=== PATIENT | female | born 1940 | race Caucasian/White ===

== ENCOUNTER 2023-01-08 10:12 | Emergency (ER) | payer MEDICARE, SELFPAY ==
--- NOTE | ~2023-01-08 | XR_ITS ---
EXAMINATION: XR FOOT, RIGHT CLINICAL INFORMATION: Right foot pain COMPARISON: None available. TECHNIQUE: AP, lateral, and oblique views of the right foot. FINDINGS: The ankle mortise and subtalar joints are normal. There is a small retrocalcaneal and tiny calcaneal heel enthesophytes. The proximal and midfoot joints are normal. No acute fracture or dislocation seen. The soft tissues are normal. XR/XR foot RT min 3V IMPRESSION: Small retrocalcaneal and tiny calcaneal heel enthesophyte. No visible acute fracture or dislocation seen.
[2023-01-08 10:36] VITALS: BP 131/59; PULSE 63; RESP 18; TEMP 36.6; O2SAT 99; BMI 27.4
--- NOTE | 2023-01-08 10:59 | ED.GENADULT ---
HPI - General Adult General Chief complaint: Extremity Injury, Lower Stated complaint: R foot pain Time Seen by Provider: 01/08/23 10:55 Source: patient, family (daughter) and embalmer/funeral director Mode of arrival: ambulatory Limitations: language barrier History of Present Illness HPI narrative: Patient is an 82 year old assigned female at with a history of diabetes, HTN, and cardiac problems presenting to the emergency department today with right foot pain. 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 Patient's daughter states that the patient needs refills on all of her medications, a primary care provider, a flue cleaner, and a diabetes doctor. Patient's daughter states that she noticed a dark spot on the patient's right heel and she is concerned about that. Patient denies any dizziness, lightheadedness, abdominal pain, nausea, vomiting, fever, chills, blurry vision, double vision, loss of vision, chest pain, difficulty breathing, shortness of breath, back pain, night sweats, pain with urination, increased urinary frequency, increased urinary urgency, blood in her urine or stool, syncope or a near syncopal episode, recent trauma or falls, bowel incontinence, bladder incontinence, bowel retention, bladder retention, or any other complaints at this time. Relieving factors: none Exacerbating factors: none Associated symptoms: denies other symptoms Treatments prior to arrival: none Related Data Previous Rx's Medication Instructions Recorded amiodarone 200 mg tablet 200 mg PO BID #60 tabs 01/08/23 atorvastatin 20 mg tablet 20 mg PO DAILY #30 tabs 01/08/23 digoxin 125 mcg (0.125 mg) tablet 125 mcg PO DAILY #30 tabs 01/08/23 donepezil 5 mg tablet 5 mg PO DAILY #30 tabs 01/08/23 glipizide 10 mg tablet, extended 10 mg PO DAILY #30 tabs 01/08/23 release 24 hr metoprolol tartrate 50 mg tablet 50 mg PO BID #60 tabs 01/08/23 pantoprazole 40 mg tablet,delayed 40 mg PO DAILY #30 tabs 01/08/23 release rivaroxaban 20 mg tablet (Xarelto) 20 mg PO DAILY #30 tabs 01/08/23 sitagliptin phosphate 100 mg 100 mg PO DAILY #30 tabs 01/08/23 tablet (Januvia) valsartan 160 mg tablet 160 mg PO DAILY #30 tabs 01/08/23 Allergies Allergy/AdvReac Type Severity Reaction Status Date / Time No Known Allergies Allergy Verified 01/08/23 10:36 Review of Systems Constitutional: Constitutional: Reports no additional constitutional complaints, Denies chills, Denies fever(s) and Denies night sweats Eyes: Eyes: Reports no additional eye complaints, Denies blurry vision, Denies change in vision, Denies diplopia, Denies eye discharge, Denies loss of vision and Denies eye pain ENT: Denies dizziness Cardiovascular: Cardiovascular: Reports no additional cardiovascular complaints, Denies chest pain, Denies lightheadedness, Denies Loss of Consciousness and Denies dyspnea Respiratory: Respiratory: Reports no additional respiratory complaints and Denies dyspnea Gastrointestinal: Gastrointestinal: Reports no additional gastrointestinal complaints, Denies abdominal pain, Denies melena, Denies hematochezia, Denies change in bowel habits and Denies change in stool character Genitourinary: Genitourinary: Denies hematuria, Denies urinary frequency, Denies dysuria, Denies urinary incontinence, Denies urinary hesitancy and Denies urinary urgency Musculoskeletal: Musculoskeletal: Reports no additional musculoskeletal complaints, Denies numbness and Denies tingling Comments: right heel pain Neurologic: Denies dizziness, Denies loss of vision, Denies numbness and Denies tingling Psychiatric: Psychiatric: Reports no additional psychiatric complaints Endocrine: Endocrine: Reports no additional endocrine complaints Hematologic/Lymphatic: Hematologic/Lymphatic: Reports no additional hematologic/lymphatic complaints Allergic/Immunologic: Allergic/Immunologic: Reports no additional allergic/immunologic complaints PMFSH Past Medical History Attestation statement: The following information was validated with the patient. (all information validated with the patient's daughter) Source: old records reviewed, obtained from family (patient's daughter) and nursing notes reviewed Social History Social History Advance Directives: No Advance Directives Information Provided: Yes Physical Exam ED Vital Signs: Vital Signs - 24 hr 01/08/23 10:36 Temperature 97.8 F Pulse Rate 63 Respiratory Rate 18 Blood Pressure 131/59 L Pulse Oximetry 99 Oxygen Delivery Method Room Air BMI result Body Mass Index 27.4 Const General: cooperative, no acute distress, alert and awake Nutritional Appearance: well nourished Orientation/consciousness: patient oriented x3 Limitations: no limitations HENMT Head: Yes normal to inspection and Yes atraumatic Ears: hearing grossly normal bilaterally and external ears normal General nose exam: Normal external nose present, no nasal discharge noted and no epistaxis Face and sinus: Yes normal facial exam, No abrasion and No laceration Mouth: Normal oral and palatal mucosa present, no drooling and no muffled voice Eyes General: appearance normal, both eyes and all related structures Periorbital: periorbital findings normal Eyelids: Yes eyelids normal Conjunctivae: conjunctivae normal Pupils: Equal, round and reactive pupils present EOM: EOMs intact bilaterally Neck Neck: Yes normal visual inspection, Yes full ROM and Yes no lymphadenopathy Chest Chest palpation & inspection: normal inspection of the chest Resp Effort & Inspection: normal respiratory effort and able to speak in complete sentences GI Inspection: Yes normal to inspection Neuro General: patient oriented x3 and moves all extremities Cranial nerves: Yes Equal, round and reactive pupils present Cognition (Neuro): normal cognition Motor exam (neuro): 5/5 motor strength present throughout Sensory Exam: Normal double simultaneous stimulation for sensation Coordination: [id number] test normal Extrem Other: left below knee amputation and a small contusion of the right heel Psych Appearance: grossly normal Mental Status: mental status grossly normal Affect: normal affect Attitude: cooperative Thought process: Normal thought process present Thought content: Normal thought content present Insight: Good insight present (Psych) Medical Decision Making Medical Decision Making MDM Narrative: Patient is an 82 year old assigned female at with a history of diabetes, HTN, and cardiac issues presenting to the emergency department today with right heel pain. Patient's physical exam showed a left below knee amputation and right heel contusion. Patient's right foot x-ray showed no acute process. I explained my physical exam findings as well as all test results to the patient and the patient's daughter. I answered all questions asked by the patient and the patient's daughter. I stressed the importance of the patient taking her medication as prescribed. I stressed the importance of the patient following up with her primary care provider, a flue cleaner, and an program manufacturing leader. I stressed the importance of the patient returning to the emergency department immediately if her symptoms were to worsen or if she were to develop any dizziness, shortness of breath, difficulty breathing, chest pain, blurry vision, loss of vision, nausea, vomiting, abdominal pain, fever, chills, back pain, or any other complaints. Patient and the patient's daughter verbalized agreement and understanding with this treatment plan and discharge. Differential Diagnosis Differential Diagnoses: The differential diagnosis associated with the presentation includes right foot contusion Independent Interpretation I performed an independent interpretation of an: Plain X-Ray Interpretation: My interpretation is in agreement with the radiologist's impression of this imaging study. EXAMINATION: XR FOOT, RIGHT CLINICAL INFORMATION: Right foot pain? COMPARISON: None available.? TECHNIQUE: AP, lateral, and oblique views of the right foot. FINDINGS: The ankle mortise and subtalar joints are normal. There is a small retrocalcaneal and tiny calcaneal heel enthesophytes. The proximal and midfoot joints are normal. No acute fracture or dislocation seen. The soft tissues are normal. XR/XR foot RT min 3V IMPRESSION: Small retrocalcaneal and tiny calcaneal heel enthesophyte. No visible acute fracture or dislocation seen. Dictated By: Karan Ceballos MD Signed By: Electronically signed by Karan Ceballos MD 01/08/23 4200 Independent Historian Clinical information obtained from an independent historian. History obtained from or confirmed by: Other (patient's daughter) Discharge Plan Discharge Clinical Impression: Contusion of foot Patient Disposition: Home, Self-Care Instructions: Foot Contusion (ED) Additional Instructions: Follow up with a primary care provider, a flue cleaner, and an program manufacturing leader. Return to the emergency department immediately if your symptoms worsen or if you develop any dizziness, shortness of breath, difficulty breathing, chest pain, blurry vision, loss of vision, nausea, vomiting, abdominal pain, fever, chills, back pain, or any other complaints. Radha un seguimiento con un proveedor de atenci?n primaria, un cardi?logo y un endocrin?logo. Regrese al departamento de emergencias de inmediato si veena s?ntomas empeoran o si presenta mareos, falta de aire, dificultad para respirar, dolor de pecho, visi?n borrosa, p?rdida de la visi?n, n?useas, v?mitos, dolor abdominal, fiebre, escalofr?os, dolor de espalda o cualquier otras quejas. Prescriptions: New valsartan 160 mg tablet 160 mg PO DAILY Qty: 30 0RF digoxin 125 mcg (0.125 mg) tablet 125 mcg PO DAILY Qty: 30 0RF metoprolol tartrate 50 mg tablet 50 mg PO BID Qty: 60 0RF pantoprazole 40 mg tablet,delayed release (DR/EC) 40 mg PO DAILY Qty: 30 0RF Xarelto 20 mg tablet 20 mg PO DAILY Qty: 30 0RF Rx Instructions: must administer with evening meal glipizide 10 mg tablet extended release 24hr 10 mg PO DAILY Qty: 30 0RF Januvia 100 mg tablet 100 mg PO DAILY Qty: 30 0RF donepezil 5 mg tablet 5 mg PO DAILY Qty: 30 0RF amiodarone 200 mg tablet 200 mg PO BID Qty: 60 0RF atorvastatin 20 mg tablet 20 mg PO DAILY Qty: 30 0RF Referrals: [facility] [place] [facility] [Provider Group] (Call to establish and follow up with a flue cleaner (heart doctor). Llame para establecer y hacer un seguimiento con un cardi?logo (m?dico del coraz?n).) [facility] [Provider Group] (Call to establish and follow up with an program manufacturing leader (diabetes doctor). Llame para establecer y hacer un seguimiento con un endocrin?logo (m?dico de diabetes).) [facility] [place] [facility] [Provider Group] (Call to establish and follow up with a primary care provider. Llame para establecer y hacer un seguimiento con un proveedor de atenci?n primaria.) [facility] [place] Primary Care, Eric [Provider Group] (Call to establish and follow up with a primary care provider. Llame para establecer y hacer un seguimiento con un proveedor de atenci?n primaria.) [facility] [place] Primary Care,Lizbeth [Provider Group] (Call to establish and follow up with a primary care provider. Llame para establecer y hacer un seguimiento con un proveedor de atenci?n primaria.) Interventions: ED Discharge Assessment Last Done: 01/08/23 12:31 Discharge Date/Time: 01/08/23 12:32 Print Language: Syrian
== END 2023-01-08 12:32 | disposition home or self-care (01) ==
PROVIDERS: Emergency Provider Student in an Organized Health Care Education/Training Program
DX: S90.31XA Contusion of right foot, initial encounter (principal); X58.XXXA Exposure to other specified factors, initial encounter; Y93.9 Activity, unspecified; Y92.9 Unspecified place or not applicable; Y99.9 Unspecified external cause status; Z79.899 Other long term (current) drug therapy
CPT/HCPCS: 73630; 99282; 99283

== ENCOUNTER 2023-01-16 11:06 | Emergency (ER) | payer MEDICARE, SELFPAY ==
--- NOTE | ~2023-01-16 | XR_ITS ---
EXAMINATION: XR CHEST CLINICAL INFORMATION: Central line placement COMPARISON: None available. TECHNIQUE: Frontal view of the chest was obtained. FINDINGS: There is a right jugular line with tip projecting over the cavoatrial junction. The cardiac and mediastinal contours are normal. The lungs are clear. No pleural effusion or pneumothorax. Mild degenerative changes of the spine. XR/XR chest 1V IMPRESSION: Right jugular line projects over cavoatrial junction. No pneumothorax.
--- NOTE | ~2023-01-16 | XR_ITS ---
EXAMINATION: XR FOOT, RIGHT CLINICAL INFORMATION: Blood blister COMPARISON: None available. TECHNIQUE: AP, lateral, and oblique views of the right foot. FINDINGS: The bones are osteopenic. No fracture or dislocation. Mild arthritis at the first MTP joint. Small calcaneal spur. Mild soft tissue arterial calcification. Soft tissue swelling over the posterior heel new or increased from recent exam. No abnormal air collection or soft tissue foreign body seen. XR/XR foot RT min 3V IMPRESSION: Soft tissue swelling over the posterior heel new or increased from recent exam, otherwise no change.
[2023-01-16 11:31] VITALS: BP 56/33; PULSE 42; RESP 18; TEMP 36.3; O2SAT 98; BMI 24.0
--- NOTE | 2023-01-16 11:31 | ED.GENADULT ---
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 Patient's daughter states that the patient was previously seen here for the heel but now it is worse. Patient's daughter states that they have not been able to get her in for follow up at any of the specialists she needs. Patient denies any dizziness, lightheadedness, abdominal pain, nausea, vomiting, fever, chills, blurry vision, double vision, loss of vision, chest pain, difficulty breathing, shortness of breath, back pain, night sweats, pain with urination, increased urinary frequency, increased urinary urgency, blood in her urine or stool, syncope or a near syncopal episode, recent trauma or falls, bowel incontinence, bladder incontinence, bowel retention, bladder retention, or any other complaints at this time. Location: right and lower extremity Severity: mild Relieving factors: none Exacerbating factors: none Associated symptoms: denies other symptoms Treatments prior to arrival: none Related Data Home Medications Medication Instructions Recorded Confirmed gabapentin 400 mg capsule 400 mg PO BEDTIME 01/16/23 01/16/23 Previous Rx's Medication Instructions Recorded amiodarone 200 mg tablet 200 mg PO BID #60 tabs 01/08/23 atorvastatin 20 mg tablet 20 mg PO DAILY #30 tabs 01/08/23 digoxin 125 mcg (0.125 mg) tablet 125 mcg PO DAILY #30 tabs 01/08/23 donepezil 5 mg tablet 5 mg PO DAILY #30 tabs 01/08/23 glipizide 10 mg tablet, extended 10 mg PO DAILY #30 tabs 01/08/23 release 24 hr metoprolol tartrate 50 mg tablet 50 mg PO BID #60 tabs 01/08/23 pantoprazole 40 mg tablet,delayed 40 mg PO DAILY #30 tabs 01/08/23 release rivaroxaban 20 mg tablet (Xarelto) 20 mg PO DAILY #30 tabs 01/08/23 sitagliptin phosphate 100 mg 100 mg PO DAILY #30 tabs 01/08/23 tablet (Januvia) valsartan 160 mg tablet 160 mg PO DAILY #30 tabs 01/08/23 Allergies Allergy/AdvReac Type Severity Reaction Status Date / Time No Known Allergies Allergy Verified 01/08/23 10:36 Review of Systems Constitutional: Constitutional: Reports no additional constitutional complaints, Denies chills, Denies fever(s) and Denies night sweats Eyes: Eyes: Reports no additional eye complaints, Denies blurry vision, Denies change in vision, Denies diplopia, Denies eye discharge, Denies loss of vision and Denies eye pain ENT: Denies dizziness Cardiovascular: Cardiovascular: Reports no additional cardiovascular complaints, Denies chest pain, Denies lightheadedness, Denies Loss of Consciousness and Denies dyspnea Respiratory: Respiratory: Reports no additional respiratory complaints and Denies dyspnea Gastrointestinal: Gastrointestinal: Reports no additional gastrointestinal complaints, Denies abdominal pain, Denies melena, Denies hematochezia, Denies change in bowel habits and Denies change in stool character Genitourinary: Genitourinary: Denies hematuria, Denies urinary frequency, Denies dysuria, Denies urinary incontinence, Denies urinary hesitancy and Denies urinary urgency Musculoskeletal: Musculoskeletal: Denies numbness and Denies tingling Comments: left below knee amputation, right heel blood blister Neurologic: Denies dizziness, Denies loss of vision, Denies numbness and Denies tingling Psychiatric: Psychiatric: Reports no additional psychiatric complaints Endocrine: Endocrine: Reports no additional endocrine complaints Hematologic/Lymphatic: Hematologic/Lymphatic: Reports no additional hematologic/lymphatic complaints Allergic/Immunologic: Allergic/Immunologic: Reports no additional allergic/immunologic complaints PMFSH Past Medical History Attestation statement: The following information was validated with the patient. (all information validated with the patient's daughter) Source: old records reviewed, obtained from family (patient's daughter) and nursing notes reviewed Social History Social History Advance Directives: No Advance Directives Information Provided: Yes Physical Exam ED Vital Signs: Vital Signs - 24 hr 01/16/23 11:31 01/16/23 13:12 01/16/23 15:21 Temperature 97.4 F 97.6 F 97.7 F Pulse Rate 42 L 42 L 44 L Respiratory Rate 18 14 18 Blood Pressure 56/33 L 67/38 L 88/49 L Pulse Oximetry 98 Oxygen Delivery Method Room Air Room Air BMI result Body Mass Index 24.0 Const General: cooperative, no acute distress, alert and awake Nutritional Appearance: well nourished Orientation/consciousness: patient oriented x3 Limitations: no limitations HENMT Head: Yes normal to inspection and Yes atraumatic Ears: hearing grossly normal bilaterally and external ears normal General nose exam: Normal external nose present, no nasal discharge noted and no epistaxis Face and sinus: Yes normal facial exam, No abrasion and No laceration Mouth: Normal oral and palatal mucosa present, no drooling and no muffled voice Eyes General: appearance normal, both eyes and all related structures Periorbital: periorbital findings normal Eyelids: Yes eyelids normal Conjunctivae: conjunctivae normal Pupils: Equal, round and reactive pupils present EOM: EOMs intact bilaterally Neck Neck: Yes normal visual inspection, Yes full ROM and Yes no lymphadenopathy Chest Chest palpation & inspection: normal inspection of the chest Resp Effort & Inspection: normal respiratory effort and able to speak in complete sentences Auscultation: clear to auscultation bilaterally Cardio Rate: bradycardic Rhythm: abnormal rhythm irregularly irregular GI Inspection: Yes normal to inspection Neuro General: patient oriented x3 and moves all extremities Cranial nerves: Yes Equal, round and reactive pupils present Cognition (Neuro): normal cognition Motor exam (neuro): 5/5 motor strength present throughout Sensory Exam: Normal double simultaneous stimulation for sensation Coordination: [id number] test normal Extrem Other: below left knee amputation, blood blister / hematoma present to the right heel Psych Appearance: grossly normal Mental Status: mental status grossly normal Affect: normal affect Attitude: cooperative Thought process: Normal thought process present Thought content: Normal thought content present Insight: Good insight present (Psych) Course Course Course Narrative: RME: 82-year-old female with past medical history of diabetes, HTN, dysrhythmia, c/o worsening blood blister to R heel x1 week. 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 denies injury, trauma or fall. Patient also lightheadedness/dizziness with standing. Patient was evaluated in our ED on 01/08/23 for similar symptoms, had all home medications refilled hypotensive in triage 56/33 > charge nurse aware, Blood blister noted to right heel, tender to palpation, no surrounding cellulitis. NV intact EKG, labs, UA, foot x-ray, lactic/blood cultures, IVF ordered Full HPI, ROS and PE to be performed by primary ED provider. Medications Administered Discontinued Medications Generic Name Dose Route Start Last Admin Trade Name Codi PRN Reason Stop Dose Admin Glucagon 1 mg 01/16/23 13:51 01/16/23 15:23 Glucagon,Human Recombinant 1 Mg/Ml Vial IVPUSH 01/16/23 13:52 1 mg ONCE ONE Administration Magnesium Sulfate 2 gm in 50 mls @ 25 mls/hr 01/16/23 12:30 01/16/23 15:23 Magnesium Sulfate/H2o IV 01/16/23 14:29 25 mls/hr ONCE ONE Administration Procedures Central Line Placement Right IJ: Time Out Performed: Yes Patient Placed on Monitor/Pulse Ox: Yes MD Prep: gown and gloves Central Line Prep: Povidone-Iodine 1% and sterile drapes applied Local Anesthetic: lidocaine 1% Amount of anesthesia used (mL): 5 Ultrasound Used for Placement: Yes Central Line Lumen Inserted: triple Post Procedure: sutured in place, good blood return, all ports aspirated, flushed, capped and sterile dressing applied Post Procedure X-Ray: tip of catheter in good position and no pneumothorax seen Patient Tolerated Procedure: well Complications: none Additional Comments: Performed by Dr. Dao Medical Decision Making Medical Decision Making [facility] Narrative: Patient is an 82 year old assigned female at with a history of atrial fib, DM, and HTN presenting to the emergency department today with a right heel hematoma. Patient's physical exam showed profound hypotension and bradycardia with a small right heel hematoma and a chronic below the left knee amputation. Patient's blood work showed an ESR of 22, potassium of 3.2, magnesium of 1.3, initial trop of 38.5, CRP of 3.19, BNP of 987 and a dig level of 2.2. Patient's EKG showed a bradycardic atrial fib. Patient's x-ray showed no acute process. Patient's right heel XR showed worsening soft tissue swelling but was otherwise unremarkable. Patient's clinical presentation is most consistent with an electrolyte abnormality and heart failure. Patient's clinical presentation is not consistent with sepsis (@1604). Patient's blood pressure was consistently low. Dr. Dao placed a central line, without incident. Consulted cardiology who recommended the patient have all of her pressure / arrhythmic medications stopped and her electrolytes fixed. Due to no ICU beds here at [facility], [facility] was called. Dr. Cardenas at [facility] accepted the patient. Patient was started on levophed and per the request of Dr. Cardenas, albumin was hung. I explained my physical exam findings as well as all test results to the patient and the patient's family. I answered all questions asked by the patient and the patient's family. Patient and the patient's family verbalized agreement and understanding with this treatment plan and transfer. Differential Diagnosis Differential Diagnoses: The differential diagnosis associated with the presentation includes hypotension, heart failure, hypomagnesemia, hypokalemia Admission/Observation Consideration of admission/observation: Escalation of care including admission/observation considered Patient is to be transferred to [facility] ICU. Lab Data MDM Lab Attestation statement: I reviewed the patient's lab results. 01/16/23 11:49 01/16/23 11:49 Labs: Lab Results 01/16/23 01/16/23 01/16/23 Range/Units 11:49 11:49 11:49 WBC 7.4 (4.8-10.8) X10*3/uL RBC 4.69 (4.20-5.50) X10*6/uL Hgb 11.7 L (12.0-16.0) g/dl Hct 37.9 (37.0-47.0) % MCV 80.8 (80.0-98.0) fL MCH 24.9 L (27.0-33.0) pg MCHC 30.9 L (31.0-35.0) g/dl RDW 17.2 H (11.0-16.0) % Plt Count 205 (160-400) X10*3/uL MPV 8.5 L (9.4-12.3) fL Immature Gran % (Auto) 0.4 (0.0-0.4) % Neut % (Auto) 67.2 (45-73) % Lymph % (Auto) 21.1 (20-40) % [place] % (Auto) 9.8 (2-11) % Eos % (Auto) 1.1 (0-4) % Baso % (Auto) 0.4 (0-2) % Lymph # (Auto) 1.6 (1.2-4.9) X10*3/uL [place] # (Auto) 0.7 (0.1-1.2) X10*3/uL Eos # (Auto) 0.1 (0.0-0.4) X10*3/uL Baso # (Auto) 0.0 (0.0-0.2) X10*3/uL Abs Immat Gran (auto) 0.03 (0.00-0.03) X10*3/uL Absolute Neuts (auto) 5.0 (2.0-8.3) x10*3/uL Absolute Nucleated RBC 0.000 (0.0-0.012) X10*3/uL Nucleated RBC % (auto) 0.0 (0.0-0.2) /100WBC ESR 22 H (0-20) MM/HR PT 29.9 H (10.0-13.1) SEC INR 2.5 H (0.9-1.1) Sodium (135-145) mmol/L Potassium (3.3-5.1) mmol/L Chloride (96-108) mmol/L Carbon Dioxide (22-29) mmol/L Anion Gap (12-20) BUN (9-16) mg/dL Creatinine (0.5-1.4) mg/dL Estim Creat Clear Calc Estimated GFR Random Glucose (60-115) mg/dL Lactic Acid (0.5-2.0) mmol/L Calcium (8.4-10.2) mg/dL Magnesium (1.6-2.6) mg/dL Total Bilirubin (0.0-1.0) mg/dL Direct Bilirubin (0.0-0.5) mg/dL AST (5-31) U/L ALT (0-31) U/L Alkaline Phosphatase (39-117) U/L Troponin I High Sens (<3.5-17.0) ng/L C-Reactive Protein (< or = 0.50) mg/dL B-Natriuretic Peptide (<100) pg/mL Total Protein (6.5-8.0) g/dL Albumin (3.5-5.0) g/dL Digoxin (0.8-2.0) ng/mL 01/16/23 01/16/23 01/16/23 Range/Units 11:49 14:50 14:50 WBC (4.8-10.8) X10*3/uL RBC (4.20-5.50) X10*6/uL Hgb (12.0-16.0) g/dl Hct (37.0-47.0) % MCV (80.0-98.0) fL MCH (27.0-33.0) pg MCHC (31.0-35.0) g/dl RDW (11.0-16.0) % Plt Count (160-400) X10*3/uL MPV (9.4-12.3) fL Immature Gran % (Auto) (0.0-0.4) % Neut % (Auto) (45-73) % Lymph % (Auto) (20-40) % [place] % (Auto) (2-11) % Eos % (Auto) (0-4) % Baso % (Auto) (0-2) % Lymph # (Auto) (1.2-4.9) X10*3/uL [place] # (Auto) (0.1-1.2) X10*3/uL Eos # (Auto) (0.0-0.4) X10*3/uL Baso # (Auto) (0.0-0.2) X10*3/uL Abs Immat Gran (auto) (0.00-0.03) X10*3/uL Absolute Neuts (auto) (2.0-8.3) x10*3/uL Absolute Nucleated RBC (0.0-0.012) X10*3/uL Nucleated RBC % (auto) (0.0-0.2) /100WBC ESR (0-20) MM/HR PT (10.0-13.1) SEC INR (0.9-1.1) Sodium 143 (135-145) mmol/L Potassium 3.2 L (3.3-5.1) mmol/L Chloride 103 (96-108) mmol/L Carbon Dioxide 30 H (22-29) mmol/L Anion Gap 13 (12-20) BUN 9 (9-16) mg/dL Creatinine 0.88 (0.5-1.4) mg/dL Estim Creat Clear Calc 43.9 Estimated GFR > 60 Random Glucose 141 H (60-115) mg/dL Lactic Acid 1.2 (0.5-2.0) mmol/L Calcium 8.5 (8.4-10.2) mg/dL Magnesium 1.3 L* (1.6-2.6) mg/dL Total Bilirubin 0.8 (0.0-1.0) mg/dL Direct Bilirubin 0.3 (0.0-0.5) mg/dL AST 25 (5-31) U/L ALT 10 (0-31) U/L Alkaline Phosphatase 87 (39-117) U/L Troponin I High Sens 38.5 H (<3.5-17.0) ng/L C-Reactive Protein 3.19 H (< or = 0.50) mg/dL B-Natriuretic Peptide (<100) pg/mL Total Protein 6.2 L (6.5-8.0) g/dL Albumin 3.3 L (3.5-5.0) g/dL Digoxin (0.8-2.0) ng/mL 01/16/23 01/16/23 Range/Units 14:50 14:55 WBC (4.8-10.8) X10*3/uL RBC (4.20-5.50) X10*6/uL Hgb (12.0-16.0) g/dl Hct (37.0-47.0) % MCV (80.0-98.0) fL MCH (27.0-33.0) pg MCHC (31.0-35.0) g/dl RDW (11.0-16.0) % Plt Count (160-400) X10*3/uL MPV (9.4-12.3) fL Immature Gran % (Auto) (0.0-0.4) % Neut % (Auto) (45-73) % Lymph % (Auto) (20-40) % [place] % (Auto) (2-11) % Eos % (Auto) (0-4) % Baso % (Auto) (0-2) % Lymph # (Auto) (1.2-4.9) X10*3/uL [place] # (Auto) (0.1-1.2) X10*3/uL Eos # (Auto) (0.0-0.4) X10*3/uL Baso # (Auto) (0.0-0.2) X10*3/uL Abs Immat Gran (auto) (0.00-0.03) X10*3/uL Absolute Neuts (auto) (2.0-8.3) x10*3/uL Absolute Nucleated RBC (0.0-0.012) X10*3/uL Nucleated RBC % (auto) (0.0-0.2) /100WBC ESR (0-20) MM/HR PT (10.0-13.1) SEC INR (0.9-1.1) Sodium (135-145) mmol/L Potassium (3.3-5.1) mmol/L Chloride (96-108) mmol/L Carbon Dioxide (22-29) mmol/L Anion Gap (12-20) BUN (9-16) mg/dL Creatinine (0.5-1.4) mg/dL Estim Creat Clear Calc Estimated GFR Random Glucose (60-115) mg/dL Lactic Acid (0.5-2.0) mmol/L Calcium (8.4-10.2) mg/dL Magnesium (1.6-2.6) mg/dL Total Bilirubin (0.0-1.0) mg/dL Direct Bilirubin (0.0-0.5) mg/dL AST (5-31) U/L ALT (0-31) U/L Alkaline Phosphatase (39-117) U/L Troponin I High Sens (<3.5-17.0) ng/L C-Reactive Protein (< or = 0.50) mg/dL B-Natriuretic Peptide 987 H (<100) pg/mL Total Protein (6.5-8.0) g/dL Albumin (3.5-5.0) g/dL Digoxin 2.2 H* (0.8-2.0) ng/mL Independent Interpretation I performed an independent interpretation of an: EKG and Plain X-Ray Interpretation: Vent. Rate: 039 BPM ? ? Atrial Rate: 000 BPM P-R Int: 000 ms? QRS Dur: 086 ms QT Int: 502 ms ? ? ? P-R-T Axes: 000 -02 -66 degrees QTc Int: 404 ms ? Atrial fibrillation with slow ventricular response with a competing junctional pacemaker Left ventricular hypertrophy with repolarization abnormality ( R in aVL ) Abnormal ECG No previous ECGs available ? DD/ 1219 My interpretation is in agreement with the radiologist's impression of this imaging study. EXAMINATION: XR CHEST CLINICAL INFORMATION: Central line placement COMPARISON: None available. TECHNIQUE: Frontal view of the chest was obtained. FINDINGS: There is a right jugular line with tip projecting over the cavoatrial junction. The cardiac and mediastinal contours are normal. The lungs are clear. No pleural effusion or pneumothorax. Mild degenerative changes of the spine. XR/XR chest 1V IMPRESSION: Right jugular line projects over cavoatrial junction. No pneumothorax. Dictated By: Coral Posey MD Signed By: Electronically signed by Coral Posey MD 01/16/23 1549 EXAMINATION: XR FOOT, RIGHT CLINICAL INFORMATION: Blood blister? COMPARISON: None available.? TECHNIQUE: AP, lateral, and oblique views of the right foot. FINDINGS: The bones are osteopenic. No fracture or dislocation. Mild arthritis at the first MTP joint. Small calcaneal spur. Mild soft tissue arterial calcification.? Soft tissue swelling over the posterior heel new or increased from recent exam. No abnormal air collection or soft tissue foreign body seen. XR/XR foot RT min 3V IMPRESSION: Soft tissue swelling over the posterior heel new or increased from recent exam, otherwise no change. Dictated By: Coral Posey MD Signed By: Electronically signed by Coral Posey MD 01/16/23 1257 Independent Historian Clinical information obtained from an independent historian. History obtained from or confirmed by: Other (family) Chronic Conditions Patient?s care impacted by: Diabetes and Hypertension Critical Care Time Critical Care Time Critical Care Time: Yes Total Critical Care Time: 45 Attestation: I spent 45 minutes of Critical Care Time with this patient. This does not include time spent on separately reported billable procedures. Discharge Plan Discharge Clinical Impression: Hypotension, Atrial fibrillation Patient Disposition: [facility] Transfer Details: [facility] ICU due to lack of ICU beds here at [facility] Prescriptions: No Action valsartan 160 mg tablet 160 mg PO DAILY Qty: 30 0RF digoxin 125 mcg (0.125 mg) tablet 125 mcg PO DAILY Qty: 30 0RF metoprolol tartrate 50 mg tablet 50 mg PO BID Qty: 60 0RF pantoprazole 40 mg tablet,delayed release (DR/EC) 40 mg PO DAILY Qty: 30 0RF Xarelto 20 mg tablet 20 mg PO DAILY Qty: 30 0RF Rx Instructions: must administer with evening meal glipizide 10 mg tablet extended release 24hr 10 mg PO DAILY Qty: 30 0RF Januvia 100 mg tablet 100 mg PO DAILY Qty: 30 0RF donepezil 5 mg tablet 5 mg PO DAILY Qty: 30 0RF amiodarone 200 mg tablet 200 mg PO BID Qty: 60 0RF atorvastatin 20 mg tablet 20 mg PO DAILY Qty: 30 0RF gabapentin 400 mg Capsule 400 mg PO BEDTIME Print Language: [place] Leonean
--- NOTE | 2023-01-16 11:41 | ECG_ITS ---
Test Reason : ligthheaded Blood Pressure : / mmHG Vent. Rate : 039 BPM Atrial Rate : 000 BPM P-R Int : 000 ms QRS Dur : 086 ms QT Int : 502 ms P-R-T Axes : 000 -02 -66 degrees QTc Int : 404 ms Atrial fibrillation with slow ventricular response Left ventricular hypertrophy with repolarization abnormality ( R in aVL ) possible digoxin effect Abnormal ECG No previous ECGs available Referred By: Codi Wesley Electronically Signed By:MANOLO SRINIVASAN
[2023-01-16 11:57] LABS: MANUAL DIFF FLAG NO
[2023-01-16 12:00] LABS: Basophils Percent Auto 0.4 % (0-2); Eosinophils Absolute Auto 0.1 X10*3/uL (0.0-0.4); Eosinophils Percent Auto 1.1 % (0-4); Hematocrit 37.9 % (37.0-47.0); Hemoglobin 11.7 g/dl (12.0-16.0); Imm Gran Abs Auto 0.03 X10*3/uL (0.00-0.03); Imm Gran Pct Auto 0.4 % (0.0-0.4); Lymphocytes Absolute Auto 1.6 X10*3/uL (1.2-4.9); Lymphocytes Percent Auto 21.1 % (20-40); Mean Corpuscular HGB Conc 30.9 g/dl (31.0-35.0); Mean Corpuscular Hemoglobin 24.9 pg (27.0-33.0); Mean Corpuscular Volume 80.8 fL (80.0-98.0); Mean Platelet Volume 8.5 fL (9.4-12.3); Monocytes Absolute Auto 0.7 X10*3/uL (0.1-1.2); Monocytes Percent Auto 9.8 % (2-11); Neutrophils Percent Auto 67.2 % (45-73); Platelet Count 205 X10*3/uL (160-400); Red Blood Count 4.69 X10*6/uL (4.20-5.50); Red Cell Distribution Width 17.2 % (11.0-16.0); White Blood Count 7.4 X10*3/uL (4.8-10.8)
[2023-01-16 12:07] LABS: INTERNATIONAL NORM RATIO 2.5 (0.9-1.1); Prothrombin Time 29.9 SEC (10.0-13.1)
[2023-01-16 12:20] LABS: Alanine Aminotransferase 10 U/L (0-31); Albumin Level 3.3 g/dL (3.5-5.0); Alkaline Phosphatase 87 U/L (39-117); Anion Gap 13 (12-20); Aspartate Amino Transferase 25 U/L (5-31); Bilirubin Direct 0.3 mg/dL (0.0-0.5); Bilirubin Total 0.8 mg/dL (0.0-1.0); Blood Urea Nitrogen 9 mg/dL (9-16); C Reactive Protein 3.19 mg/dL (< or = 0.50); Calcium 8.5 mg/dL (8.4-10.2); Carbon Dioxide 30 mmol/L (22-29); Chloride 103 mmol/L (96-108); Creatinine Clr Calc Pharmacy 43.9; Estimated Glomerular Filt Rate > 60; Glucose Random 141 mg/dL (60-115); Magnesium 1.3 mg/dL (1.6-2.6); Potassium 3.2 mmol/L (3.3-5.1); Sodium 143 mmol/L (135-145); Total Protein 6.2 g/dL (6.5-8.0)
[2023-01-16 12:45] LABS: Erythrocyte Sedimentation Rate 22 MM/HR (0-20)
[2023-01-16 13:12] VITALS: BP 67/38; PULSE 42; RESP 14; TEMP 36.4
[2023-01-16] MEDS: 0.9 % Sodium Chloride 1,000 ML 999 ML IV (14:00)
--- NOTE | 2023-01-16 14:06 | PHA.MEDREC ---
Pharmacy Consult ? Medication Reconciliation Pharmacy has completed the medication reconciliation. Patient's just here on 01/08 where all medications were refilled expected a few. patient daughter reports patient on digoxin, gabapentin and donepezil still even though they were no refilled last time in the ER. Patient had empty bottle of gabapentin and only a few tablets of donepezil in the bottle with her. Radha Marmolejo, BertD
--- NOTE | 2023-01-16 14:25 | PC.NURSE ---
PT IS VERY DIFFICULT ACCESS, DR MORAN IS CURRENTLY PLACING A CENTRAL LINE
[2023-01-16 15:12] LABS: Lactic Acid 1.2 mmol/L (0.5-2.0)
[2023-01-16 15:21] VITALS: BP 88/49; PULSE 44; RESP 18; TEMP 36.5
[2023-01-16 15:22] LABS: Digoxin 2.2 ng/mL (0.8-2.0)
[2023-01-16 15:23] LABS: B Type Natriuretic Peptide 987 pg/mL (<100)
[2023-01-16 15:23] LABS: Troponin-I High Sensitivity 38.5 ng/L (<3.5-17.0)
[2023-01-16] MEDS: Magnesium Sulfate/H2O 2 GM/50 ML PIGGYBACK IV (15:23)
[2023-01-16 16:16] VITALS: BP 67/41; PULSE 40; RESP 18; TEMP 36.6
--- NOTE | 2023-01-16 16:18 | PC.NURSE ---
[facility] NEEDS ASSIST WITH TRANSFERS DUE TO L LEG AMPUTATION. [facility] IN [id number] WILL TRANSFER TO [facility]
[2023-01-16 16:24] LABS: Appearance Urine Turbid; Color Urine Dark Yellow; Glucose Urine UA Negative (Negative); Leukocyte Esterase Urine Large (3+) (Negative); Nitrite Urine Negative (Negative); PH 5.5 (5.0-9.0); UMIC TRIGGER UACC YES; Urine Blood Trace (Negative); Urine Ketones Trace mg/dL (Negative); Urine Protein 30 (1+) mg/dL (Neg-Trace)
[2023-01-16] MEDS: Potassium Chloride/H20 20 MEQ/100 ML PIGGYBACK 100 MEQ IV (16:31)
--- NOTE | 2023-01-16 16:33 | MHC.EDTECH ---
due to no icu bed at [place] provider requested the pt be transfered to another facility. [facility] declined but [facility] Accepted the pt. Pt will be transfered to the care of Dr Cardenas. pt will be going out [facility] this was booked with Lisa. Pt will be going to [phone] at [facility].
[2023-01-16 16:44] LABS: Bacteria Urine None Seen (None Seen); Hyaline Casts Urine >20 /LPF (0-2); RBC Urine >20 /HPF (0-2); UACC Culture Trigger YES; WBC Urine >50 /HPF (0-5)
== END 2023-01-16 17:00 | disposition short-term general hospital (02) ==
PROVIDERS: Physician Assistant; Physician Assistant Medical; Emergency Provider Emergency Medicine Emergency Medical Services
DX: I95.9 Hypotension, unspecified (principal); I48.91 Unspecified atrial fibrillation; E11.9 Type 2 diabetes mellitus without complications; S90.821A Blister (nonthermal), right foot, initial encounter; X58.XXXA Exposure to other specified factors, initial encounter; Y93.9 Activity, unspecified; Z89.512 Acquired absence of left leg below knee; Z79.899 Other long term (current) drug therapy
CPT/HCPCS: 36415; 36556; 71045; 73630; 80048; 80076; 80162; 81001; 83605; 83735; 83880; 84484; 85025; 85610; 85652; 86140; 87040; 87086; 87088; 93005; 96374; 96375; 99285; J1610; J3475

== ENCOUNTER 2023-02-20 08:00 | Outpatient (RCR) | payer MEDICARE, MEDICAID, SELFPAY | END 2023-04-26 16:00 | disposition home or self-care (01) | LOC: HO.WCC 08:00 | PROVIDERS: Visit Provider Surgery | DX: E11.621 Type 2 diabetes mellitus with foot ulcer (principal); L97.412 Non-pressure chronic ulcer of right heel and midfoot with fat layer exposed; E11.51 Type 2 diabetes mellitus with diabetic peripheral angiopathy without gangrene; I10 Essential (primary) hypertension; Z79.01 Long term (current) use of anticoagulants; Z79.84 Long term (current) use of oral hypoglycemic drugs; Z79.899 Other long term (current) drug therapy | CPT/HCPCS: 11042; 11043; 99212 ==

== ENCOUNTER 2023-03-26 11:49 | Outpatient (REF) | payer OTHER, MEDICARE, MEDICAID, SELFPAY ==
--- NOTE | ~2023-03-26 | XR_ITS ---
EXAMINATION: XR SHOULDER, RIGHT CLINICAL INFORMATION: Acute pain COMPARISON: None available. TECHNIQUE: Three views of the right shoulder. FINDINGS: No acute visible fracture or dislocation. Reduction of the acromiohumeral interval suggesting rotator cuff pathology. Mild to moderate degenerative arthropathy of the glenohumeral and acromioclavicular joint. Joint spaces and alignment are otherwise maintained. Soft tissues are unremarkable. Visualized portions of the chest are unremarkable. XR/XR shoulder RT min 2V IMPRESSION: 1. No acute visible fracture or dislocation. 2. Reduction of the acromiohumeral interval suggesting rotator cuff pathology. 3. Mild to moderate degenerative arthropathy of the glenohumeral and acromioclavicular joint.
== END 2023-03-26 11:50 | disposition home or self-care (01) ==
LOC: HO.XRAY 11:49
PROVIDERS: Visit Provider Pediatrics
DX: M25.511 Pain in right shoulder (principal)
CPT/HCPCS: 73030

== ENCOUNTER 2023-05-31 12:40 | Outpatient (AMB) | payer MEDICARE, MEDICAID, SELFPAY ==
[2023-05-31 13:23] VITALS: BMI 24.0
--- NOTE | 2023-05-31 13:23 | MHC.OFFVIS ---
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 Pt states she has Hx of Vascular disease in her Left LE. Pt states that Right LE has pain and has to sleep with a pillow under her leg for elevation. Pt has pain, cramping, burning, redness, swelling. 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 She had been treated in the past in [place]. 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 That remain nonhealing and on 12/17 she underwent a left AKA. It appears to be doing relatively well. She has been using a wheelchair for the most part. She reports that most recently she has been fitted for a prosthetic but has not started using it. Her current concern is her right lower extremity. She has developed a right posterior heel ulceration. There is also a source of pain and discomfort for her. 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) Social History (Updated 05/31/23 @ 13:31 by BYRON Padilla) Patient Tobacco Use Status: Never used Tobacco Review of Systems Const All systems reviewed & are unremarkable except as noted in HPI and below Reports no additional complaints ENT Reports Normal hearing present Card Denies chest pain, Denies chest pain at rest, Denies chest pain with activity and Denies pedal edema Resp Denies cough GI Denies abdominal pain Musc Denies abnormal gait, Denies muscle cramps and Denies radiating pain into limb Skin/Breast Denies skin ulcer and Denies wounds Neuro Reports Normal hearing present and Denies abnormal gait Psych Reports no additional complaints Physical Exam Vital Signs: BMI result Body Mass Index 24.0 Const General: cooperative, healthy appearing and comfortable Orientation/consciousness: oriented to person, oriented to place and oriented to time HEENT Head: Yes normal to inspection Neck Neck: Yes normal visual inspection Carotids: no bruits Chest Chest palpation & inspection: normal inspection of the chest Resp Effort & Inspection: normal respiratory effort and able to speak in complete sentences Auscultation: clear to auscultation bilaterally, no crackles, no rales, no rhonchi and no wheezes Cardio Other: Right DP signal, right heel pressure ulcer Rate: regular rate Rhythm: regular rhythm Heart sounds: S1 normal heart sound present and S2 normal heart sound present Bruits: no carotid bruits GI Inspection: Yes normal to inspection Skin Other: Left AKA well-healed Wounds: amputation site Hair: normal Neuro General: oriented to person, oriented to place and oriented to time Cranial nerves: Yes CN's II-XII intact bilaterally and Yes Normal hearing present Cognition (Neuro): normal cognition Motor exam (neuro): 5/5 motor strength present throughout Extrem Other: venous exam: No significant superficial varicosities or spider telangiectasias, minimal edema General: No clubbing, No cyanosis and No edema Psych Appearance: grossly normal Mental Status: mental status grossly normal Speech and movement: Normal speech and movement present Assessment & Plan Assessment & Plan (1) PAD (peripheral artery disease): Comment: 12/21/2022 - left AKA done in [place] Code(s): I73.9 - Peripheral vascular disease, unspecified Plan: In short there is concern of right lower extremity peripheral vascular disease. We have to be extremely cautious as she has already had a left AKA. I have taken the liberty of ordering noninvasive testing. We have discussed routine risk factor modification. The patient will follow up with us after testing. Orders: Orders US arterial duplex LE RT 1 Week I73.9 - Peripheral vascular disease, unspecified Coding Level of Care Code New Pt Level 4 (62049) Diagnoses PAD (peripheral artery disease) I73.9
== END 2023-05-31 14:06 | disposition home or self-care (01) ==
PROVIDERS: Visit Provider Surgery Vascular Surgery
DX: I73.9 Peripheral vascular disease, unspecified (principal); Z89.612 Acquired absence of left leg above knee
CPT/HCPCS: 99203

== ENCOUNTER → 2023-05-31 12:40 | Outpatient (BNVA) | payer MEDICARE, MEDICAID, SELFPAY | PROVIDERS: Visit Provider Surgery Vascular Surgery ==

== ENCOUNTER 2023-06-22 08:58 | Outpatient (REF) | payer MEDICARE, MEDICAID, SELFPAY ==
[2023-06-22 14:52] LABS: MANUAL DIFF FLAG NO
[2023-06-22 14:59] LABS: Basophils Percent Auto 0.3 % (0-2); Eosinophils Absolute Auto 0.1 X10*3/uL (0.0-0.4); Eosinophils Percent Auto 1.8 % (0-4); Hematocrit 34.4 % (37.0-47.0); Hemoglobin 10.7 g/dl (12.0-16.0); Imm Gran Abs Auto 0.01 X10*3/uL (0.00-0.03); Imm Gran Pct Auto 0.1 % (0.0-0.4); Lymphocytes Absolute Auto 1.7 X10*3/uL (1.2-4.9); Lymphocytes Percent Auto 25.4 % (20-40); Mean Corpuscular HGB Conc 31.1 g/dl (31.0-35.0); Mean Corpuscular Hemoglobin 25.1 pg (27.0-33.0); Mean Corpuscular Volume 80.6 fL (80.0-98.0); Mean Platelet Volume 10.1 fL (9.4-12.3); Monocytes Absolute Auto 0.6 X10*3/uL (0.1-1.2); Monocytes Percent Auto 9.4 % (2-11); Neutrophils Absolute Auto 4.2 x10*3/uL (2.0-8.3); Platelet Count 350 X10*3/uL (160-400); Red Blood Count 4.27 X10*6/uL (4.20-5.50); Red Cell Distribution Width 15.3 % (11.0-16.0); White Blood Count 6.7 X10*3/uL (4.8-10.8)
[2023-06-22 15:06] LABS: Estimated Average Glucose 169 mg/dL; Hemoglobin A1C 145.3404 umol/L; Hemoglobin A1c % 7.5 % (<6.0)
[2023-06-22 15:22] LABS: Alanine Aminotransferase 7 U/L (0-31); Alkaline Phosphatase 88 U/L (39-117); Anion Gap 14 (12-20); Aspartate Amino Transferase 17 U/L (5-31); Bilirubin Direct 0.3 mg/dL (0.0-0.5); Bilirubin Total 0.6 mg/dL (0.0-1.0); Blood Urea Nitrogen 16 mg/dL (9-16); Carbon Dioxide 27 mmol/L (22-29); Chloride 102 mmol/L (96-108); Cholesterol 136 mg/dL (<200); Estimated Glomerular Filt Rate > 60; Glucose Fasting 156 mg/dL (60-99); HDL Cholesterol 45 mg/dL (>40); LDL Cholesterol Calculated 74 mg/dL (<100); Sodium 139 mmol/L (135-145); Total Protein 7.8 g/dL (6.5-8.0); Triglycerides 87 mg/dL (<150)
[2023-06-22 15:40] LABS: Vitamin B12 419 pg/mL (200-900)
[2023-06-22 15:43] LABS: TSH reflex Free T4 1.35 uIU/mL (0.32-4.0)
== END 2023-06-22 08:59 | disposition home or self-care (01) ==
LOC: HO.CHCLDS 08:58
PROVIDERS: Visit Provider Pediatrics
DX: E11.51 Type 2 diabetes mellitus with diabetic peripheral angiopathy without gangrene (principal); I70.209 Unspecified atherosclerosis of native arteries of extremities, unspecified extremity; G30.1 Alzheimer's disease with late onset; F02.A3 Dementia in other diseases classified elsewhere, mild, with mood disturbance; E78.2 Mixed hyperlipidemia
CPT/HCPCS: 36415; 80048; 80061; 80076; 82306; 82550; 82607; 83036; 84443; 85025

== ENCOUNTER 2023-07-03 11:07 | Outpatient (REF) | payer MEDICARE, MEDICAID, SELFPAY ==
--- NOTE | ~2023-07-03 | XR_ITS ---
EXAMINATION: XR CHEST CLINICAL INFORMATION: Cough Diffuse wheezing COMPARISON: Portable chest 01/16/2023 TECHNIQUE: 2 views of the chest were obtained. FINDINGS: The lungs are well expanded and clear. No focal consolidation, interstitial pulmonary edema or pneumothorax. Mild peribronchial thickening is noted. There is mild enlargement of the cardiac silhouette. There are no pleural effusions.. Mild anterior wedge compression of a midthoracic vertebral body is noted. XR/XR chest 2V IMPRESSION: Mild cardiomegaly. No acute cardiopulmonary disease.
== END 2023-07-03 11:08 | disposition home or self-care (01) ==
LOC: HO.HHCX 11:07
PROVIDERS: Visit Provider Emergency Medicine
DX: R05.9 Cough, unspecified (principal); J98.01 Acute bronchospasm
CPT/HCPCS: 71046

== ENCOUNTER 2023-07-24 10:00 | Outpatient (RCR) | payer OTHER, MEDICARE, MEDICAID, SELFPAY | END 2023-11-05 10:53 | disposition home or self-care (01) | LOC: HO.PT 10:00 | PROVIDERS: PCP Pediatrics; Visit Provider Pediatrics | DX: M25.511 Pain in right shoulder (principal) | CPT/HCPCS: 97110; 97140; 97162 ==

== ENCOUNTER 2023-07-26 09:05 | Outpatient (REF) | payer MEDICARE, MEDICAID, SELFPAY ==
--- NOTE | ~2023-07-26 | US_ITS ---
EXAMINATION: NONINVASIVE ASSESSMENT OF THE ARTERIES OF THE RIGHT LOWER EXTREMITIES WITH PVR EXAM AND RIGHT LOWER EXTREMITY DUPLEX Tawnya Sanchez MD CLINICAL INFORMATION: Peripheral vascular disease TECHNIQUE: Ankle pulse volume recordings, ankle pressure measurements and ankle brachial indices were obtained of the right lower extremity arterial system bilaterally in addition to duplex Doppler techniques with wave form analysis and measurement of velocities in the common femoral, profunda femoral, superficial femoral, popliteal and tibial arteries. The study was performed only at rest. COMPARISON: None FINDINGS: Diffuse atherosclerotic disease throughout the right lower extremity. a) AT REST: RIGHT LE. The right ankle-brachial index is: 1.79 * >0.97-1.25 = normal - no significant arterial disease * 0.75-0.96 = mild peripheral arterial disease * 0.5-0.74 = moderate peripheral arterial disease * <0.50 = severe peripheral arterial disease 2. Right ankle pressure: Abnormal 3. Right ankle PVR waveform: Abnormal 4. Right direct duplex Doppler findings: Common femoral artery: 136 cm/s, Multiphasic Profunda femoris artery: 94 cm/s, Multiphasic Superficial femoral artery (proximal): 116 cm/s, Multiphasic Superficial femoral artery (mid): 86 cm/s, Multiphasic Superficial femoral artery (distal): 116 cm/s, Multiphasic Proximal Popliteal artery: 74 cm/s, Multiphasic Mid posterior tibial artery: 37 cm/s, Multiphasic Peroneal artery: 22 cm/s, Multiphasic US/US arterial duplex LE RT IMPRESSION: No hemodynamically significant stenoses in the right lower extremity by duplex ultrasound, significantly elevated BUBBA secondary to atherosclerotic disease..
--- NOTE | ~2023-07-26 | US_ITS ---
EXAMINATION: NONINVASIVE ASSESSMENT OF THE ARTERIES OF THE RIGHT LOWER EXTREMITIES WITH PVR EXAM AND RIGHT LOWER EXTREMITY DUPLEX Tawnya Sanchez MD CLINICAL INFORMATION: Peripheral vascular disease TECHNIQUE: Ankle pulse volume recordings, ankle pressure measurements and ankle brachial indices were obtained of the right lower extremity arterial system bilaterally in addition to duplex Doppler techniques with wave form analysis and measurement of velocities in the common femoral, profunda femoral, superficial femoral, popliteal and tibial arteries. The study was performed only at rest. COMPARISON: None FINDINGS: Diffuse atherosclerotic disease throughout the right lower extremity. a) AT REST: RIGHT LE. The right ankle-brachial index is: 1.79 * >0.97-1.25 = normal - no significant arterial disease * 0.75-0.96 = mild peripheral arterial disease * 0.5-0.74 = moderate peripheral arterial disease * <0.50 = severe peripheral arterial disease 2. Right ankle pressure: Abnormal 3. Right ankle PVR waveform: Abnormal 4. Right direct duplex Doppler findings: Common femoral artery: 136 cm/s, Multiphasic Profunda femoris artery: 94 cm/s, Multiphasic Superficial femoral artery (proximal): 116 cm/s, Multiphasic Superficial femoral artery (mid): 86 cm/s, Multiphasic Superficial femoral artery (distal): 116 cm/s, Multiphasic Proximal Popliteal artery: 74 cm/s, Multiphasic Mid posterior tibial artery: 37 cm/s, Multiphasic Peroneal artery: 22 cm/s, Multiphasic US/US BUBBA complete IMPRESSION: No hemodynamically significant stenoses in the right lower extremity by duplex ultrasound, significantly elevated BUBBA secondary to atherosclerotic disease..
== END 2023-07-26 09:06 | disposition home or self-care (01) ==
LOC: HO.US 09:05
PROVIDERS: Visit Provider Surgery Vascular Surgery
DX: I73.9 Peripheral vascular disease, unspecified (principal)
CPT/HCPCS: 93923; 93926

== ENCOUNTER 2023-08-23 10:30 | Outpatient (AMB) | payer MEDICARE, MEDICAID, SELFPAY ==
[2023-08-23 10:33] VITALS: BP 114/66; PULSE 78; O2SAT 97; BMI 24.0
--- NOTE | 2023-08-23 10:33 | MHC.OFFVIS ---
Intake Vital Signs 08/23/23 10:33 Height 5 ft 4 in Weight 140 lb BMI 24.0 BP 114/66 Blood Pressure Location Rt brachial Position Sitting Pulse 78 Pulse Source Pulse Oximeter Pulse Oximetry (%) 97 Oxygen Delivery Method Room Air Intake Visit Reasons: Needs arterial US followup Intake Note: Pt presents to the office today for arterial ultrasouond. Pt states her right foot is red and swollen and hurts sometimes. Pt denies any numbness or tingling. Accompanied by: Grand Child Allergies No Known Allergies Allergy (Verified 08/23/23 10:36) HPI Needs arterial US followup HPI Details Very pleasant 83-year-old female presents for follow-up regarding right lower extremity. She actually had a left AKA done in [place] November of 2022. She has been in a wheelchair for the most part. She has received prosthetic but is starting physical therapy regarding that. She now presents for routine surveillance follow-up of the right lower extremity. 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) Social History (Updated 08/23/23 @ 10:37 by Andra Marcos MA) Household Members: Family Housing: Apartment Alcohol intake: never Patient Tobacco Use Status: Never used Tobacco Review of Systems Const All systems reviewed & are unremarkable except as noted in HPI and below Reports no additional complaints ENT Reports Normal hearing present Card Denies chest pain, Denies chest pain at rest, Denies chest pain with activity and Denies pedal edema Resp Denies cough GI Denies abdominal pain Musc Denies abnormal gait, Denies muscle cramps and Denies radiating pain into limb Skin/Breast Denies skin ulcer and Denies wounds Neuro Reports Normal hearing present and Denies abnormal gait Psych Reports no additional complaints Physical Exam Vital Signs: Last Vital Signs Pulse 78 08/23/23 10:33 BP 114/66 08/23/23 10:33 Pulse Ox 97 08/23/23 10:33 Oxygen Delivery Method Room Air 08/23/23 10:33 BMI result Body Mass Index 24.0 Const General: cooperative, healthy appearing and comfortable Orientation/consciousness: oriented to person, oriented to place and oriented to time HEENT Head: Yes normal to inspection Neck Neck: Yes normal visual inspection Carotids: no bruits Chest Chest palpation & inspection: normal inspection of the chest Resp Effort & Inspection: normal respiratory effort and able to speak in complete sentences Auscultation: clear to auscultation bilaterally, no crackles, no rales, no rhonchi and no wheezes Cardio Rate: regular rate Rhythm: regular rhythm Heart sounds: S1 normal heart sound present and S2 normal heart sound present Bruits: no carotid bruits Peripheral pulses: Peripheral pulses 2+ throughout GI Inspection: Yes normal to inspection Skin Other: Left amp healed Right side no significant ulcer Wounds: no wounds and amputation site Hair: normal Neuro General: oriented to person, oriented to place and oriented to time Cranial nerves: Yes CN's II-XII intact bilaterally and Yes Normal hearing present Cognition (Neuro): normal cognition Motor exam (neuro): 5/5 motor strength present throughout Extrem Other: venous exam: No significant superficial varicosities or spider telangiectasias, minimal edema General: No clubbing, No cyanosis and No edema Psych Appearance: grossly normal Mental Status: mental status grossly normal Speech and movement: Normal speech and movement present Results Reviewed Results Reviewed: Noninvasive testing dated 07/26/2023 demonstrates BUBBA on the right of 1.79. Multi phasic flow all the way down. Written report and images were reviewed. Assessment & Plan Assessment & Plan (1) PAD (peripheral artery disease): Comment: 12/21/2022 - left AKA done in [place] Code(s): I73.9 - Peripheral vascular disease, unspecified Plan: In short patient has stable right lower extremity. I did review the pathophysiology of peripheral vascular disease with the patient. In addition we did discuss routine conservative measures including a healthy diet and the importance of exercise and ambulation. We did discuss risk factor modification. The patient will continue to to follow-up with surveillance follow-up in approximately 1 year. Thank you for allowing us to participate in this patient's care. If there are any questions or concerns please do not hesitate to contact us. Orders: Orders US arterial duplex LE RT 364 Days I73.9 - Peripheral vascular disease, unspecified Coding Level of Care Code Est Pt Level 4 (44813) Diagnoses PAD (peripheral artery disease) I73.9
== END 2023-08-23 10:54 | disposition home or self-care (01) ==
PROVIDERS: PCP Pediatrics; Visit Provider Surgery Vascular Surgery
DX: I73.9 Peripheral vascular disease, unspecified (principal)
CPT/HCPCS: 99213

== ENCOUNTER → 2023-08-23 10:30 | Outpatient (BNVA) | payer MEDICARE, MEDICAID, SELFPAY | PROVIDERS: PCP Pediatrics; Visit Provider Surgery Vascular Surgery | DX: I73.9 Peripheral vascular disease, unspecified (principal) | CPT/HCPCS: 99212 ==

== ENCOUNTER 2023-10-14 13:35 | Inpatient (IN) | payer MEDICARE, MEDICAID, SELFPAY ==
[2023-10-14] VITALS (13 sets, daily range): BP systolic 80–146; BP diastolic 46–117; PULSE 92–165; RESP 16–26; TEMP 36.8–39.1; O2SAT 90–99; BMI 24.8
--- NOTE | ~2023-10-14 | XR_ITS ---
EXAMINATION: XR CHEST CLINICAL INFORMATION: Generally weak COMPARISON: 07/03/2023 TECHNIQUE: Frontal view of the chest was obtained. FINDINGS: Lung volumes are symmetric. No focal consolidation is seen. No evidence of pneumothorax, pleural effusion, or overt pulmonary edema. The cardiomediastinal contour is unremarkable. No acute osseous findings are seen. XR/XR chest 1V IMPRESSION: No acute cardiopulmonary findings.
--- NOTE | 2023-10-14 14:10 | ED.GENADULT ---
HPI - General Adult General Chief complaint: Weakness Stated complaint: Fever, vomiting Time Seen by Provider: 10/14/23 14:47 Related Data Home Medications Medication Instructions Recorded Confirmed gabapentin 400 mg capsule 400 mg PO BEDTIME 01/16/23 01/16/23 Previous Rx's Medication Instructions Recorded amiodarone 200 mg tablet 200 mg PO BID #60 tabs 01/08/23 atorvastatin 20 mg tablet 20 mg PO DAILY #30 tabs 01/08/23 digoxin 125 mcg (0.125 mg) tablet 125 mcg PO DAILY #30 tabs 01/08/23 donepezil 5 mg tablet 5 mg PO DAILY #30 tabs 01/08/23 glipizide 10 mg tablet, extended 10 mg PO DAILY #30 tabs 01/08/23 release 24 hr metoprolol tartrate 50 mg tablet 50 mg PO BID #60 tabs 01/08/23 pantoprazole 40 mg tablet,delayed 40 mg PO DAILY #30 tabs 01/08/23 release rivaroxaban 20 mg tablet (Xarelto) 20 mg PO DAILY #30 tabs 01/08/23 sitagliptin phosphate 100 mg 100 mg PO DAILY #30 tabs 01/08/23 tablet (Januvia) valsartan 160 mg tablet 160 mg PO DAILY #30 tabs 01/08/23 Allergies Allergy/AdvReac Type Severity Reaction Status Date / Time No Known Allergies Allergy Verified 08/23/23 10:36 [facility] Past Medical History Surgical History 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) Social History Social History Household Members: Family Housing: Apartment Alcohol intake: never Patient Tobacco Use Status: Never used Tobacco Smoked in Last 30 Days: No Advance Directives: No Advance Directives Information Provided: No Physical Exam ED Vital Signs: Vital Signs - 24 hr 10/14/23 14:09 10/14/23 15:09 10/14/23 15:33 Temperature 101.3 F H Pulse Rate 165 H 95 105 H Respiratory Rate 16 24 H 24 H Blood Pressure 141/83 H 104/76 80/55 L Pulse Oximetry 94 99 Oxygen Delivery Method Room Air Nasal Cannula Oxygen Flow Rate 2.5 10/14/23 16:03 Temperature Pulse Rate 106 H Respiratory Rate 20 Blood Pressure 102/50 L Pulse Oximetry 98 Oxygen Delivery Method Nasal Cannula Oxygen Flow Rate 2.5 BMI result Body Mass Index 24.8 Course Course Course Narrative: RME:?83 yo female presents feeling generally unwell. Granddaughter states patient has felt hot, has been confused, N/V, generally weak with decreased appetite over the last few days. sick contacts at home. no documented fever. labs, ekg, cxr, viral swabs ordered. Full HPI, ROS and PE to be performed by the primary ED provider. Medications Administered Discontinued Medications Generic Name Dose Route Start Last Admin Trade Name Freq PRN Reason Stop Dose Admin Acetaminophen 650 mg 10/14/23 14:13 10/14/23 14:59 Acetaminophen 325 Mg Tablet PO 10/14/23 14:14 650 mg ONCE ONE Administration Diltiazem HCl 15 mg 10/14/23 14:49 10/14/23 14:59 Diltiazem Hcl 50 Mg/10 Ml Vial IVPUSH 10/14/23 14:50 15 mg STAT STA Administration Piperacillin Sod/Tazobactam 100 mls @ 200 mls/hr 10/14/23 15:16 10/14/23 15:31 Sod 4.5 gm/ Sodium Chloride IV 10/14/23 15:45 200 mls/hr ONCE ONE Administration Ondansetron HCl 4 mg 10/14/23 14:50 10/14/23 14:59 Ondansetron Hcl 4 Mg/2 Ml Vial IVPUSH 10/14/23 14:51 4 mg ONCE ONE Administration Medical Decision Making Lab Data 10/14/23 14:50 Labs: Lab Results 10/14/23 10/14/23 10/14/23 Range/Units 14:50 14:51 14:52 WBC 8.0 (4.8-10.8) X10*3/uL RBC 4.55 (4.20-5.50) X10*6/uL Hgb 12.5 (12.0-16.0) g/dl Hct 38.3 (37.0-47.0) % MCV 84.2 (80.0-98.0) fL MCH 27.5 (27.0-33.0) pg MCHC 32.6 (31.0-35.0) g/dl RDW 13.8 (11.0-16.0) % Plt Count 245 D (160-400) X10*3/uL MPV 9.3 L (9.4-12.3) fL Immature Gran % (Auto) 0.4 (0.0-0.4) % Neut % (Auto) 83.4 H (45-73) % Lymph % (Auto) 6.7 L (20-40) % [place] % (Auto) 9.2 (2-11) % Eos % (Auto) 0.1 (0-4) % Baso % (Auto) 0.2 (0-2) % Lymph # (Auto) 0.5 L (1.2-4.9) X10*3/uL [place] # (Auto) 0.7 (0.1-1.2) X10*3/uL Eos # (Auto) 0.0 (0.0-0.4) X10*3/uL Baso # (Auto) 0.0 (0.0-0.2) X10*3/uL Abs Immat Gran (auto) 0.03 (0.00-0.03) X10*3/uL Absolute Neuts (auto) 6.7 (2.0-8.3) x10*3/uL Absolute Nucleated RBC 0.000 (0.0-0.012) X10*3/uL Nucleated RBC % (auto) 0.0 (0.0-0.2) /100WBC VBG pH 7.51 H (7.32-7.43) VBG pCO2 31 mmHg VBG pO2 68 mmHg VBG HCO3 25 (22-26) mmol/L VBG O2 Saturation 96.0 % VBG Base Excess 2.8 mmol/L Lactic Acid 2.6 H* (0.5-2.0) mmol/L Ammonia (13-55) umol/L Troponin I High Sens 11.4 D (<3.5-17.0) ng/L B-Natriuretic Peptide 746 H (<100) pg/mL 10/14/23 Range/Units 15:20 WBC (4.8-10.8) X10*3/uL RBC (4.20-5.50) X10*6/uL Hgb (12.0-16.0) g/dl Hct (37.0-47.0) % MCV (80.0-98.0) fL MCH (27.0-33.0) pg MCHC (31.0-35.0) g/dl RDW (11.0-16.0) % Plt Count (160-400) X10*3/uL MPV (9.4-12.3) fL Immature Gran % (Auto) (0.0-0.4) % Neut % (Auto) (45-73) % Lymph % (Auto) (20-40) % [place] % (Auto) (2-11) % Eos % (Auto) (0-4) % Baso % (Auto) (0-2) % Lymph # (Auto) (1.2-4.9) X10*3/uL [place] # (Auto) (0.1-1.2) X10*3/uL Eos # (Auto) (0.0-0.4) X10*3/uL Baso # (Auto) (0.0-0.2) X10*3/uL Abs Immat Gran (auto) (0.00-0.03) X10*3/uL Absolute Neuts (auto) (2.0-8.3) x10*3/uL Absolute Nucleated RBC (0.0-0.012) X10*3/uL Nucleated RBC % (auto) (0.0-0.2) /100WBC VBG pH (7.32-7.43) VBG pCO2 mmHg VBG pO2 mmHg VBG HCO3 (22-26) mmol/L VBG O2 Saturation % VBG Base Excess mmol/L Lactic Acid (0.5-2.0) mmol/L Ammonia 23 (13-55) umol/L Troponin I High Sens (<3.5-17.0) ng/L B-Natriuretic Peptide (<100) pg/mL Discharge Plan Discharge Clinical Impression: Atrial fibrillation with rapid ventricular response, Acute UTI Fever Qualifiers: Fever type: unspecified Qualified Code(s): R50.9 - Fever, unspecified Patient Disposition: Admitted As Inpatient
--- NOTE | 2023-10-14 14:15 | ECG_ITS ---
Test Reason : WEAK Blood Pressure : / mmHG Vent. Rate : 165 BPM Atrial Rate : 000 BPM P-R Int : 000 ms QRS Dur : 086 ms QT Int : 246 ms P-R-T Axes : 000 000 206 degrees QTc Int : 407 ms Atrial fibrillation with rapid ventricular response Septal infarct , age undetermined Abnormal ECG When compared with ECG of 16-JAN-2023 12:19, Vent. rate has increased BY 126 BPM Septal infarct is now Present ST no longer depressed in Anterior leads T wave inversion no longer evident in Inferior leads T wave inversion less evident in Anterolateral leads Referred By: Ramila Perkins Electronically Signed By:DASIA CLAYTON MD
--- NOTE | 2023-10-14 14:50 | ED_ITS ---
HPI - Weakness General Chief complaint: Weakness Stated complaint: Fever, vomiting Time Seen by Provider: 10/14/23 14:47 Source: patient and family (grandauther) Mode of arrival: ambulatory History of Present Illness HPI Narrative: This is 83 years old female with a history of high blood pressure, diabetes, atrial fibrillation anticoagulated. Presented to the emergency department with the granddaughter with a chief complaint of fever vomiting generalized malaise. She was found to be in rapid AFib at arrival Complaint: generalized weakness Onset (ago): day(s) (1) Duration: constant Location: generalized Migration: none Severity: mild Relieving factors: none Associated symptoms: confusion Related Data Home Medications Medication Instructions Recorded Confirmed gabapentin 400 mg capsule 400 mg PO BEDTIME 01/16/23 01/16/23 Previous Rx's Medication Instructions Recorded amiodarone 200 mg tablet 200 mg PO BID #60 tabs 01/08/23 atorvastatin 20 mg tablet 20 mg PO DAILY #30 tabs 01/08/23 digoxin 125 mcg (0.125 mg) tablet 125 mcg PO DAILY #30 tabs 01/08/23 donepezil 5 mg tablet 5 mg PO DAILY #30 tabs 01/08/23 glipizide 10 mg tablet, extended 10 mg PO DAILY #30 tabs 01/08/23 release 24 hr metoprolol tartrate 50 mg tablet 50 mg PO BID #60 tabs 01/08/23 pantoprazole 40 mg tablet,delayed 40 mg PO DAILY #30 tabs 01/08/23 release rivaroxaban 20 mg tablet (Xarelto) 20 mg PO DAILY #30 tabs 01/08/23 sitagliptin phosphate 100 mg 100 mg PO DAILY #30 tabs 01/08/23 tablet (Januvia) valsartan 160 mg tablet 160 mg PO DAILY #30 tabs 01/08/23 Allergies Allergy/AdvReac Type Severity Reaction Status Date / Time No Known Allergies Allergy Verified 08/23/23 10:36 Review of Systems 2 Constitutional: Constitutional: Reports body ache(s), Reports fever(s), Reports malaise and Reports weakness Respiratory: Respiratory: Reports no additional respiratory complaints Neurologic: Reports weakness [facility] Past Medical History Attestation statement: The following information was validated with the patient. [facility] Narrative: Atrial fibrillation, diabetes, hypertension Surgical History 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) Social History Social History Household Members: Family Housing: Apartment Alcohol intake: never Patient Tobacco Use Status: Never used Tobacco Advance Directives: No Advance Directives Information Provided: No Physical Exam 2 Vital Signs: Vital Signs: Last Vital Signs Temp 101.3 F H 10/14/23 14:09 Pulse 105 H 10/14/23 15:33 Resp 24 H 10/14/23 15:33 BP 80/55 L 10/14/23 15:33 Pulse Ox 99 10/14/23 15:33 O2 Del Method Nasal Cannula 10/14/23 15:33 O2 Flow Rate 2.5 10/14/23 15:33 BMI result Body Mass Index 24.8 Const: General: no acute distress Nutritional Appearance: obese L imitations: no limitations HEENT: Head: Yes normal to inspection Ears: hearing grossly normal bilaterally General nose exam: Normal external nose present Face and sinus: Yes normal facial exam Mouth: Normal oral and palatal mucosa present Throat: Yes posterior oropharynx normal Neck: Neck: Yes normal visual inspection Resp: Effort & Inspection: normal respiratory effort Auscultation: rhonchi Cardio: Jugular venous distension: no JVD Rate: tachycardic Rhythm: a bnormal rhythm GI: Inspection: Yes normal to inspection Palpation (GI): Soft to palpation, not firm and nontender Skin: General skin exam: no rashes or lesions noted and elasticity normal R ashes: no rashes Extrem: General: Yes normal to inspection and Yes full ROM Course Reevaluation(s) Reevaluation #1: PATIENT WAS RE-EXAMINED SHE IS FEELING CLINICALLY BETTER BLOOD PRESSURE IS A LITTLE LOW NOW BUT SHE RECEIVED THE IV CARDIZEM I CANNULATED THE LEFT BASILIC WITH A 20 GAUGE LONG CATHETER WILL GIVE A BOLUS OF FLUIDS REASSESS Time: 15:59 Medications Administered Discontinued Medications Generic Name Dose Route Start Last Admin Trade Name Freq PRN Reason Stop Dose Admin Acetaminophen 650 mg 10/14/23 14:13 10/14/23 14:59 Acetaminophen 325 Mg Tablet PO 10/14/23 14:14 650 mg ONCE ONE Administration Diltiazem HCl 15 mg 10/14/23 14:49 10/14/23 14:59 Diltiazem Hcl 50 Mg/10 Ml Vial IVPUSH 10/14/23 14:50 15 mg STAT STA Administration Piperacillin Sod/Tazobactam 100 mls @ 200 mls/hr 10/14/23 15:16 10/14/23 15:31 Sod 4.5 gm/ Sodium Chloride IV 10/14/23 15:45 200 mls/hr ONCE ONE Administration Ondansetron HCl 4 mg 10/14/23 14:50 10/14/23 14:59 Ondansetron Hcl 4 Mg/2 Ml Vial IVPUSH 10/14/23 14:51 4 mg ONCE ONE Administration Medical Decision Making Medical Decision Making [facility] Narrative: Patient presented to the emergency department with a chief complaint of fever found to be in rapid atrial fibrillation will check labs start Cardizem Differential Diagnosis Differential Diagnoses: The differential diagnosis associated with the presentation includes Differential diagnoses rapid AFib/influenza/COVID/ACS Admission/Observation Consideration of admission/observation: Escalation of care including admission/observation considered Lab Data 10/14/23 14:50 Labs: Lab Results 10/14/23 10/14/23 10/14/23 Range/Units 14:50 14:51 14:52 WBC 8.0 (4.8-10.8) X10*3/uL RBC 4.55 (4.20-5.50) X10*6/uL Hgb 12.5 (12.0-16.0) g/dl Hct 38.3 (37.0-47.0) % MCV 84.2 (80.0-98.0) fL MCH 27.5 (27.0-33.0) pg MCHC 32.6 (31.0-35.0) g/dl RDW 13.8 (11.0-16.0) % Plt Count 245 D (160-400) X10*3/uL MPV 9.3 L (9.4-12.3) fL Immature Gran % (Auto) 0.4 (0.0-0.4) % Neut % (Auto) 83.4 H (45-73) % Lymph % (Auto) 6.7 L (20-40) % [place] % (Auto) 9.2 (2-11) % Eos % (Auto) 0.1 (0-4) % Baso % (Auto) 0.2 (0-2) % Lymph # (Auto) 0.5 L (1.2-4.9) X10*3/uL [place] # (Auto) 0.7 (0.1-1.2) X10*3/uL Eos # (Auto) 0.0 (0.0-0.4) X10*3/uL Baso # (Auto) 0.0 (0.0-0.2) X10*3/uL Abs Immat Gran (auto) 0.03 (0.00-0.03) X10*3/uL Absolute Neuts (auto) 6.7 (2.0-8.3) x10*3/uL Absolute Nucleated RBC 0.000 (0.0-0.012) X10*3/uL Nucleated RBC % (auto) 0.0 (0.0-0.2) /100WBC VBG pH 7.51 H (7.32-7.43) VBG pCO2 31 mmHg VBG pO2 68 mmHg VBG HCO3 25 (22-26) mmol/L VBG O2 Saturation 96.0 % VBG Base Excess 2.8 mmol/L Lactic Acid 2.6 H* (0.5-2.0) mmol/L Ammonia (13-55) umol/L Troponin I High Sens 11.4 D (<3.5-17.0) ng/L B-Natriuretic Peptide 746 H (<100) pg/mL 10/14/23 Range/Units 15:20 WBC (4.8-10.8) X10*3/uL RBC (4.20-5.50) X10*6/uL Hgb (12.0-16.0) g/dl Hct (37.0-47.0) % MCV (80.0-98.0) fL MCH (27.0-33.0) pg MCHC (31.0-35.0) g/dl RDW (11.0-16.0) % Plt Count (160-400) X10*3/uL MPV (9.4-12.3) fL Immature Gran % (Auto) (0.0-0.4) % Neut % (Auto) (45-73) % Lymph % (Auto) (20-40) % [place] % (Auto) (2-11) % Eos % (Auto) (0-4) % Baso % (Auto) (0-2) % Lymph # (Auto) (1.2-4.9) X10*3/uL [place] # (Auto) (0.1-1.2) X10*3/uL Eos # (Auto) (0.0-0.4) X10*3/uL Baso # (Auto) (0.0-0.2) X10*3/uL Abs Immat Gran (auto) (0.00-0.03) X10*3/uL Absolute Neuts (auto) (2.0-8.3) x10*3/uL Absolute Nucleated RBC (0.0-0.012) X10*3/uL Nucleated RBC % (auto) (0.0-0.2) /100WBC VBG pH (7.32-7.43) VBG pCO2 mmHg VBG pO2 mmHg VBG HCO3 (22-26) mmol/L VBG O2 Saturation % VBG Base Excess mmol/L Lactic Acid (0.5-2.0) mmol/L Ammonia 23 (13-55) umol/L Troponin I High Sens (<3.5-17.0) ng/L B-Natriuretic Peptide (<100) pg/mL Independent Interpretation I performed an independent interpretation of an: EKG Interpretation: Rapid atrial fibrillation with a rate of 150 Procedures EJ/Peripheral Line Arm L: Time Out Performed: Yes Skin Cleansed in Sterile Fashion: Yes Size (gauge): 20 IV Secured and Dressing Applied: Yes Patient Tolerated Procedure: well (UNDER US CANNULATED LEFT BASILIC VEIN WITH 20 RUBENS CATHETER) Discharge Plan Discharge Clinical Impression: Atrial fibrillation with rapid ventricular response, Acute UTI Fever Qualifiers: Fever type: unspecified Qualified Code(s): R50.9 - Fever, unspecified Patient Disposition: Admitted As Inpatient
[2023-10-14 14:54] LABS: MANUAL DIFF FLAG NO
[2023-10-14 14:57] LABS: Venous Blood Gas Refer to POC result
[2023-10-14 14:58] LABS: VBG Base Excess 2.8 mmol/L; VBG HCO3 25 mmol/L (22-26); VBG pCO2 31 mmHg; VBG pH 7.51 (7.32-7.43); VBG pO2 68 mmHg
[2023-10-14 14:59] LABS: Basophils Percent Auto 0.2 % (0-2); Eosinophils Percent Auto 0.1 % (0-4); Hematocrit 38.3 % (37.0-47.0); Hemoglobin 12.5 g/dl (12.0-16.0); Imm Gran Abs Auto 0.03 X10*3/uL (0.00-0.03); Imm Gran Pct Auto 0.4 % (0.0-0.4); Lymphocytes Absolute Auto 0.5 X10*3/uL (1.2-4.9); Lymphocytes Percent Auto 6.7 % (20-40); Mean Corpuscular HGB Conc 32.6 g/dl (31.0-35.0); Mean Corpuscular Hemoglobin 27.5 pg (27.0-33.0); Mean Corpuscular Volume 84.2 fL (80.0-98.0); Mean Platelet Volume 9.3 fL (9.4-12.3); Monocytes Absolute Auto 0.7 X10*3/uL (0.1-1.2); Monocytes Percent Auto 9.2 % (2-11); Neutrophils Absolute Auto 6.7 x10*3/uL (2.0-8.3); Neutrophils Percent Auto 83.4 % (45-73); Platelet Count 245 X10*3/uL (160-400); Red Blood Count 4.55 X10*6/uL (4.20-5.50); Red Cell Distribution Width 13.8 % (11.0-16.0)
[2023-10-14] MEDS: ondansetron HCL 4 MG/2 ML VIAL IVPUSH (14:59)
[2023-10-14] MEDS: dilTIAZem HCL 50 MG/10 ML VIAL 15 MG IVPUSH (14:59)
[2023-10-14] MEDS: Acetaminophen 325 MG TABLET 650 MG PO ×2 (14:59→22:43)
--- NOTE | 2023-10-14 15:14 | PC.NURSE ---
HR CORRECTED TO LOW 100S FOLLOWING CARDIZEM PUSH, BP SLIGHTLY SOFT. PER MD HOLD DILT GTT FOR NOW.
[2023-10-14 15:17] LABS: Lactic Acid 2.6 mmol/L (0.5-2.0)
[2023-10-14 15:17] LABS: B Type Natriuretic Peptide 746 pg/mL (<100)
[2023-10-14 15:18] LABS: Troponin-I High Sensitivity 11.4 ng/L (<3.5-17.0)
[2023-10-14] MEDS: Piperacillin Sodium/Tazobactam 4.5 GM in 0.9 % Sodium Chloride 100 ML IV (15:31)
--- NOTE | 2023-10-14 15:36 | PC.NURSE ---
Patient more alert on stretcher, afib HR 90's - low 100's pressures soft 80's/50's MAP continue to be WNL, provider aware. IV ABX infusing presently.
[2023-10-14 15:39] LABS: Ammonia 23 umol/L (13-55)
[2023-10-14] MEDS: 0.9 % Sodium Chloride 1,000 ML 999 ML IV (15:45)
[2023-10-14] MEDS: 0.9 % Sodium Chloride 1,000 ML 999 ML IVCONT (16:00)
[2023-10-14 16:16] LABS: Influenza A PCR POSITIVE (Negative); Influenza B PCR NEGATIVE (Negative); Resp Syncy Virus RNA Qual PCR NEGATIVE (Negative); SARS COV2 PCR INHOUSE NEGATIVE (Negative)
[2023-10-14 16:53] LABS: Reflex Lactate? Lactic Acid Added
[2023-10-14] MEDS: Oseltamivir Phosphate 75 MG CAPSULE PO (17:34)
--- NOTE | 2023-10-14 18:01 | PM.IMHP ---
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 Pt's granddaughter and PCP is at bedside and helps supplement HPI. [employer] utilized. Granddaughter states she arrived earlier this morning at pt's house to check on her and found her confused, barely able to speak, and complaining of nausea, vomiting, and abdominal pain. Patient also had nonproductive cough, fever, headache, and chest pain. Denies palpitations or racing heart. Granddaughter then brought patient to the ED for further evaluation. On the way patient had more episodes of vomiting. Granddaughter reports patient no longer confused, currently back to baseline mentation. Patient denies polyuria or dysuria. Reports has been compliant with home medications, though did not take her meds earlier today. In the ED pt was febrile up to 101.3, tachycardic up to 165, and tachypneic up to 24, with BP as low as 80/55. Labs were significant for patient testing positive for influenza type a, lactic acid 2.6 with follow-up 1.9, magnesium 1.2, and elevated BNP of 746. No leukocytosis. Stable H&H. Renal function baseline. CXR showed no acute cardiopulmonary findings. Initial EKG demonstrated AFib with RVR of 165 and repeat with AFib with RVR of 141, with ST and T-wave abnormalities in anterior lateral leads. Pt was treated with acetaminophen, diltiazem 50 mg IV, ondansetron, Zosyn, IVF, Tamiflu, and started on a diltiazem drip. Pt will be admitted to the hospital for treatment and further evaluation of AFib with RVR in the setting of influenza infection the viral sepsis. 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) Social History Household Members: Family Housing: Apartment Alcohol intake: never Patient Tobacco Use Status: Never used Tobacco Smoked in Last 30 Days: No Advance Directives: No Advance Directives Information Provided: No Meds Allergies Allergy/AdvReac Type Severity Reaction Status Date / Time No Known Allergies Allergy Verified 08/23/23 10:36 Active Medications: Current Medications Diltiazem HCl 125 mg/ Sodium (Chloride) 125 mls @ 0 mls/hr IVCONT .Q0M SAMPSON; Protocol Home Medications Medication Instructions Recorded Confirmed Last Taken Type gabapentin 400 mg capsule 400 mg PO BEDTIME 01/16/23 10/14/23 10/13/23 History ferrous sulfate 325 mg (65 mg 650 mg PO QAM 10/14/23 10/14/23 10/14/23 History iron) tablet (FeroSul) metformin 500 mg tablet 500 mg PO BIDWM 10/14/23 10/14/23 10/14/23 History metoprolol succinate 25 mg 25 mg PO QAM 10/14/23 10/14/23 10/14/23 History tablet,extended release 24 hr Physical Exam Vital Signs and Narrative: Vital Signs: Last Vital Signs Temp 98.4 F 10/14/23 17:13 Pulse 106 H 10/14/23 17:35 Resp 20 10/14/23 17:13 BP 103/50 L 10/14/23 17:35 Pulse Ox 98 10/14/23 17:35 O2 Del Method Nasal Cannula 10/14/23 17:35 O2 Flow Rate 2.5 10/14/23 17:35 BMI result Body Mass Index 24.8 Results Labs 10/14/23 14:50 10/14/23 14:51 Labs: Laboratory Results - last 24 hr 10/14/23 10/14/23 10/14/23 14:50 14:51 14:52 MCV 84.2 MCH 27.5 MCHC 32.6 RDW 13.8 Plt Count 245 D MPV 9.3 L Immature Gran % (Auto) 0.4 Neut % (Auto) 83.4 H Lymph % (Auto) 6.7 L [place] % (Auto) 9.2 Eos % (Auto) 0.1 Baso % (Auto) 0.2 Lymph # (Auto) 0.5 L [place] # (Auto) 0.7 Eos # (Auto) 0.0 Baso # (Auto) 0.0 Abs Immat Gran (auto) 0.03 Absolute Neuts (auto) 6.7 Absolute Nucleated RBC 0.000 Nucleated RBC % (auto) 0.0 Hold Purple Top SEE NOTE VBG pH 7.51 H VBG pCO2 31 VBG pO2 68 VBG HCO3 25 VBG O2 Saturation 96.0 VBG Base Excess 2.8 Lactic Acid 2.6 H* Ammonia Troponin I High Sens 11.4 D B-Natriuretic Peptide 746 H Influenza Type A (PCR) POSITIVE A Influenza Type B (PCR) NEGATIVE RSV RNA Qual (PCR) NEGATIVE SARS-CoV-2 RNA (RT-PCR) NEGATIVE 10/14/23 15:20 MCV MCH MCHC RDW Plt Count MPV Immature Gran % (Auto) Neut % (Auto) Lymph % (Auto) [place] % (Auto) Eos % (Auto) Baso % (Auto) Lymph # (Auto) [place] # (Auto) Eos # (Auto) Baso # (Auto) Abs Immat Gran (auto) Absolute Neuts (auto) Absolute Nucleated RBC Nucleated RBC % (auto) Hold Purple Top VBG pH VBG pCO2 VBG pO2 VBG HCO3 VBG O2 Saturation VBG Base Excess Lactic Acid Ammonia 23 Troponin I High Sens B-Natriuretic Peptide Influenza Type A (PCR) Influenza Type B (PCR) RSV RNA Qual (PCR) SARS-CoV-2 RNA (RT-PCR) Imaging Radiologist's Impressions: Impressions Chest X-Ray 10/14/23 15:43 IMPRESSION: No acute cardiopulmonary findings. 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 Pt will be admitted to the hospital for treatment and further evaluation of AFib with RVR in the setting of influenza infection the viral sepsis. AFib with RVR Pt's HR as high as 165 in the ED Likely secondary to influenza infection, see treatment plan below Pt given diltiazem 15 mg IV and started on diltiazem drip Continue diltiazem drip Continue metoprolol, Xarelto Monitor on telemetry Influenza infection Will treat with Tamiflu, Duonebs, benzonatate Pt not hypoxic, satting at 93-94% on RA Monitor respiratory status Hypomagnesmia Mag 1.2 at time of presentation Will give mag 2g IV Follow mag Lactic acidosis, resolved Lactic acid 2.6 at time of presentation, repeat WNL at 1.9 after IVF in ED Likely secondary to nausea and vomiting, flu infection No indication of bacterial infection No indication for antibiotics at this time Check UA Viral sepsis Fever, tachycardia, and tachypnea all secondary to Influenza infection No cldear source of bacterial infection No indication for antibiotics at this time Treat as above Non-insulin dependent diabetes type [address] on sliding scale insulin Diabetic diet HTN Continue valsartan Full Code Attending:?Dr. Deutsch DVT Prophylaxis: On Xarelto Pt will require a hospitalization of at least two nights for treatment of?AFib with RVR in the setting of influenza infection with viral sepsis. Given pt's age and comorbidities including diabetes, pt is at risk of rapid deconditioning without hospitalization for treatment with diltiazem drip, Tamiflu, and close monitoring of vitals, labs, and cardiac functioing. Quality Stroke Does the patient have a stroke diagnosis?: No VTE Prior VTE?: No VTE Risk Level:: Medical - moderate - high VTE Device Contraindication: Treatment Not Indicated VTE Drug Contraindication: N/A - Med Ordered
[2023-10-14 18:32] LABS: ~Lactic Acid-LAB USE ONLY 1.9 mmol/L (0.5-2.0)
--- NOTE | 2023-10-14 18:37 | PC.NURSE ---
Patient admitted to hospital, currently waiting bed assignment. +FLU, Afib rate controlled 90's - 100's, BPs improving 100's/50's after 2 L.
[2023-10-14 18:38] LABS: Anion Gap 13 (12-20); Blood Urea Nitrogen 11 mg/dL (9-16); Calcium 7.8 mg/dL (8.4-10.2); Carbon Dioxide 26 mmol/L (22-29); Chloride 106 mmol/L (96-108); Creatinine Clr Calc Pharmacy 47.7; Estimated Glomerular Filt Rate > 60; Glucose Random 154 mg/dL (60-115); Magnesium 1.2 mg/dL (1.6-2.6); Potassium 3.8 mmol/L (3.3-5.1); Sodium 141 mmol/L (135-145)
--- NOTE | 2023-10-14 18:47 | PHA.MEDREC ---
Pharmacy Consult ? Medication Reconciliation Pharmacy has completed the medication reconciliation. Spoke to granddaughter Cecilia at bedside and confirmed medication list. She said patient only takes gabapentin 400 mg at bedtime, metformin 500 mg twice a day and not on amiodarone nor digoxin.
[2023-10-14] MEDS: Atorvastatin Calcium 20 MG TABLET PO (19:53)
[2023-10-14] MEDS: Metoprolol Succinate ER 25 MG TAB.ER.24H PO (19:53)
[2023-10-14] MEDS: Donepezil HCl 5 MG TABLET PO (19:53)
[2023-10-14] MEDS: SITagliptin Phosphate 100 MG TABLET PO (19:53)
[2023-10-14] MEDS: Rivaroxaban 20 MG TABLET PO (19:53)
[2023-10-14] MEDS: Ferrous Sulfate 324 MG TABLET.DR 648 MG PO (19:53)
[2023-10-14] MEDS: Magnesium Sulfate/H2O 2 GM/50 ML PIGGYBACK IV (19:54)
--- NOTE | 2023-10-14 20:14 | PC.NURSE ---
Pt medicated per mar. Daughter remains at bedside. Pt requested and assisted to bedside commode. Plan of care ongoing.
--- NOTE | 2023-10-14 20:30 | PC.NURSE ---
Pt assisted back into bed by daughter. Pt reconnected to everything. Pt resting comfortably watching TV. Plan of care ongoing.
[2023-10-14] MEDS: Albuterol/Iprat 2.5/0.5MG 3 ML AMPUL.NEB INHALE (20:33)
[2023-10-14] MEDS: Gabapentin 400 MG CAPSULE PO (21:27)
--- NOTE | 2023-10-14 21:30 | PC.NURSE ---
Pt medicated per Jomarmel remains at bedside. Plan of care ongoing.
[2023-10-14] MEDS: dilTIAZem HCL 125 MG in 0.9 % Sodium Chloride 100 ML 10 MG IVCONT (22:57)
[2023-10-15] VITALS (14 sets, daily range): BP systolic 104–164; BP diastolic 50–74; PULSE 77–135; RESP 18–20; TEMP 36.1–37.5; O2SAT 88–97
--- NOTE | 2023-10-15 00:57 | PC.NURSE ---
pt transferred to unit via stretcher from ED accompanied by granddaughter. Vitals at 2230 elevated temp 102.4 and HR 130-140's. aware with orders to start cardizem gtt 10 mg/hr at this time.
[2023-10-15] MEDS: Benzonatate 100 MG CAPSULE PO (05:43)
[2023-10-15] MEDS: Acetaminophen 325 MG TABLET 650 MG PO (05:43)
[2023-10-15] MEDS: Oseltamivir Phosphate 30 MG CAPSULE PO ×2 (05:43→16:01)
[2023-10-15 06:45] LABS: Anion Gap 11 (12-20); Blood Urea Nitrogen 13 mg/dL (9-16); Calcium 8.2 mg/dL (8.4-10.2); Carbon Dioxide 25 mmol/L (22-29); Chloride 106 mmol/L (96-108); Creatinine Clr Calc Pharmacy 40.8; Estimated Glomerular Filt Rate 55; Glucose Random 156 mg/dL (60-115); Magnesium 1.9 mg/dL (1.6-2.6); Sodium 138 mmol/L (135-145)
[2023-10-15] MEDS: Donepezil HCl 5 MG TABLET PO (07:49)
[2023-10-15] MEDS: Metoprolol Succinate ER 25 MG TAB.ER.24H PO (07:49)
[2023-10-15] MEDS: Valsartan 160 MG TABLET PO (07:49)
[2023-10-15] MEDS: Rivaroxaban 20 MG TABLET PO (07:49)
[2023-10-15] MEDS: SITagliptin Phosphate 100 MG TABLET PO (07:50)
[2023-10-15] MEDS: Atorvastatin Calcium 20 MG TABLET PO (07:50)
[2023-10-15] MEDS: Ferrous Sulfate 324 MG TABLET.DR 648 MG PO (07:50)
[2023-10-15] MEDS: 0.9 % Sodium Chloride Flush 3 ML SYRINGE IVFLUSH ×3 (07:51→16:01)
[2023-10-15] MEDS: Albuterol/Iprat 2.5/0.5MG 3 ML AMPUL.NEB INHALE ×2 (07:56→11:38)
[2023-10-15] MEDS: 0.9 % Sodium Chloride 500 ML 100 ML IV (09:50)
--- NOTE | 2023-10-15 12:54 | P.PNIM_ITS ---
Subjective Subjective Date of Service: 10/15/23 Interval History: History obtained via child caregiver private home patient denies chest pain, no palpitations, no fevers, no chills denies shortness of breath, no nausea, no vomiting no other acute issues overnight. Review of Systems All other system reviewed and negative Physical Exam 2 Vital Signs: Vital Signs: Last Vital Signs Temp 97.7 F 10/15/23 11:13 Pulse 93 10/15/23 11:40 Resp 18 10/15/23 11:40 BP 118/62 10/15/23 11:13 Pulse Ox 93 10/15/23 11:13 O2 Del Method Nasal Cannula 10/15/23 11:13 O2 Flow Rate 2 10/15/23 11:13 BMI result Body Mass Index 24.8 Const: Other: General awake alert, resting comfortably in no acute distress. Anicteric sclera Neck supple no JVD. CVS regular rate rhythm, Respiratory lungs clear to auscultation, no respiratory distress, no wheeze, no rhonchi. Gastrointestinal abdomen soft, non tender, bowel sounds audible, no guarding , no rigidity. Extremities no edema. Left BKA Neuro non focal, moving all 4 extremity speech clear. Skin no rash Objective Data Active Medications Acetaminophen (Acetaminophen 325 Mg Tablet) 650 mg PO Q6H PRN PRN Reason: Pain, Mild (Pain Scale 1-3) Last Admin: 10/15/23 05:43 Dose: 650 mg Documented By: CASSANDRA Atorvastatin Calcium (Atorvastatin Calcium 20 Mg Tablet) 20 mg PO DAILY [facility] Last Admin: 10/15/23 07:50 Dose: 20 mg Documented By: TAD Benzonatate (Benzonatate 100 Mg Capsule) 100 mg PO TID PRN PRN Reason: Cough Last Admin: 10/15/23 05:43 Dose: 100 mg Documented By: CASSANDRA Docusate Sodium (Docusate Sodium 100 Mg Capsule) 100 mg PO DAILY PRN PRN Reason: Constipation Donepezil HCl (Donepezil Hcl 5 Mg Tablet) 5 mg PO DAILY [facility] Last Admin: 10/15/23 07:49 Dose: 5 mg Documented By: TAD Ferrous Sulfate (Ferrous Sulfate 324 Mg Tablet.) 648 mg PO DAILY [facility] Last Admin: 10/15/23 07:50 Dose: 648 mg Documented By: TAD Gabapentin (Gabapentin 400 Mg Capsule) 400 mg PO BEDTIME [facility] Last Admin: 10/14/23 21:27 Dose: 400 mg Documented By: MILAN Diltiazem HCl 125 mg/ Sodium (Chloride) 125 mls @ 0 mls/hr IVCONT .Q0M [facility]; Protocol Last Titration: 10/15/23 02:03 Dose: 0 mg/hr, 0 mls/hr Documented By: CASSANDRA Levalbuterol HCl (Levalbuterol Hcl 1.25 Mg/3 Ml Vial.Neb) 1.25 mg INHALE Q4H PRN PRN Reason: Shortness of Breath/Wheezing Melatonin (Melatonin 3 Mg Tablet) 6 mg PO BEDTIME PRN PRN Reason: Insomnia Metoprolol Succinate (Metoprolol Succinate Er 25 Mg Tab.Er.24h) 25 mg PO DAILY [facility]; Protocol Last Admin: 10/15/23 07:49 Dose: 25 mg Documented By: TAD Ondansetron HCl (Ondansetron Hcl 4 Mg/2 Ml Vial) 4 mg IVPUSH Q8H PRN PRN Reason: Nausea and Vomiting Oseltamivir Phosphate (Oseltamivir Phosphate 30 Mg Capsule) 30 mg PO Q12H [facility] Stop: 10/19/23 04:31 Last Admin: 10/15/23 05:43 Dose: 30 mg Documented By: CASSANDRA Rivaroxaban (Rivaroxaban 20 Mg Tablet) 20 mg PO DAILY [facility] Last Admin: 10/15/23 07:49 Dose: 20 mg Documented By: TAD Sitagliptin Phosphate (Sitagliptin Phosphate 100 Mg Tablet) 100 mg PO DAILY [facility] Last Admin: 10/15/23 07:50 Dose: 100 mg Documented By: TAD Sodium Chloride (0.9 % Sodium Chloride Flush 3 Ml Syringe) 3 ml IVFLUSH QSHIFT [facility] Last Admin: 10/15/23 07:51 Dose: 3 ml Documented By: TAD Labs 10/14/23 14:50 10/15/23 06:00 Labs: Laboratory Results - last 24 hr 10/14/23 10/14/23 10/14/23 14:50 14:51 14:52 MCV 84.2 MCH 27.5 MCHC 32.6 RDW 13.8 Plt Count 245 D MPV 9.3 L Immature Gran % (Auto) 0.4 Neut % (Auto) 83.4 H Lymph % (Auto) 6.7 L [place] % (Auto) 9.2 Eos % (Auto) 0.1 Baso % (Auto) 0.2 Lymph # (Auto) 0.5 L [place] # (Auto) 0.7 Eos # (Auto) 0.0 Baso # (Auto) 0.0 Abs Immat Gran (auto) 0.03 Absolute Neuts (auto) 6.7 Absolute Nucleated RBC 0.000 Nucleated RBC % (auto) 0.0 Hold Purple Top SEE NOTE VBG pH 7.51 H VBG pCO2 31 VBG pO2 68 VBG HCO3 25 VBG O2 Saturation 96.0 VBG Base Excess 2.8 Anion Gap 13 Estim Creat Clear Calc 47.7 Estimated GFR > 60 Random Glucose 154 H Lactic Acid 2.6 H* Lactic Acid F/U @ 2Hr Calcium 7.8 L D Magnesium 1.2 L* Ammonia Troponin I High Sens 11.4 D B-Natriuretic Peptide 746 H Influenza Type A (PCR) POSITIVE A Influenza Type B (PCR) NEGATIVE RSV RNA Qual (PCR) NEGATIVE SARS-CoV-2 RNA (RT-PCR) NEGATIVE 10/14/23 10/14/23 10/15/23 15:20 17:40 06:00 MCV MCH MCHC RDW Plt Count MPV Immature Gran % (Auto) Neut % (Auto) Lymph % (Auto) [place] % (Auto) Eos % (Auto) Baso % (Auto) Lymph # (Auto) [place] # (Auto) Eos # (Auto) Baso # (Auto) Abs Immat Gran (auto) Absolute Neuts (auto) Absolute Nucleated RBC Nucleated RBC % (auto) Hold Purple Top SEE NOTE VBG pH VBG pCO2 VBG pO2 VBG HCO3 VBG O2 Saturation VBG Base Excess Anion Gap 11 L Estim Creat Clear Calc 40.8 Estimated GFR 55 Random Glucose 156 H Lactic Acid Lactic Acid F/U @ 2Hr 1.9 Calcium 8.2 L Magnesium 1.9 Ammonia 23 Troponin I High Sens B-Natriuretic Peptide Influenza Type A (PCR) Influenza Type B (PCR) RSV RNA Qual (PCR) SARS-CoV-2 RNA (RT-PCR) Assessment and Plan (1) Influenza: Status: Acute (2) Atrial fibrillation with rapid ventricular response: Status: Acute Plan 83-year-old Latvian-speaking female with a PMH significant for?persistent AFib on Xarelto, HTN, [id number] 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 Pt will be admitted to the hospital for treatment and further evaluation of AFib with RVR in the setting of influenza infection the viral sepsis. AFib with RVR Persistent atrial fibrillation heart rate in 120-130 range Differential Likely secondary to influenza infection, dehydration, updraft Status post IV Cardizem drip will continue metoprolol, Xarelto, will add by mouth Cardizem 30 t.i.d., give IV fluid 500 mL If no response will resume IV Cardizem drip Check TSH. Monitor on telemetry Sepsis due to Influenza infection Continue Tamiflu, benzonatate and as needed Xopenex updraft satting at 93-94% on RA Monitor respiratory status Hypomagnesmia Mag 1.2 at time of presentation status post IV magnesium repeat magnesium normalized Lactic acidosis, resolved Lactic acid 2.6 at time of presentation, repeat WNL at 1.9 after IVF in ED Likely secondary to nausea and vomiting, flu infection, no indication of superadded bacterial infection UA ordered Non-insulin dependent diabetes type [address] on sliding scale insulin and monitor point of care, continue Diabetic diet HTN Soft BP will hold valsartan Full Code DVT Prophylaxis: On Xarelto Pt will require continued inpatient hospitalization for treatment of?AFib with RVR in the setting of influenza infection with viral sepsis. Given pt's age and comorbidities including diabetes, pt is at risk of rapid deconditioning without hospitalization. Quality Stroke Does the patient have a stroke diagnosis?: No VTE Prior VTE?: No VTE Risk Level:: Medical - moderate - high VTE Device Contraindication: Treatment Not Indicated VTE Drug Contraindication: N/A - Med Ordered
[2023-10-15] MEDS: dilTIAZem HCL 30 MG TABLET PO ×2 (13:13→19:44)
[2023-10-15 13:59] LABS: Thyroid Stimulating Hormone 0.32 uIU/mL (0.32-4.0)
--- NOTE | 2023-10-15 15:05 | MHC.CM.PN ---
CM MET WITH PT AND GRANDDAUGHTER/[employer] AT BEDSIDE PT LIVES AT HOME WITH HER SON AND HAS DAILY [employer] SERVICES PT USES A WALKER AND WHEEL CHAIR AND HAS A HOSPITAL BED AT HOME COPY OF HCP REQUESTED PCP: [facility] DELIVERED DCP: HOME RESUME [employer] VIA FAMILY TRANSPORT
[2023-10-15 16:14] LABS: Glucose, Whole Blood 206 mg/dL (60-115)
[2023-10-15] MEDS: Insulin Lispro 100 UNIT/ML 3 ML VIAL SUBCUT (16:49)
[2023-10-15] MEDS: Melatonin 3 MG TABLET 6 MG PO (19:43)
[2023-10-15] MEDS: Gabapentin 400 MG CAPSULE PO (19:44)
[2023-10-15 19:59] LABS: Glucose, Whole Blood 113 mg/dL (60-115)
[2023-10-16] VITALS (10 sets, daily range): BP systolic 114–142; BP diastolic 61–79; PULSE 61–134; RESP 18–20; TEMP 36.1–37.5; O2SAT 92–99
[2023-10-16] MEDS: 0.9 % Sodium Chloride Flush 3 ML SYRINGE IVFLUSH ×2 (00:09→22:16)
[2023-10-16] MEDS: Oseltamivir Phosphate 30 MG CAPSULE PO ×2 (05:42→15:56)
[2023-10-16 06:58] LABS: Glucose, Whole Blood 129 mg/dL (60-115)
[2023-10-16] MEDS: Rivaroxaban 20 MG TABLET PO (08:37)
[2023-10-16] MEDS: dilTIAZem HCL 30 MG TABLET PO ×2 (08:37→15:56)
[2023-10-16] MEDS: SITagliptin Phosphate 100 MG TABLET PO (08:37)
[2023-10-16] MEDS: Atorvastatin Calcium 20 MG TABLET PO (08:37)
[2023-10-16] MEDS: Donepezil HCl 5 MG TABLET PO (08:37)
[2023-10-16] MEDS: Metoprolol Succinate ER 25 MG TAB.ER.24H PO (08:37)
[2023-10-16] MEDS: Ferrous Sulfate 324 MG TABLET.DR 648 MG PO (08:37)
[2023-10-16] MEDS: levalbuterol HCL 1.25 MG/3 ML VIAL.NEB INHALE (08:49)
[2023-10-16] MEDS: methylPREDNISolone Sod Succ 40 MG/ML VIAL IVPUSH ×2 (10:26→22:14)
[2023-10-16 10:54] LABS: Glucose, Whole Blood 155 mg/dL (60-115)
[2023-10-16] MEDS: Insulin Lispro 100 UNIT/ML 3 ML VIAL SUBCUT ×3 (11:05→22:14)
--- NOTE | 2023-10-16 11:05 | P.PNIM_ITS ---
Subjective Subjective Date of Service: 10/16/23 Interval History: History obtained via certified medical technician patient offers no acute complaints but noted to have tachycardia and bilateral audible wheeze. No acute overnight events. Review of Systems Baseline dementia unable to obtain review of system. Physical Exam 2 Vital Signs: Vital Signs: Last Vital Signs Temp 98.0 F 10/16/23 10:25 Pulse 103 H 10/16/23 10:25 Resp 20 10/16/23 10:25 BP 119/63 10/16/23 10:25 Pulse Ox 92 10/16/23 10:25 O2 Del Method Nasal Cannula 10/16/23 10:25 O2 Flow Rate 2 10/16/23 10:25 BMI result Body Mass Index 24.8 Const: Other: General awake alert, in no acute distress. Anicteric sclera Neck supple no JVD. CVS irregular rate rhythm,tachy Respiratory lungs bilateral rhonchi, no respiratory distress, no rales Gastrointestinal abdomen soft, non tender, bowel sounds audible, no guarding , no rigidity. Extremities no edema. Left BKA Neuro non focal, moving all 4 extremity speech clear. Skin no rash Objective Data Active Medications Acetaminophen (Acetaminophen 325 Mg Tablet) 650 mg PO Q6H PRN PRN Reason: Pain, Mild (Pain Scale 1-3) Last Admin: 10/15/23 05:43 Dose: 650 mg Documented By: CASSANDRA Atorvastatin Calcium (Atorvastatin Calcium 20 Mg Tablet) 20 mg PO DAILY [facility] Last Admin: 10/16/23 08:37 Dose: 20 mg Documented By: SEBLE Benzonatate (Benzonatate 100 Mg Capsule) 100 mg PO TID PRN PRN Reason: Cough Last Admin: 10/15/23 05:43 Dose: 100 mg Documented By: CASSANDRA Dextrose (Dextrose 50 % 25 Gm/50 Ml Syringe) 25 gm IVPUSH Q15M PRN; Protocol PRN Reason: per Hypoglycemia Standing Ord. Diltiazem HCl (Diltiazem Hcl 30 Mg Tablet) 30 mg PO TID [facility]; Protocol Last Admin: 10/16/23 08:37 Dose: 30 mg Documented By: SEBLE Docusate Sodium (Docusate Sodium 100 Mg Capsule) 100 mg PO DAILY PRN PRN Reason: Constipation Donepezil HCl (Donepezil Hcl 5 Mg Tablet) 5 mg PO DAILY [facility] Last Admin: 10/16/23 08:37 Dose: 5 mg Documented By: SEBLE Ferrous Sulfate (Ferrous Sulfate 324 Mg Tablet.) 648 mg PO DAILY [facility] Last Admin: 10/16/23 08:37 Dose: 648 mg Documented By: SEBLE Gabapentin (Gabapentin 400 Mg Capsule) 400 mg PO BEDTIME [facility] Last Admin: 10/15/23 19:44 Dose: 400 mg Documented By: ANDI Glucose (Glucose Gel 15 Gm Gel..Gram.) 15 gm PO Q15M PRN; Protocol PRN Reason: per Hypoglycemia Standing Ord. Insulin Human Lispro (Insulin Lispro 100 Unit/Ml 3 Ml Vial) 0 unit SUBCUT QIDACHS [facility]; Protocol Last Admin: 10/16/23 11:05 Dose: 2 unit Documented By: SEBLE Levalbuterol HCl (Levalbuterol Hcl 1.25 Mg/3 Ml Vial.Neb) 1.25 mg INHALE Q4H PRN PRN Reason: Shortness of Breath/Wheezing Last Admin: 10/16/23 08:49 Dose: 1.25 mg Documented By: CARMELINA Levalbuterol HCl (Levalbuterol Hcl 1.25 Mg/3 Ml Vial.Neb) 2.5 mg INHALE RQID [facility] Melatonin (Melatonin 3 Mg Tablet) 6 mg PO BEDTIME PRN PRN Reason: Insomnia Last Admin: 10/15/23 19:43 Dose: 6 mg Documented By: ANDI Methylprednisolone Sodium Succinate (Methylprednisolone Sod Succ 40 Mg/Ml Vial) 40 mg IVPUSH Q12H [facility] Last Admin: 10/16/23 10:26 Dose: 40 mg Documented By: SEBLE Metoprolol Succinate (Metoprolol Succinate Er 25 Mg Tab.Er.24h) 25 mg PO DAILY [facility]; Protocol Last Admin: 10/16/23 08:37 Dose: 25 mg Documented By: SEBLE Ondansetron HCl (Ondansetron Hcl 4 Mg/2 Ml Vial) 4 mg IVPUSH Q8H PRN PRN Reason: Nausea and Vomiting Oseltamivir Phosphate (Oseltamivir Phosphate 30 Mg Capsule) 30 mg PO Q12H [facility] Stop: 10/19/23 04:31 Last Admin: 10/16/23 05:42 Dose: 30 mg Documented By: BE Rivaroxaban (Rivaroxaban 20 Mg Tablet) 20 mg PO DAILY [facility] Last Admin: 10/16/23 08:37 Dose: 20 mg Documented By: SEBLE Sitagliptin Phosphate (Sitagliptin Phosphate 100 Mg Tablet) 100 mg PO DAILY [facility] Last Admin: 10/16/23 08:37 Dose: 100 mg Documented By: SEBLE Sodium Chloride (0.9 % Sodium Chloride Flush 3 Ml Syringe) 3 ml IVFLUSH QSHIFT [facility] Last Admin: 10/16/23 07:14 Dose: Not Given Documented By: SEBLE Non-Admin Reason: See Note Labs 10/14/23 14:50 10/15/23 06:00 Labs: Laboratory Results - last 24 hr 10/15/23 10/15/23 10/15/23 06:00 16:08 19:49 POC Glucose 206 H 113 TSH 0.32 10/16/23 10/16/23 06:54 10:51 POC Glucose 129 H 155 H TSH Microbiology Microbiology Results: Microbiology 10/14/23 15:20 Blood Culture - Preliminary Blood - Venous No growth after 24 hours. 10/14/23 14:51 Blood Culture - Preliminary Blood - Venous No growth after 24 hours. 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 Pt will be admitted to the hospital for treatment and further evaluation of AFib with RVR in the setting of influenza infection the viral sepsis. AFib with RVR Persistent atrial fibrillation heart rate in 120-130 range Differential Likely secondary to influenza infection, dehydration, updraft Status post IV Cardizem drip will continue metoprolol, Xarelto, and Cardizem 30 t.i.d. TSH.0.32 Monitor on telemetry Acute hypoxic respiratory failure due to influenza a infection Continue O2 support and wean as tolerated Sepsis due to Influenza infection Noted to have bilateral rhonchi will place on scheduled Xopenex and start IV steroids Continue Tamiflu, benzonatate and supportive care satting at 93-94% on 2-3 L Monitor respiratory status Hypomagnesmia Mag 1.2 at time of presentation status post IV magnesium repeat magnesium normalized acute Lactic acidosis, resolved Lactic acid 2.6 at time of presentation, repeat WNL at 1.9 after IVF in ED Non-insulin dependent diabetes type 2 Continue Januvia on sliding scale insulin and monitor point of care, continue Diabetic diet HTN Soft BP will hold valsartan Full Code DVT Prophylaxis: On Xarelto Pt will require continued inpatient hospitalization for treatment of?AFib with RVR in the setting of influenza infection with viral sepsis. Given pt's age and comorbidities including diabetes, pt is at risk of rapid deconditioning without hospitalization. Quality Stroke Does the patient have a stroke diagnosis?: No VTE Prior VTE?: No VTE Risk Level:: Medical - moderate - high VTE Device Contraindication: Treatment Not Indicated VTE Drug Contraindication: N/A - Med Ordered
[2023-10-16] MEDS: levalbuterol HCL 1.25 MG/3 ML VIAL.NEB 2.5 MG INHALE ×3 (11:16→19:47)
--- NOTE | 2023-10-16 11:27 | P.CDIM_ITS ---
PROVIDER RESPONSE TEXT: To clarify, the appropriate diagnosis supported by the clinical indicators: Acute QUERY TEXT: PHYSICIAN'S DOCUMENTATION REQUEST Date of Query: 10/16/2023 08:37 AM EST Patient Name: Silvana Moore Admit Date: 10/14/2023 Dear Audrey Deutsch, A review of the medical record indicates additional documentation may be needed. Please review below and update the documentation accordingly. Clinical Indicators: Progress note dated 10/15 - Plan: Lactic acidosis, resolved Lactic acid 2.6 at time and presentation, repeat WNL a 1.9 after IVF in Ed. Likely secondary to nausea and vomiting, flu infection, no indication of superadded bacterial infecti on. Clarify which of the following accurately represents the acuity of the Lactic acidosis: Possible options might include: Acute Acute on chronic Other (explain) Clinically unable to determine (explain) Thank you, Yennifer Bundy, CCS, CDIS Use of terms such as suspected, likely, concern for, or probable (associated with a specific diagnosi s that is being evaluated, monitored, or treated as if it exists) are acceptable and can be coded in the inpatient se tting, when documented at the time of discharge. Please use your independent medical judgment in providing your response. THIS QUERY IS PART OF THE PERMANENT MEDICAL RECORD
[2023-10-16 14:48] LABS: Glucose, Whole Blood 171 mg/dL (60-115)
--- NOTE | 2023-10-16 16:31 | PC.NURSE ---
around 1600 pt was difficult to awaken and stay awake, requiring multiple sternal rubs. Md was informed and vitals obtained. md informed otal temp was 93-95 and rectal temp 98.5. md assessed pt at bedside. afterwards pt was able to get OOB to commode and returned to baseline assessment this shift.
[2023-10-16 16:38] LABS: Glucose, Whole Blood 211 mg/dL (60-115)
[2023-10-16 19:48] LABS: Glucose, Whole Blood 224 mg/dL (60-115)
[2023-10-17] VITALS (7 sets, daily range): BP systolic 120–153; BP diastolic 60–74; PULSE 92–109; RESP 16–20; TEMP 36–36.6; O2SAT 92–98
[2023-10-17] MEDS: Oseltamivir Phosphate 30 MG CAPSULE PO ×2 (05:20→17:06)
[2023-10-17 07:06] LABS: Glucose, Whole Blood 205 mg/dL (60-115)
[2023-10-17] MEDS: levalbuterol HCL 1.25 MG/3 ML VIAL.NEB 2.5 MG INHALE (08:13)
[2023-10-17] MEDS: dilTIAZem HCL CD 120 MG CAP.ER.DEG PO (08:55)
[2023-10-17] MEDS: Rivaroxaban 20 MG TABLET PO (08:56)
[2023-10-17] MEDS: Donepezil HCl 5 MG TABLET PO (08:56)
[2023-10-17] MEDS: Metoprolol Succinate ER 25 MG TAB.ER.24H PO (08:56)
[2023-10-17] MEDS: Ferrous Sulfate 324 MG TABLET.DR 648 MG PO (08:56)
[2023-10-17] MEDS: Atorvastatin Calcium 20 MG TABLET PO (08:56)
[2023-10-17] MEDS: Insulin Lispro 100 UNIT/ML 3 ML VIAL SUBCUT ×4 (08:56→21:38)
[2023-10-17] MEDS: SITagliptin Phosphate 100 MG TABLET PO (08:56)
[2023-10-17] MEDS: methylPREDNISolone Sod Succ 40 MG/ML VIAL IVPUSH ×2 (08:59→21:38)
[2023-10-17] MEDS: 0.9 % Sodium Chloride Flush 3 ML SYRINGE IVFLUSH ×3 (09:08→21:40)
--- NOTE | 2023-10-17 09:09 | PC.NURSE ---
pt HR 130s-150s at rest, asymptomatic. MD aware PO Cardizem given, will continue to monitor
--- NOTE | 2023-10-17 10:27 | MHC.CM.PN ---
Per ROUNDS discussion, Patient is not yet medically cleared for dc (IV Solu Medrol); home/resume services is the goal and CM will continue to follow.
[2023-10-17 11:03] LABS: Glucose, Whole Blood 309 mg/dL (60-115)
[2023-10-17] MEDS: dilTIAZem HCL 50 MG/10 ML VIAL 10 MG IVPUSH (12:56)
--- NOTE | 2023-10-17 14:23 | P.CONCA_ITS ---
History of Present Illness History of Present Illness Date of Service: 10/17/23 Requesting physician: Audrey Deutsch Consult reason: atrial fibrillation Chief complaint: Afib with RVR,flu+ Narrative: I was consulted to see Silvana in cardiology consultation today for atrial fibrillation rapid ventricular response. History was obtained with help of station examiner. Despite the station examiner patient is not a very good historian. She does have history of cognitive dysfunction and not able to provide detailed history. She was not aware of that she has history of atrial fibrillation although she is did confirm that she does take Xarelto at home. She has recently come from [place] as her son is sick. However she ended up getting fever and shows an end up coming to the hospital was noted to have flu. Unclear whether she has persistent atrial fibrillation or paroxysmal atrial fibrillation. Reported that she was on amiodarone in the past with patient has no idea about the same. EKG in December showed atrial fibrillation with slow ventricular response. EKG on admission showed atrial fibrillation rapid ventricular response with nonspecific ST T wave changes. She has past medical history of atrial fibrillation, persistent, hypertension, diabetes, neuropathy, left above knee amputation, hyperlipidemia. Patient was started on increasing rate control therapy in her heart rate is gradually improved. Heart rate currently when I was seeing was 109 beats per minute. She has no symptoms of palpitation. Denies any chest pain or shortness of breath. She says she is wheezing. Review of Systems 2 Constitutional: Constitutional: Reports fever(s) and Reports weakness Eyes: Eyes: Reports no additional eye complaints Cardiovascular: Cardiovascular: Reports no additional cardiovascular complaints Respiratory: Respiratory: Reports wheezing Gastrointestinal: Gastrointestinal: Reports no additional gastrointestinal complaints Genitourinary: Genitourinary: Reports no additional female genitourinary complaints Musculoskeletal: Musculoskeletal: Reports no additional musculoskeletal complaints Neurologic: Reports system reviewed and no additional complaints, except as documented and Reports weakness Endocrine: Endocrine: Reports no additional endocrine complaints Hematologic/Lymphatic: Hematologic/Lymphatic: Reports no additional hematologic/lymphatic complaints Allergic/Immunologic: Allergic/Immunologic: Reports wheezing PMFSH Surgical History Surgical History 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) Social History Social History Household Members: Family Housing: Apartment Do you presently have visiting nurse or other home services: Yes Alcohol intake: never Patient Tobacco Use Status: Never used Tobacco Smoked in Last 30 Days: No Patient Interested in Nicotine Replacement: No Patient Given Instructions on How to Stop Smoking: No Second Hand Smoke Exposure: No Use of substances other than those prescribed or required for medical reasons: No Currently Displaying Signs/Symptoms of Drug Intoxication Withdrawal: No Any prior treatment program specific to substance use: No Have you been hit, kicked, punched, or otherwise hurt by someone within the past year? If so, by whom?: No Do you feel safe in your current relationship?: Yes Is there a partner from a previous relationship who is making you feel unsafe now?: No Are you made to feel afraid or neglected: No Advance Directives: No Advance Directives Information Provided: No Do you have thoughts of harming others: None Do you have a plan to hurt others: No Plan Recently lost weight without trying: No Eating poorly because of decreased appetite: No Nutrition Risks: No Nutritional Risk Patient : No : No Poor oral hygiene: No service: No Meds Allergies Allergy/AdvReac Type Severity Reaction Status Date / Time No Known Allergies Allergy Verified 08/23/23 10:36 Active Medications: Current Medications Acetaminophen (Acetaminophen 325 Mg Tablet) 650 mg PO Q6H PRN PRN Reason: Pain, Mild (Pain Scale 1-3) Last Admin: 10/15/23 05:43 Dose: 650 mg Atorvastatin Calcium (Atorvastatin Calcium 20 Mg Tablet) 20 mg PO DAILY [facility] Last Admin: 10/17/23 08:56 Dose: 20 mg Benzonatate (Benzonatate 100 Mg Capsule) 100 mg PO TID PRN PRN Reason: Cough Last Admin: 10/15/23 05:43 Dose: 100 mg Dextrose (Dextrose 50 % 25 Gm/50 Ml Syringe) 25 gm IVPUSH Q15M PRN; Protocol PRN Reason: per Hypoglycemia Standing Ord. Diltiazem HCl (Diltiazem Hcl Cd 120 Mg Cap.Er.Deg) 120 mg PO DAILY [facility]; Protocol Last Admin: 10/17/23 08:55 Dose: 120 mg Docusate Sodium (Docusate Sodium 100 Mg Capsule) 100 mg PO DAILY PRN PRN Reason: Constipation Donepezil HCl (Donepezil Hcl 5 Mg Tablet) 5 mg PO DAILY [facility] Last Admin: 10/17/23 08:56 Dose: 5 mg Ferrous Sulfate (Ferrous Sulfate 324 Mg Tablet.) 648 mg PO DAILY [facility] Last Admin: 10/17/23 08:56 Dose: 648 mg Gabapentin (Gabapentin 400 Mg Capsule) 400 mg PO BEDTIME [facility] Last Admin: 10/16/23 22:07 Dose: Not Given Glucose (Glucose Gel 15 Gm Gel..Gram.) 15 gm PO Q15M PRN; Protocol PRN Reason: per Hypoglycemia Standing Ord. Insulin Human Lispro (Insulin Lispro 100 Unit/Ml 3 Ml Vial) 0 unit SUBCUT QIDACHS [facility]; Protocol Last Admin: 10/17/23 11:54 Dose: 8 unit Levalbuterol HCl (Levalbuterol Hcl 1.25 Mg/3 Ml Vial.Neb) 1.25 mg INHALE Q4H PRN PRN Reason: Shortness of Breath/Wheezing Last Admin: 10/16/23 08:49 Dose: 1.25 mg Levalbuterol HCl (Levalbuterol Hcl 1.25 Mg/3 Ml Vial.Neb) 2.5 mg INHALE RQID [facility] Last Admin: 10/17/23 12:20 Dose: Not Given Melatonin (Melatonin 3 Mg Tablet) 6 mg PO BEDTIME PRN PRN Reason: Insomnia Last Admin: 10/15/23 19:43 Dose: 6 mg Methylprednisolone Sodium Succinate (Methylprednisolone Sod Succ 40 Mg/Ml Vial) 40 mg IVPUSH Q12H [facility] Last Admin: 10/17/23 08:59 Dose: 40 mg Metoprolol Succinate (Metoprolol Succinate Er 25 Mg Tab.Er.24h) 25 mg PO DAILY [facility]; Protocol Last Admin: 10/17/23 08:56 Dose: 25 mg Ondansetron HCl (Ondansetron Hcl 4 Mg/2 Ml Vial) 4 mg IVPUSH Q8H PRN PRN Reason: Nausea and Vomiting Oseltamivir Phosphate (Oseltamivir Phosphate 30 Mg Capsule) 30 mg PO Q12H [facility] Stop: 10/19/23 04:31 Last Admin: 10/17/23 05:20 Dose: 30 mg Rivaroxaban (Rivaroxaban 20 Mg Tablet) 20 mg PO DAILY [facility] Last Admin: 10/17/23 08:56 Dose: 20 mg Sitagliptin Phosphate (Sitagliptin Phosphate 100 Mg Tablet) 100 mg PO DAILY [facility] Last Admin: 10/17/23 08:56 Dose: 100 mg Sodium Chloride (0.9 % Sodium Chloride Flush 3 Ml Syringe) 3 ml IVFLUSH QSHIFT [facility] Last Admin: 10/17/23 09:08 Dose: 3 ml Home Medications Medication Instructions Recorded Confirmed Last Taken Type gabapentin 400 mg capsule 400 mg PO BEDTIME 01/16/23 10/14/23 10/13/23 History ferrous sulfate 325 mg (65 mg 650 mg PO QAM 10/14/23 10/14/23 10/14/23 History iron) tablet (FeroSul) metformin 500 mg tablet 500 mg PO BIDWM 10/14/23 10/14/23 10/14/23 History metoprolol succinate 25 mg 25 mg PO QAM 10/14/23 10/14/23 10/14/23 History tablet,extended release 24 hr Physical Exam 2 Vital Signs: Vital Signs: Last Vital Signs Temp 97.1 F 10/17/23 11:09 Pulse 109 H 10/17/23 11:09 Resp 18 10/17/23 11:09 BP 124/66 10/17/23 11:09 Pulse Ox 95 10/17/23 11:09 O2 Del Method Room Air 10/17/23 11:09 O2 Flow Rate 1 10/17/23 07:22 BMI result Body Mass Index 24.8 Const: General: cooperative, comfortable, no acute distress, alert and awake Nutritional Appearance: overweight Orientation/consciousness: patient oriented x3 HEENT: Head: Yes normocephalic and Yes atraumatic Neck: Neck: Yes trachea midline, Yes supple and Yes no JVD Resp: Effort & Inspection: normal respiratory effort Auscultation: wheezes Cardio: Jugular venous distension: no JVD Rate: tachycardic Rhythm: a bnormal rhythm irregularly irregular Heart sounds: S1 normal heart sound present, S2 normal heart sound present, no click, no gallops, no murmurs and no rubs GI: Auscultation: normal bowel sounds Skin: General skin exam: no rashes or lesions noted Neuro: General: patient oriented x3 and no focal motor deficits Extrem: General: Yes no clubbing, cyanosis or edema Objective Labs and Meds 10/14/23 14:50 10/15/23 06:00 Lab results: Laboratory Results - last 24 hr 10/16/23 10/16/23 10/16/23 14:44 16:32 19:41 POC Glucose 171 H 211 H 224 H 10/17/23 10/17/23 07:01 10:58 POC Glucose 205 H 309 H Assessment and Plan (1) Atrial fibrillation with rapid ventricular response: Status: Acute Atrial fibrillation rapid ventricular response related to acute medical illness with influenza. Patient has no symptoms related to it. Agree with current rate control strategy with increasing metoprolol does to 25 mg q.6 hours and continue Cardizem CD. Intermittent IV Cardizem can be addressed. 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 Continue full oral anticoagulation with Xarelto. Patient does have prior history of slow heart rate response to AFib. Will follow. Continue full disclosure cardiac telemetry. Will follow with you Procedures Date of Service Date of Service: 10/17/23
--- NOTE | 2023-10-17 14:32 | HO.PM.IMPN ---
Subjective Subjective Date of Service: 10/17/23 Interval History: History obtained via manager account management, patient's daughter at bedside Patient denies symptoms of chest pain, no shortness on breath, no palpitation, no headache, no dizziness, noted to have atrial fibrillation with rapid ventricular response heart rate up to 150s. Review of Systems All other system reviewed and negative Physical Exam Vital Signs: Vital Signs: Last Vital Signs Temp 97.1 F 10/17/23 11:09 Pulse 109 H 10/17/23 11:09 Resp 18 10/17/23 11:09 BP 124/66 10/17/23 11:09 Pulse Ox 95 10/17/23 11:09 O2 Del Method Room Air 10/17/23 11:09 O2 Flow Rate 1 10/17/23 07:22 BMI result Body Mass Index 24.8 Const: Other: General awake alert, in no acute distress. Anicteric sclera Neck supple no JVD. CVS irregular rate rhythm,tachy Respiratory lungs coarse breath sound, no respiratory distress, no rales, occasional rhonchi Gastrointestinal abdomen soft, non tender, bowel sounds audible, no guarding , no rigidity. Extremities no edema. Left AKA Neuro non focal, moving all 4 extremity speech clear. Skin no rash Objective Data Active Medications Acetaminophen (Acetaminophen 325 Mg Tablet) 650 mg PO Q6H PRN PRN Reason: Pain, Mild (Pain Scale 1-3) Last Admin: 10/15/23 05:43 Dose: 650 mg Documented By: CASSANDRA Atorvastatin Calcium (Atorvastatin Calcium 20 Mg Tablet) 20 mg PO DAILY [facility] Last Admin: 10/17/23 08:56 Dose: 20 mg Documented By: DOMINIK Benzonatate (Benzonatate 100 Mg Capsule) 100 mg PO TID PRN PRN Reason: Cough Last Admin: 10/15/23 05:43 Dose: 100 mg Documented By: CASSANDRA Dextrose (Dextrose 50 % 25 Gm/50 Ml Syringe) 25 gm IVPUSH Q15M PRN; Protocol PRN Reason: per Hypoglycemia Standing Ord. Diltiazem HCl (Diltiazem Hcl Cd 120 Mg Cap.Er.Deg) 120 mg PO DAILY [facility]; Protocol Last Admin: 10/17/23 08:55 Dose: 120 mg Documented By: DOMINIK Docusate Sodium (Docusate Sodium 100 Mg Capsule) 100 mg PO DAILY PRN PRN Reason: Constipation Donepezil HCl (Donepezil Hcl 5 Mg Tablet) 5 mg PO DAILY [facility] Last Admin: 10/17/23 08:56 Dose: 5 mg Documented By: DOMINIK Ferrous Sulfate (Ferrous Sulfate 324 Mg Tablet.) 648 mg PO DAILY [facility] Last Admin: 10/17/23 08:56 Dose: 648 mg Documented By: DOMINIK Gabapentin (Gabapentin 400 Mg Capsule) 400 mg PO BEDTIME [facility] Last Admin: 10/16/23 22:07 Dose: Not Given Documented By: BOY Non-Admin Reason: Physician Approved Comments: patient lethargic Glucose (Glucose Gel 15 Gm Gel..Gram.) 15 gm PO Q15M PRN; Protocol PRN Reason: per Hypoglycemia Standing Ord. Insulin Human Lispro (Insulin Lispro 100 Unit/Ml 3 Ml Vial) 0 unit SUBCUT QIDACHS [facility]; Protocol Last Admin: 10/17/23 11:54 Dose: 8 unit Documented By: DOMINIK Levalbuterol HCl (Levalbuterol Hcl 1.25 Mg/3 Ml Vial.Neb) 1.25 mg INHALE Q4H PRN PRN Reason: Shortness of Breath/Wheezing Last Admin: 10/16/23 08:49 Dose: 1.25 mg Documented By: CARMELINA Levalbuterol HCl (Levalbuterol Hcl 1.25 Mg/3 Ml Vial.Neb) 2.5 mg INHALE RQID [facility] Last Admin: 10/17/23 12:20 Dose: Not Given Documented By: NANCY Non-Admin Reason: pt hr 110-125. MD patel Melatonin (Melatonin 3 Mg Tablet) 6 mg PO BEDTIME PRN PRN Reason: Insomnia Last Admin: 10/15/23 19:43 Dose: 6 mg Documented By: ANDI Methylprednisolone Sodium Succinate (Methylprednisolone Sod Succ 40 Mg/Ml Vial) 40 mg IVPUSH Q12H [facility] Last Admin: 10/17/23 08:59 Dose: 40 mg Documented By: DOMINIK Metoprolol Succinate (Metoprolol Succinate Er 25 Mg Tab.Er.24h) 25 mg PO DAILY [facility]; Protocol Last Admin: 10/17/23 08:56 Dose: 25 mg Documented By: DOMINIK Ondansetron HCl (Ondansetron Hcl 4 Mg/2 Ml Vial) 4 mg IVPUSH Q8H PRN PRN Reason: Nausea and Vomiting Oseltamivir Phosphate (Oseltamivir Phosphate 30 Mg Capsule) 30 mg PO Q12H [facility] Stop: 10/19/23 04:31 Last Admin: 10/17/23 05:20 Dose: 30 mg Documented By: BOY Rivaroxaban (Rivaroxaban 20 Mg Tablet) 20 mg PO DAILY [facility] Last Admin: 10/17/23 08:56 Dose: 20 mg Documented By: DOMINIK Sitagliptin Phosphate (Sitagliptin Phosphate 100 Mg Tablet) 100 mg PO DAILY [facility] Last Admin: 10/17/23 08:56 Dose: 100 mg Documented By: DOMINIK Sodium Chloride (0.9 % Sodium Chloride Flush 3 Ml Syringe) 3 ml IVFLUSH QSHIFT [facility] Last Admin: 10/17/23 09:08 Dose: 3 ml Documented By: DOMINIK Labs 10/14/23 14:50 10/15/23 06:00 Labs: Laboratory Results - last 24 hr 10/16/23 10/16/23 10/16/23 14:44 16:32 19:41 POC Glucose 171 H 211 H 224 H 10/17/23 10/17/23 07:01 10:58 POC Glucose 205 H 309 H Microbiology Microbiology Results: Microbiology 10/14/23 15:20 Blood Culture - Preliminary Blood - Venous No growth after 48 hours. 10/14/23 14:51 Blood Culture - Preliminary Blood - Venous No growth after 48 hours. 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 Pt will be admitted to the hospital for treatment and further evaluation of AFib with RVR in the setting of influenza infection the viral sepsis. AFib with RVR Persistent atrial fibrillation heart rate in 130 -150 range Differential Likely secondary to influenza infection, dehydration, updraft Status post IV Cardizem drip will continue metoprolol 25 XL, Xarelto, and change Cardizem to Cardizem CD 120 mg Gave 1 dose of IV Cardizem 10 mg heart rate improved will hold off on increasing dose of metoprolol to avoid bradycardia with prior history of low heart rates. TSH.0.32 Continue close telemetry monitoring Case discussed with Cardiology. Acute hypoxic respiratory failure due to influenza a infection Continue O2 support and wean as tolerated, not on home O2 Sepsis due to Influenza infection Respiratory status improved continue IV steroids and change Xopenex to as needed since patient noted to have worsening heart rate after updraft Continue Tamiflu, benzonatate and supportive care satting at 93-94% on room air Monitor respiratory status Hypomagnesmia Mag 1.2 at time of presentation status post IV magnesium repeat magnesium normalized acute Lactic acidosis, resolved Lactic acid 2.6 at time of presentation, repeat WNL at 1.9 after IVF in ED Non-insulin dependent diabetes type 2 Continue Januvia on sliding scale insulin and monitor point of care, continue Diabetic diet HTN dc valsartan since placed on Cardizem Full Code DVT Prophylaxis: On Xarelto Pt will require continued inpatient hospitalization for treatment of?AFib with RVR in the setting of influenza infection with viral sepsis. Given pt's age and comorbidities including diabetes, pt is at risk of rapid deconditioning without hospitalization. Quality Stroke Does the patient have a stroke diagnosis?: No VTE Prior VTE?: No VTE Risk Level:: Medical - moderate - high VTE Device Contraindication: Treatment Not Indicated VTE Drug Contraindication: N/A - Med Ordered
[2023-10-17 16:57] LABS: Glucose, Whole Blood 287 mg/dL (60-115)
[2023-10-17 20:19] LABS: Glucose, Whole Blood 233 mg/dL (60-115)
[2023-10-17] MEDS: Melatonin 3 MG TABLET 6 MG PO (21:37)
[2023-10-17] MEDS: Gabapentin 400 MG CAPSULE PO (21:37)
[2023-10-18 03:28] VITALS: BP 122/66; PULSE 88; RESP 19; TEMP 36.4; O2SAT 97
[2023-10-18] MEDS: Oseltamivir Phosphate 30 MG CAPSULE PO ×2 (05:24→16:43)
[2023-10-18 07:26] VITALS: BP 140/75; PULSE 97; RESP 21; TEMP 36.6; O2SAT 96
[2023-10-18] MEDS: Insulin Lispro 100 UNIT/ML 3 ML VIAL SUBCUT ×4 (08:37→21:09)
[2023-10-18] MEDS: methylPREDNISolone Sod Succ 40 MG/ML VIAL IVPUSH (08:38)
[2023-10-18] MEDS: Metoprolol Succinate ER 25 MG TAB.ER.24H PO ×2 (08:39→12:04)
[2023-10-18] MEDS: Ferrous Sulfate 324 MG TABLET.DR 648 MG PO (08:39)
[2023-10-18] MEDS: dilTIAZem HCL CD 120 MG CAP.ER.DEG PO (08:39)
[2023-10-18] MEDS: SITagliptin Phosphate 100 MG TABLET PO (08:39)
[2023-10-18] MEDS: Rivaroxaban 20 MG TABLET PO (08:39)
[2023-10-18] MEDS: Atorvastatin Calcium 20 MG TABLET PO (08:40)
[2023-10-18] MEDS: Donepezil HCl 5 MG TABLET PO (08:40)
[2023-10-18] MEDS: 0.9 % Sodium Chloride Flush 3 ML SYRINGE IVFLUSH ×3 (08:46→21:15)
--- NOTE | 2023-10-18 10:12 | PM.PNCARD ---
Subjective Subjective Date of Service: 10/18/23 Principal diagnosis: Atrial fibrillation Interval history: No new cardiac symptoms. Rate is better controlled. Still however remains on metoprolol 25 mg daily. No slow heart rate overnight. Review of Systems Constitutional: Reports no additional constitutional complaints Cardiovascular: Reports no additional cardiovascular complaints Respiratory: Reports wheezing Reports system reviewed and no additional complaints, except as documented Allergic/Immunologic: Reports wheezing Physical Exam Vital Signs: Last Vital Signs Temp 97.9 F 10/18/23 07:26 Pulse 97 10/18/23 07:26 Resp 21 H 10/18/23 07:26 BP 140/75 H 10/18/23 07:26 Pulse Ox 96 10/18/23 07:26 O2 Del Method Room Air 10/18/23 07:26 O2 Flow Rate 1 10/17/23 07:22 BMI result Body Mass Index 24.8 Const General: cooperative, comfortable, no acute distress, alert and awake Nutritional Appearance: overweight Orientation/consciousness: patient oriented x3 HEENT Head: Yes normocephalic and Yes atraumatic Neck Neck: Yes trachea midline, Yes supple and Yes no JVD Resp Effort & Inspection: normal respiratory effort Auscultation: wheezes Cardio Jugular venous distension: no JVD Rate: tachycardic Rhythm: abnormal rhythm irregularly irregular Heart sounds: S1 normal heart sound present, S2 normal heart sound present, no click, no gallops, no murmurs and no rubs GI Auscultation: normal bowel sounds Skin General skin exam: no rashes or lesions noted Neuro General: patient oriented x3 and no focal motor deficits Extrem General: Yes no clubbing, cyanosis or edema Objective Labs and Meds 10/14/23 14:50 10/15/23 06:00 Lab results: Laboratory Results - last 24 hr 10/17/23 10/17/23 10/17/23 10:58 16:52 20:14 POC Glucose 309 H 287 H 233 H Progress Note: A&P Assessment and plan (1) Atrial fibrillation with rapid ventricular response: Status: Acute Assessment and Plan: Atrial fibrillation with slightly rapid ventricular response related to acute medical illness. Can increase metoprolol as discussed yesterday. Blood pressure is adequate. Continue Cardizem therapy. Continue full oral anticoagulation, currently on Xarelto. Continue manage underlying medical condition aggressively. At this point time will sign off. Thank you for allowing me to partake in the care Time Spent With Patient Time: Total time managing care of this patient today ____ minutes. Progress Note: Quality Stroke Does the patient have a stroke diagnosis?: No Procedures Date of Service Date of Service: 10/18/23
[2023-10-18 10:54] LABS: Glucose, Whole Blood 254 mg/dL (60-115)
[2023-10-18 11:41] VITALS: BP 122/72; PULSE 92; RESP 20; TEMP 36.2; O2SAT 93
[2023-10-18 11:48] LABS: Glucose, Whole Blood 326 mg/dL (60-115)
--- NOTE | 2023-10-18 13:33 | P.PNIM_ITS ---
Subjective Subjective Date of Service: 10/18/23 Interval History: seen and examined this morning History obtained with the assistance of a vp production follow up for flu, afib with RVR - HR still uncontrolled denies shortness of breath, palpitations, dizziness, chest pain Review of Systems Review of Systems: Yes all other systems are reviewed and are negative Constitutional Constitutional: Denies chills and Denies fever(s) Cardiovascular Cardiovascular: Denies chest pain, Denies palpitations and Denies dyspnea Respiratory Respiratory: Denies cough and Denies dyspnea Gastrointestinal Gastrointestinal: Denies abdominal pain Endocrine Endocrine: Denies palpitations Physical Exam 2 Vital Signs: Vital Signs: Last Vital Signs Temp 97.2 F 10/18/23 11:41 Pulse 92 10/18/23 11:41 Resp 20 10/18/23 11:41 BP 122/72 10/18/23 11:41 Pulse Ox 93 10/18/23 11:41 O2 Del Method Room Air 10/18/23 11:41 O2 Flow Rate 1 10/17/23 07:22 BMI result Body Mass Index 24.8 Const: General: cooperative, comfortable, no acute distress, alert and awake Nutritional Appearance: average body habitus Resp: Other: course breath sounds; no wheeze Effort & Inspection: normal respiratory effort, no respiratory distress and no use of accessory muscles Cardio: Rhythm: abnormal rhythm irregularly irregular GI: Inspection: No distended Palpation (GI): Soft to palpation and nontender Neuro: Other: grossly nonfocal General: moves all extremities Extrem: Other: left AKA Objective Data Active Medications Acetaminophen (Acetaminophen 325 Mg Tablet) 650 mg PO Q6H PRN PRN Reason: Pain, Mild (Pain Scale 1-3) Last Admin: 10/15/23 05:43 Dose: 650 mg Documented By: CASSANDRA Atorvastatin Calcium (Atorvastatin Calcium 20 Mg Tablet) 20 mg PO DAILY [facility] Last Admin: 10/18/23 08:40 Dose: 20 mg Documented By: TEE Benzonatate (Benzonatate 100 Mg Capsule) 100 mg PO TID PRN PRN Reason: Cough Last Admin: 10/15/23 05:43 Dose: 100 mg Documented By: CASSANDRA Dextrose (Dextrose 50 % 25 Gm/50 Ml Syringe) 25 gm IVPUSH Q15M PRN; Protocol PRN Reason: per Hypoglycemia Standing Ord. Diltiazem HCl (Diltiazem Hcl Cd 120 Mg Cap.Er.Deg) 120 mg PO DAILY [facility]; Protocol Last Admin: 10/18/23 08:39 Dose: 120 mg Documented By: TEE Docusate Sodium (Docusate Sodium 100 Mg Capsule) 100 mg PO DAILY PRN PRN Reason: Constipation Donepezil HCl (Donepezil Hcl 5 Mg Tablet) 5 mg PO DAILY [facility] Last Admin: 10/18/23 08:40 Dose: 5 mg Documented By: TEE Ferrous Sulfate (Ferrous Sulfate 324 Mg Tablet.Dr) 648 mg PO DAILY [facility] Last Admin: 10/18/23 08:39 Dose: 648 mg Documented By: TEE Gabapentin (Gabapentin 400 Mg Capsule) 400 mg PO BEDTIME [facility] Last Admin: 10/17/23 21:37 Dose: 400 mg Documented By: NIYA Glucose (Glucose Gel 15 Gm Gel..Gram.) 15 gm PO Q15M PRN; Protocol PRN Reason: per Hypoglycemia Standing Ord. Insulin Human Lispro (Insulin Lispro 100 Unit/Ml 3 Ml Vial) 0 unit SUBCUT QIDACHS [facility]; Protocol Last Admin: 10/18/23 12:05 Dose: 8 unit Documented By: TEE Levalbuterol HCl (Levalbuterol Hcl 1.25 Mg/3 Ml Vial.Neb) 1.25 mg INHALE Q4H PRN PRN Reason: Shortness of Breath/Wheezing Last Admin: 10/16/23 08:49 Dose: 1.25 mg Documented By: CARMELINA Levalbuterol HCl (Levalbuterol Hcl 1.25 Mg/3 Ml Vial.Neb) 2.5 mg INHALE RQID PRN PRN Reason: wheeze Melatonin (Melatonin 3 Mg Tablet) 6 mg PO BEDTIME PRN PRN Reason: Insomnia Last Admin: 10/17/23 21:37 Dose: 6 mg Documented By: NIYA Metoprolol Succinate (Metoprolol Succinate Er 50 Mg Tab.Er.24h) 50 mg PO DAILY [facility]; Protocol Ondansetron HCl (Ondansetron Hcl 4 Mg/2 Ml Vial) 4 mg IVPUSH Q8H PRN PRN Reason: Nausea and Vomiting Oseltamivir Phosphate (Oseltamivir Phosphate 30 Mg Capsule) 30 mg PO Q12H [facility] Stop: 10/19/23 04:31 Last Admin: 10/18/23 05:24 Dose: 30 mg Documented By: NIYA Prednisone (Prednisone 20 Mg Tablet) 40 mg PO DAILY [facility] Rivaroxaban (Rivaroxaban 20 Mg Tablet) 20 mg PO DAILY [facility] Last Admin: 10/18/23 08:39 Dose: 20 mg Documented By: TEE Sitagliptin Phosphate (Sitagliptin Phosphate 100 Mg Tablet) 100 mg PO DAILY [facility] Last Admin: 10/18/23 08:39 Dose: 100 mg Documented By: TEE Sodium Chloride (0.9 % Sodium Chloride Flush 3 Ml Syringe) 3 ml IVFLUSH QSHIFT [facility] Last Admin: 10/18/23 08:46 Dose: 3 ml Documented By: TEE Labs 10/14/23 14:50 10/15/23 06:00 Labs: Laboratory Results - last 24 hr 10/17/23 10/17/23 10/18/23 16:52 20:14 07:43 POC Glucose 287 H 233 H 254 H 10/18/23 11:39 POC Glucose 326 H Assessment and Plan (1) Influenza: Status: Acute (2) Atrial fibrillation with rapid ventricular response: Status: Acute Plan This is an 83-year-old Citizen Of [place]-speaking female with a PMH significant for?persistent AFib on Xarelto, HTN, [id number] 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 Pt will be admitted to the hospital for treatment and further evaluation of AFib with RVR in the setting of influenza infection and viral sepsis. AFib with RVR HR improving, but remains elevated. Likely secondary to influenza infection, dehydration, updraft Status post IV Cardizem now on Cardizem CD 120 mg seen by cardiology - rec to increase dose of metoprolol to toprol xl 50 mg TSH.0.32 Continue close telemetry monitoring Acute hypoxic respiratory failure due to influenza a infection weaned off of supplemental oxygen Sepsis due to Influenza infection Respiratory status improved, will transition to po steroids changed Xopenex to as needed since patient noted to have worsening heart rate after updraft Continue Tamiflu, benzonatate and supportive care satting at 93-94% on room air Hypomagnesmia Mag 1.2 at time of presentation status post IV magnesium repeat magnesium normalized acute Lactic acidosis, resolved Lactic acid 2.6 at time of presentation, repeat WNL at 1.9 after IVF in ED Non-insulin dependent diabetes type 2 Continue Januvia on sliding scale insulin and monitor point of care, continue Diabetic diet resume metformin upon discharge HTN dc valsartan since placed on Cardizem Full Code DVT Prophylaxis: On Xarelto dispo - anticipated home in the next 24-48hours Pt will require continued inpatient hospitalization for treatment of?AFib with RVR in the setting of influenza infection with viral sepsis. Given pt's age and comorbidities including diabetes, pt is at risk of rapid decompemsation Quality Stroke Does the patient have a stroke diagnosis?: No VTE Prior VTE?: No VTE Risk Level:: Medical - moderate - high VTE Device Contraindication: Treatment Not Indicated VTE Drug Contraindication: N/A - Med Ordered
[2023-10-18 15:53] VITALS: BP 140/79; PULSE 77; RESP 20; TEMP 36.4; O2SAT 93
[2023-10-18 16:30] LABS: Glucose, Whole Blood 244 mg/dL (60-115)
[2023-10-18 19:27] VITALS: BP 152/72; PULSE 87; RESP 20; TEMP 36.6; O2SAT 90
[2023-10-18 20:25] LABS: Glucose, Whole Blood 297 mg/dL (60-115)
[2023-10-18] MEDS: Gabapentin 400 MG CAPSULE PO (21:10)
[2023-10-18] MEDS: Melatonin 3 MG TABLET 6 MG PO (21:10)
[2023-10-19] VITALS: BP 136/63; PULSE 83; RESP 20; TEMP 36.1; O2SAT 93
[2023-10-19 03:22] VITALS: BP 127/70; PULSE 86; RESP 20; TEMP 36.1; O2SAT 92
[2023-10-19] MEDS: Oseltamivir Phosphate 30 MG CAPSULE PO (04:16)
[2023-10-19 07:12] VITALS: BP 157/83; PULSE 85; RESP 16; TEMP 36.8; O2SAT 94
[2023-10-19 07:37] LABS: Glucose, Whole Blood 239 mg/dL (60-115)
[2023-10-19] MEDS: Atorvastatin Calcium 20 MG TABLET PO (08:33)
[2023-10-19] MEDS: dilTIAZem HCL CD 120 MG CAP.ER.DEG PO (08:33)
[2023-10-19] MEDS: SITagliptin Phosphate 100 MG TABLET PO (08:33)
[2023-10-19] MEDS: predniSONE 20 MG TABLET 40 MG PO (08:33)
[2023-10-19] MEDS: Rivaroxaban 20 MG TABLET PO (08:33)
[2023-10-19] MEDS: Donepezil HCl 5 MG TABLET PO (08:33)
[2023-10-19] MEDS: Insulin Lispro 100 UNIT/ML 3 ML VIAL SUBCUT (08:33)
[2023-10-19] MEDS: Ferrous Sulfate 324 MG TABLET.DR 648 MG PO (08:33)
[2023-10-19] MEDS: Metoprolol Succinate ER 50 MG TAB.ER.24H PO (08:33)
[2023-10-19] MEDS: 0.9 % Sodium Chloride Flush 3 ML SYRINGE IVFLUSH (08:34)
--- NOTE | 2023-10-19 10:28 | P.DS_ITS ---
DS: Providers Provider Date of Service: 10/19/23 Date of admission: 10/14/23 18:36 Date of discharge: 10/19/23 Primary care physician: Charla Sandhu MD Consults: 10/17/23 10:10 Consult to Cardiology Routine Consulting Provider: Javier Curiel Reason for consultation: afib with rvr Attending physician on discharge: Rei Saucedo Discharging clinician: Elina Cho DS: Diagnosis Discharge Diagnosis (1) Influenza: Status: Acute (2) Atrial fibrillation with rapid ventricular response: Status: Acute DS: Summary Hospital Course Hospital Course: From H&P on the day of admission Pt is an 83-year-old [place]ian-speaking female with a PMH significant for?persistent AFib on Xarelto, HTN, [id number] 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 Pt's granddaughter and PCP is at bedside and helps supplement HPI. Center Director Lead Teacher services utilized. Granddaughter states she arrived earlier this morning at pt's house to check on her and found her confused, barely able to speak, and complaining of nausea, vomiting, and abdominal pain. Patient also had nonproductive cough, fever, headache, and chest pain. Denies palpitations or racing heart. Granddaughter then brought patient to the ED for further evaluation. On the way patient had more episodes of vomiting. Granddaughter reports patient no longer confused, currently back to baseline mentation. Patient denies polyuria or dysuria. Reports has been compliant with home medications, though did not take her meds earlier today. In the ED pt was febrile up to 101.3, tachycardic up to 165, and tachypneic up to 24, with BP as low as 80/55. Labs were significant for patient testing positive for influenza type a, lactic acid 2.6 with follow-up 1.9, magnesium 1.2, and elevated BNP of 746. No leukocytosis. Stable H&H. Renal function baseline. CXR showed no acute cardiopulmonary findings. Initial EKG demonstrated AFib with RVR of 165 and repeat with AFib with RVR of 141, with ST and T-wave abnormalities in anterior lateral leads. Pt was treated with acetaminophen, diltiazem 50 mg IV, ondansetron, Zosyn, IVF, Tamiflu, and started on a diltiazem drip. Pt will be admitted to the hospital for treatment and further evaluation of AFib with RVR in the setting of influenza infection the viral sepsis AFib with RVR Patient was initially treated started on cardizem drip. She was transitioned to po cardizem. She was seen by cardiology who recommended increasing her dose of metoprolol to 50 mg daily. Her heart rate is now controlled. TSH 0.32. Acute hypoxic respiratory failure and viral sepsis due to influenza a infection weaned off of supplemental oxygen and has remained on room air for greater then 48 hours. she has remained afebrile since admission and her respiratory status has improved. She completed a course of tamiflu during her hospitalization. She also received steroids and was transitioned to po prednisone which she will be discharged to complete 5 day course. Blood cultures were obtained and have remained negative. Hypomagnesmia Mag 1.2 at time of presentation status post IV magnesium repeat magnesium normalized acute Lactic acidosis, resolved Lactic acid 2.6 at time of presentation, likely related to dehydration/metformin use. resolved after IVF in ED Time Attestation Discharge coordination time: Greater than 30 minutes Quality: Safe Use of Opioids Does Pt have an Active Cancer Diagnosis on the Problem List?: No Quality: Stroke Does the patient have a stroke diagnosis?: No Physical Exam Vital Signs: Vital Signs: Last Vital Signs Temp 98.2 F 10/19/23 07:12 Pulse 85 10/19/23 07:12 Resp 16 10/19/23 07:12 BP 157/83 H 10/19/23 07:12 Pulse Ox 94 10/19/23 07:12 O2 Del Method Room Air 10/19/23 07:12 O2 Flow Rate 1 10/17/23 07:22 BMI result Body Mass Index 24.8 Const: General: cooperative, comfortable, no acute distress, alert and awake Nutritional Appearance: average body habitus Resp: Other: course breath sounds; no wheeze Effort & Inspection: normal respiratory effort, no respiratory distress and no use of accessory muscles Cardio: Rhythm: abnormal rhythm irregularly irregular GI: Inspection: No distended Palpation (GI): Soft to palpation and nontender Neuro: Other: grossly nonfocal General: moves all extremities Extrem: Other: left AKA DS: Data Data Completed and Pending Labs on day of discharge: Laboratory Results - last 24 hr 10/18/23 10/18/23 10/18/23 07:43 11:39 16:24 POC Glucose 254 H 326 H 244 H 10/18/23 10/19/23 19:33 07:16 POC Glucose 297 H 239 H Preliminary micro results at discharge 10/14/23 15:20 Blood Culture - Preliminary Blood - Venous No growth after 48 hours. 10/14/23 14:51 Blood Culture - Preliminary Blood - Venous No growth after 48 hours. Discharge Plan Discharge Anticipated Discharge Date/Time: 10/19/23 10:15 Patient Disposition: Home, Self-Care Discharge Diagnosis: atrial fibrillation with rapid ventricular response influenza a Referrals: Charla Sandhu MD [Primary Care Provider] - 1 Week Javier Curiel MD [Physician] - 1 Week Discharge Medications: New metoprolol succinate 50 mg Tablet Extended Release 24 Hr 50 mg PO DAILY 30 Days Qty: 30 0RF Protocol: Hold for SBP/HR < HOLD for SBP < : 90 HOLD for HR < : 60 diltiazem HCl [Cardizem CD] 120 mg Capsule,Extended Release 24hr 120 mg PO DAILY Qty: 30 0RF Protocol: Hold for SBP/HR < HOLD for SBP < : 90 HOLD for HR < : 60 prednisone 20 mg tablet 20 mg PO DAILY 2 Days Qty: 2 0RF benzonatate 100 mg Capsule 100 mg PO TID PRN (Reason: Cough) Qty: 20 0RF Continued Xarelto 20 mg tablet 20 mg PO DAILY Qty: 30 0RF Rx Instructions: must administer with evening meal Januvia 100 mg tablet 100 mg PO DAILY Qty: 30 0RF donepezil 5 mg tablet 5 mg PO DAILY Qty: 30 0RF atorvastatin 20 mg tablet 20 mg PO DAILY Qty: 30 0RF gabapentin 400 mg Capsule 400 mg PO BEDTIME metformin 500 mg tablet 500 mg PO BIDWM ferrous sulfate [FeroSul] 325 mg (65 mg iron) tablet 650 mg PO QAM Discontinued valsartan 160 mg tablet 160 mg PO DAILY Qty: 30 0RF metoprolol succinate 25 mg tablet extended release 24 hr 25 mg PO QAM Discharge Orders: Discharge Order (Routine); Ordered 10/19/23 Ordered By: Elina Cho Activity on Discharge: As tolerated Stand Alone Forms: Patient Portal Discharge page Care Plan Goals: see below Health Concerns: atrial fibrillation with rapid ventricular response influenza a Plan of Treatment: for flu - completed course of tamiflu two more days of prednisone for atrial fibrillation - dose of metoprolol was increased to 50 mg and you have been started on cardizem call to schedule a follow up appointment with your PCP and cardiology Assessment: see discharge summary
--- NOTE | 2023-10-19 10:35 | MHC.CM.PN ---
Patient has been medically cleared for dc to home today, self care. CM met with Patient and her Granddaughter at bedside and addressed IMM with them (original was given to Patient and a copy has been placed on the chart.
--- NOTE | 2023-10-19 10:47 | P.CDIM_ITS ---
PROVIDER RESPONSE TEXT: To clarify, the appropriate diagnosis supported by the clinical indicators: Diabetes mellitus Type 2 with hyperglycemia QUERY TEXT: PHYSICIAN'S DOCUMENTATION REQUEST Date of Query: 10/19/2023 09:59 AM EST Patient Name: Silvana Moore Admit Date: 10/14/2023 Dear Elnia Cho, A review of the medical record indicates additional documentation may be needed. Please review below and update the documentation accordingly. Clinical Indicators: LABS: 326 H Humalog on sliding scale and monitor point of care, continue Diabetic diet. Please clarify the following regarding the lab findings: Diabetes mellitus Type 2 with hyperglycemia Other Other (explain) Clinically unable to determine (explain) Thank you, Yennifer Bundy, CCS, CDIS Use of terms such as suspected, likely, concern for, or probable (associated with a specific diagnosi s that is being evaluated, monitored, or treated as if it exists) are acceptable and can be coded in the inpatient se tting, when documented at the time of discharge. Please use your independent medical judgment in providing your response. THIS QUERY IS PART OF THE PERMANENT MEDICAL RECORD
--- NOTE | 2023-10-19 11:01 | PM.PNCARD ---
Subjective Subjective Date of Service: 10/19/23 Principal diagnosis: Atrial fibrillation Interval history: Patient with better rate control at this point time. No cardiac symptoms. Review of Systems Review of Systems Yes all other systems are reviewed and are negative Physical Exam Vital Signs: Last Vital Signs Temp 98.2 F 10/19/23 07:12 Pulse 85 10/19/23 07:12 Resp 16 10/19/23 07:12 BP 157/83 H 10/19/23 07:12 Pulse Ox 94 10/19/23 07:12 O2 Del Method Room Air 10/19/23 07:12 O2 Flow Rate 1 10/17/23 07:22 BMI result Body Mass Index 24.8 Const General: cooperative, comfortable, no acute distress, alert and awake Nutritional Appearance: overweight Orientation/consciousness: patient oriented x3 HEENT Head: Yes normocephalic and Yes atraumatic Neck Neck: Yes trachea midline, Yes supple and Yes no JVD Resp Effort & Inspection: normal respiratory effort Auscultation: wheezes Cardio Jugular venous distension: no JVD Rate: regular rate Rhythm: abnormal rhythm irregularly irregular Heart sounds: S1 normal heart sound present, S2 normal heart sound present, no click, no gallops, no murmurs and no rubs GI Auscultation: normal bowel sounds Skin General skin exam: no rashes or lesions noted Neuro General: patient oriented x3 and no focal motor deficits Extrem General: Yes no clubbing, cyanosis or edema Objective Labs and Meds 10/14/23 14:50 10/15/23 06:00 Lab results: Laboratory Results - last 24 hr 10/18/23 10/18/23 10/18/23 11:39 16:24 19:33 POC Glucose 326 H 244 H 297 H 10/19/23 07:16 POC Glucose 239 H Progress Note: A&P Assessment and plan (1) Atrial fibrillation with rapid ventricular response: Status: Acute Assessment and Plan: Atrial fibrillation controlled ventricular rate. Continue current therapy with Cardizem and metoprolol. Continue full oral anticoagulation Xarelto. Continue supportive care. At this point time will sign of the case. Thank you for allowing me to partake in the care Time Spent With Patient Time: Total time managing care of this patient today ____ minutes. Progress Note: Quality Stroke Does the patient have a stroke diagnosis?: No Procedures Date of Service Date of Service: 10/19/23
[2023-10-19 11:33] LABS: Glucose, Whole Blood 245 mg/dL (60-115)
== END 2023-10-19 11:44 | disposition home or self-care (01) | DRG 871 ==
LOC: HO.ED 15:10 → HO.EDOVER 19:00 → HO.IMC 20:19
PROVIDERS: Hospitalist; Physician Assistant Medical; Admitting Provider Student in an Organized Health Care Education/Training Program; Emergency Provider Emergency Medicine; PCP Pediatrics; Visit Provider Physician Assistant Medical
DX: A41.89 Other specified sepsis (principal); J96.01 Acute respiratory failure with hypoxia; E87.21 Acute metabolic acidosis; I48.19 Other persistent atrial fibrillation; J10.1 Influenza due to other identified influenza virus with other respiratory manifestations; I10 Essential (primary) hypertension; E83.42 Hypomagnesemia; E11.40 Type 2 diabetes mellitus with diabetic neuropathy, unspecified; E11.65 Type 2 diabetes mellitus with hyperglycemia; Z89.612 Acquired absence of left leg above knee; Z79.01 Long term (current) use of anticoagulants; Z79.84 Long term (current) use of oral hypoglycemic drugs; Z79.899 Other long term (current) drug therapy
CPT/HCPCS: 0241U; 36415; 71045; 80048; 82140; 82803; 82947; 83605; 83735; 83880; 84443; 84484; 85025; 87040; 93005; 94640; 99285; J2405; J2543; J2920; J3475

== ENCOUNTER → 2023-10-14 14:15 | Outpatient (BNV) | payer MEDICARE, MEDICAID, SELFPAY | PROVIDERS: Admitting Provider Student in an Organized Health Care Education/Training Program; Emergency Provider Emergency Medicine; Visit Provider Internal Medicine Cardiovascular Disease | DX: I48.0 Paroxysmal atrial fibrillation (principal) | CPT/HCPCS: 93010 ==

== ENCOUNTER → 2023-10-14 18:36 | Outpatient (BNV) | payer MEDICARE, MEDICAID, SELFPAY | PROVIDERS: Admitting Provider Student in an Organized Health Care Education/Training Program; Emergency Provider Emergency Medicine; Visit Provider Hospitalist | DX: I48.91 Unspecified atrial fibrillation (principal); J96.01 Acute respiratory failure with hypoxia; J11.1 Influenza due to unidentified influenza virus with other respiratory manifestations; A41.89 Other specified sepsis; E11.610 Type 2 diabetes mellitus with diabetic neuropathic arthropathy | CPT/HCPCS: 99223; 99232; 99233; 99238 ==

== ENCOUNTER → 2023-10-14 18:36 | Outpatient (BNV) | payer MEDICARE, MEDICAID, SELFPAY | PROVIDERS: Admitting Provider Student in an Organized Health Care Education/Training Program; Emergency Provider Emergency Medicine; PCP Pediatrics; Visit Provider Internal Medicine Cardiovascular Disease | DX: I48.91 Unspecified atrial fibrillation (principal) | CPT/HCPCS: 99222; 99233 ==

== ENCOUNTER 2023-10-30 15:00 | Outpatient (RCR) | payer MEDICARE, MEDICAID, SELFPAY ==
[2023-08-29 10:59] VITALS: BP 123/71; RESP 140
== END 2023-11-08 14:56 | disposition home or self-care (01) ==
LOC: HO.PT 15:00
PROVIDERS: PCP Pediatrics; Visit Provider Pediatrics
DX: Z89.612 Acquired absence of left leg above knee (principal)
CPT/HCPCS: 97110; 97112; 97161; 97530

== ENCOUNTER 2023-11-02 13:28 | Outpatient (AMB) | payer MEDICARE, MEDICAID, SELFPAY ==
--- NOTE | 2023-11-02 13:43 | MHC.OFFVIS ---
Intake Vital Signs 11/02/23 13:46 Height 5 ft 2 in BMI Reason not done Patient refused/unable BP 110/62 Blood Pressure Location Rt brachial Position Sitting Pulse 86 Intake Visit Reasons: [facility]/2-18/2-/AFIB w/RVR Flu (NS) Intake Note: PT is here to see TELEVISION [employer] REBU[employer]DER PT feels good Clinical Reimbursement Specialist Required: Yes Clinical Reimbursement Specialist Name: PATEL [id number] Allergies No Known Allergies Allergy (Verified 08/23/23 10:36) Medication List - Last Reconciled 11/02/23 by Trudi Gómez NP atorvastatin 20 mg PO DAILY benzonatate 100 mg PO TID PRN diltiazem HCl (Cardizem CD) 120 mg See Protocol PO DAILY donepezil 5 mg PO DAILY ferrous sulfate (FeroSul) 650 mg PO QAM gabapentin 400 mg PO BEDTIME metformin 500 mg PO BIDWM metoprolol succinate ER 50 mg See Protocol PO DAILY 30 days prednisone 20 mg PO DAILY 2 days rivaroxaban (Xarelto) 20 mg PO DAILY sitagliptin phosphate (Januvia) 100 mg PO DAILY HPI HPI Comments History of Present Illness Details 83-year-old female presents today with her daughter Patient was seen in the hospital by Dr. Curiel recently due to afib with rapid ventricular rates. Patient is a poor historian due to Alzheimer disease. Patient has not reported to her daughter any fast heart rates, palpitations, bleeding, chest pains, dizziness, or shortness of breath. Daughter states she notices patient gets confuse/forgetful when her heart rate was fast and since discharge has not. 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) Social History Household Members: Family Housing: Apartment Do you presently have visiting nurse or other home services: Yes Alcohol intake: never Patient Tobacco Use Status: Never used Tobacco Second Hand Smoke Exposure: No service: No Review of Systems Const Denies weakness ENT Denies dizziness Card Denies chest pain, Denies chest pain with activity, Denies syncope, Denies rapid heart rate, Denies pedal edema, Denies edema, Denies leg edema, Denies lightheadedness, Denies palpitations, Denies dyspnea, Denies dyspnea on exertion and Denies orthopnea Resp Denies cough, Denies dyspnea and Denies dyspnea on exertion GI Denies hematochezia and Denies change in stool character Musc Denies abnormal gait, Denies muscle cramps, Denies muscle weakness, Denies numbness, Denies radiating pain into limb and Denies tingling Neuro Denies abnormal gait, Denies dizziness, Denies syncope, Denies numbness, Denies tingling and Denies weakness Endo Denies palpitations Physical Exam Vital Signs: Last Vital Signs Pulse 86 11/02/23 13:46 BP 110/62 11/02/23 13:46 Const General: healthy appearing and no acute distress Orientation/consciousness: patient oriented x3 HEENT Head: Yes normal to inspection Eyes General: appearance normal, both eyes and all related structures Neck Neck: Yes normal visual inspection Chest Chest palpation & inspection: normal inspection of the chest Resp Effort & Inspection: normal respiratory effort Auscultation: clear to auscultation bilaterally Cardio Jugular venous distension: no JVD Palpation: normal PMI Rate: regular rate Rhythm: regular rhythm Heart sounds: S1 normal heart sound present, S2 normal heart sound present, no click, no gallops, no murmurs and no rubs GI Inspection: Yes normal to inspection Palpation (GI): Soft to palpation Skin General skin exam: no rashes or lesions noted Neuro General: patient oriented x3 Extrem General: Yes normal to inspection Psych Appearance: grossly normal Assessment & Plan Assessment & Plan (1) Atrial fibrillation: Code(s): I48.91 - Unspecified atrial fibrillation (2) Hypertension: Code(s): I10 - Essential (primary) hypertension Plan Blood pressure within normal limits today. Will get holter to assess for atrial fibrillation burden and rates. Currently on xarelto, metoprolol, and diltiazem. Avoidance of stimulants discussed. Orders: Orders ECG holter monitor 48 hour Today I48.91 - Unspecified atrial fibrillation Coding Level of Care Code Est Pt Level 3 (81675) Diagnoses Atrial fibrillation I48.91 Hypertension I10
[2023-11-02 13:46] VITALS: BP 110/62; PULSE 86
== END 2023-11-02 14:16 | disposition home or self-care (01) ==
PROVIDERS: PCP Pediatrics; Visit Provider Nurse Practitioner
DX: I48.91 Unspecified atrial fibrillation (principal); I10 Essential (primary) hypertension
CPT/HCPCS: 99213

== ENCOUNTER → 2023-11-02 13:28 | Outpatient (BNVA) | payer MEDICARE, MEDICAID, SELFPAY | PROVIDERS: PCP Pediatrics; Visit Provider Nurse Practitioner | DX: I48.91 Unspecified atrial fibrillation (principal); I10 Essential (primary) hypertension | CPT/HCPCS: 99212 ==

== ENCOUNTER 2023-12-31 11:37 | Outpatient (AMB) | payer MEDICARE, MEDICAID, SELFPAY ==
--- NOTE | 2023-12-31 12:07 | MHC.OFFVIS ---
Vital Signs 12/31/23 12:09 12/31/23 12:10 Height 5 ft 2 in 5 ft 3 in BP 88/61 L Blood Pressure Location Lt brachial Lt brachial Position Sitting Sitting Pulse 84 Intake Visit Reasons: positive cologuard, colonoscopy screening Intake Note: New patient for Colonoscopy screening due a positive cologuard. Patient cc: diarrhea or soft stool on and off, poor appetite. Denies any other GI issues. 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 female with past medical history of AFib, hypertension, PID, AKA, diabetes, Alzheimer's is here today for pre colonoscopy screening.? Patient had positive Cologuard and was sent to us to get evaluated via colonoscopy. Patient has a history of AFib and currently is on Xarelto. 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 Recently diagnosed, hospitalized in September of 2023 for AFib with RVR. Patient denies any chest pain or shortness of breath. Patient denies any issues with anesthesia. Patient denies any gastrointestinal symptoms in the past or at present, however occasionally patient will have abdominal bloating and constipation, however for the most part patient is moving her bowels daily..? Denies any personal or family history of gastrointestinal disease, colon polyps, or CRC.? Negative for history of sleep apnea.? Denies any history of renal, pulmonary, or hepatic disease.?? No history of infectious? diseases like hepatitis A, B, C, HIV or tuberculosis.? 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) Social History Household Members: Family Housing: Apartment Do you presently have visiting nurse or other home services: Yes Alcohol intake: never Patient Tobacco Use Status: Never used Tobacco Second Hand Smoke Exposure: No service: No Review of Systems Const Denies weight gain and Denies weight loss ENT Reports no additional complaints, Denies dysphagia and Denies odynophagia Card Reports no additional complaints Resp Reports no additional complaints GI Denies abdominal pain, Denies belching, Denies melena, Reports bloating (Occasional), Denies change in bowel habits, Denies dysphagia, Denies excessive flatus, Denies dyspepsia, Denies heartburn, Denies diarrhea, Denies loose stools, Denies nausea, Denies odynophagia and Denies vomiting Reports no additional complaints Musc Reports no additional complaints Neuro Reports no additional complaints Psych Reports no additional complaints Endo Reports no additional complaints Physical Exam Vital Signs: Last Vital Signs Pulse 84 12/31/23 12:10 BP 88/61 L 12/31/23 12:10 Const Other: Patient is in the wheelchair. Right AKA General: healthy appearing, no acute distress and well developed Nutritional Appearance: well nourished Orientation/consciousness: oriented to person and oriented to place Limitations: wheelchair Resp Effort & Inspection: normal respiratory effort, able to speak in complete sentences, no tracheal deviation and symmetric chest movement Auscultation: clear to auscultation bilaterally Cardio Rate: regular rate GI Inspection: Yes normal to inspection and No distended Palpation (GI): Soft to palpation, not firm, nontender and No hepatosplenomegaly present Auscultation: normal bowel sounds General: Yes no CVA tenderness Back/Spine/Pelvis Back: no CVA tenderness Skin General skin exam: elasticity normal, turgor normal and dry skin Neuro General: oriented to person and oriented to place Psych Appearance: grossly normal Mental Status: mental status grossly normal Assessment & Plan Assessment & Plan (1) Positive colorectal cancer screening using Cologuard test: Code(s): R19.5 - Other fecal abnormalities Plan Patient denies any cardiac or respiratory symptoms.? Occasional postprandial abdominal bloating. Reports to have a bowel movement daily usually soft, occasionally loose stools. Denies any issues with anesthesia in the past.? Denies any history of sleep apnea.? No history infectious diseases in the past or present.? History of AFib, on Xarelto. Patient will be seen by Cardiology, spoke to Timothy RUIZ who will see patient tomorrow about risk stratification. We will need management for Xarelto, most likely holding for 48 hours before procedure. Patient was also put on Januvia. Will need to hold that day before procedure and day of the procedure.? No family or personal history of colon cancer or polyps.? Patient denies melena, hematochezia, unintentional weight loss or ribbon like stools.? Discussed at length the pre-procedure,? prep, diet & medications as well as what to expect prior, during and after the procedure.?? Stressed the importance of good bowel prep. ?Recommended the use of Vaseline or Calmoseptine OTC & baby wipes with bowel movements to promote comfort.? ?Both patient and her granddaughter verbalize understanding and agrees to plan of care.? Day were given the opportunity to ask questions and all questions answered.? We will see her after the procedure.? Medications: New bisacodyl (Dulcolax (bisacodyl)) take 4 tabs at noon the day before your colonoscopy 20 mg (4 x 5 mg) PO ONCE 1 day 4 tabs 0RF Z12.11 - Encounter for screening for malignant neoplasm of colon polyethylene glycol 3350 (Miralax) As directed by gastroenterology department at [facility] 238 grams PO ONCE 238 grams 0RF Z12.11 - Encounter for screening for malignant neoplasm of colon Coding Level of Care Code New Pt Level 3 (96584) Diagnoses Positive colorectal cancer screening using Cologuard test R19.5 Time Spent (min) 40 Comment 30 minutes spent with patient and additional 10 minutes spent reviewing her records
[2023-12-31 12:10] VITALS: BP 88/61; PULSE 84
== END 2023-12-31 13:14 | disposition home or self-care (01) ==
PROVIDERS: PCP Pediatrics; Visit Provider Nurse Practitioner Family
DX: R19.5 Other fecal abnormalities (principal)
CPT/HCPCS: 99203; 99213

== ENCOUNTER → 2023-12-31 11:37 | Outpatient (BNVA) | payer MEDICARE, MEDICAID, SELFPAY | PROVIDERS: PCP Pediatrics; Visit Provider Nurse Practitioner Family | DX: R19.5 Other fecal abnormalities (principal) | CPT/HCPCS: 99202 ==

== ENCOUNTER 2024-01-01 12:29 | Outpatient (AMB) | payer MEDICARE, MEDICAID, SELFPAY ==
[2024-01-01 12:49] VITALS: BP 120/60; PULSE 89; O2SAT 99
--- NOTE | 2024-01-01 12:49 | MHC.OFFVIS ---
Vital Signs 01/01/24 12:49 Height 5 ft 3 in BMI Reason not done Patient refused/unable BP 120/60 Blood Pressure Location Rt brachial Position Sitting Pulse 89 Pulse Source Pulse Oximeter Pulse Oximetry (%) 99 Oxygen Delivery Method Room Air Intake Visit Reasons: 2 mnth f/up holter/preop/Consuelo/colon Partner Alliance Manager Required: Yes Partner Alliance Manager Name: PATEL Wagner/Daughter.Form Sign Allergies No Known Allergies Allergy (Verified 01/01/24 13:28) Medication List - Last Reconciled 01/01/24 by Trudi Gómez NP atorvastatin 20 mg PO DAILY benzonatate 100 mg PO TID PRN bisacodyl (Dulcolax (bisacodyl)) 20 mg (4 x 5 mg) PO ONCE 1 day diltiazem HCl CD (Cardizem CD) 120 mg See Protocol PO DAILY donepezil 5 mg PO DAILY ferrous sulfate (FeroSul) 650 mg PO QAM gabapentin 400 mg PO BEDTIME metformin 500 mg PO BIDWM metoprolol succinate ER 50 mg See Protocol PO DAILY 30 days polyethylene glycol 3350 (Miralax) 238 grams PO ONCE prednisone 20 mg PO DAILY 2 days rivaroxaban (Xarelto) 20 mg PO DAILY sitagliptin phosphate (Januvia) 100 mg PO DAILY HPI Comments Details: 83-year-old female presents today with her daughter. Patient was seen in the hospital for atrial fibrillation with RVR. She is due for a colonoscopy soon for a positive Cologaurd. Patient is a poor historian due to Alzheimer disease. Patient has not reported to her daughter any fast heart rates, palpitations, bleeding, chest pains, dizziness, or shortness of breath. Denies any signs of bleeding. Daughter states she notices patient gets confuse/forgetful when her heart rate was fast and since discharge has not. [facility] Medical History Atrial fibrillation with rapid ventricular response Alzheimer disease Hypertension Diabetes Surgical History 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) Social History Household Members: Family Housing: Apartment Do you presently have visiting nurse or other home services: Yes Alcohol intake: never Patient Tobacco Use Status: Never used Tobacco Second Hand Smoke Exposure: No service: No Review of Systems Const Denies weakness ENT Denies dizziness Card Denies chest pain, Denies chest pain with activity, Denies syncope, Denies rapid heart rate, Denies pedal edema, Denies edema, Denies leg edema, Denies lightheadedness, Denies palpitations, Denies dyspnea, Denies dyspnea on exertion and Denies orthopnea Resp Denies cough, Denies dyspnea and Denies dyspnea on exertion GI Denies hematochezia and Denies change in stool character Musc Denies abnormal gait, Denies muscle cramps, Denies muscle weakness, Denies numbness, Denies radiating pain into limb and Denies tingling Neuro Denies abnormal gait, Denies dizziness, Denies syncope, Denies numbness, Denies tingling and Denies weakness Endo Denies palpitations Physical Exam Vital Signs: Last Vital Signs Pulse 89 01/01/24 12:49 BP 120/60 01/01/24 12:49 Pulse Ox 99 01/01/24 12:49 Oxygen Delivery Method Room Air 01/01/24 12:49 Const General: healthy appearing and no acute distress Orientation/consciousness: patient oriented x3 HEENT Head: Yes normal to inspection Eyes General: appearance normal, both eyes and all related structures Neck Neck: Yes normal visual inspection Chest Chest palpation & inspection: normal inspection of the chest Resp Effort & Inspection: normal respiratory effort Auscultation: clear to auscultation bilaterally Cardio Jugular venous distension: no JVD Palpation: normal PMI Rate: regular rate Rhythm: abnormal rhythm Heart sounds: S1 normal heart sound present, S2 normal heart sound present, no click, no gallops, no murmurs and no rubs GI Inspection: Yes normal to inspection Palpation (GI): Soft to palpation Skin General skin exam: no rashes or lesions noted Neuro General: patient oriented x3 Extrem Other: Left AKA General: Yes normal to inspection Psych Appearance: grossly normal Office Procedures EKG Details: EKG today. [id number], Complete Assessment & Plan Assessment & Plan (1) Atrial fibrillation: Code(s): I48.91 - Unspecified atrial fibrillation Category: Medical (2) Pre-operative cardiovascular examination: Code(s): Z01.810 - Encounter for preprocedural cardiovascular examination (3) Hypertension: Code(s): I10 - Essential (primary) hypertension Category: Medical Plan EKG today atrial fibrillation. ST & T wave abnomality. Consier inerior and anterolateral ischemia. Seen on 01/16/2023. Pre-operative for colonoscopy due to postive cologaurd. Will send for echo and lexiscan for ischemic elavuation. Patient and daugther agree. Didnt do holter last visit to assess rate and rhythm. Blood pressure today within normal limits. Orders: Orders NM cardiolite stress test 01/01/24 I48.91 - Unspecified atrial fibrillation CA echo transthoracic complete 01/01/24 I10 - Essential (primary) hypertension CA lexiscan stress w pasha 01/01/24 I48.91 - Unspecified atrial fibrillation Coding Level of Care Code Est Pt Level 4 (86291) Diagnoses Atrial fibrillation I48.91 Pre-operative cardiovascular examination Z01.810 Hypertension I10 CPT Codes EKG - CPT: [id number], Complete ([id number])
== END 2024-01-01 13:25 | disposition home or self-care (01) ==
PROVIDERS: PCP Pediatrics; Visit Provider Nurse Practitioner
DX: I48.91 Unspecified atrial fibrillation (principal); I10 Essential (primary) hypertension; Z01.810 Encounter for preprocedural cardiovascular examination
CPT/HCPCS: 93010; 99214

== ENCOUNTER → 2024-01-01 12:29 | Outpatient (BNVA) | payer MEDICARE, MEDICAID, SELFPAY | PROVIDERS: PCP Pediatrics; Visit Provider Nurse Practitioner | DX: Z01.810 Encounter for preprocedural cardiovascular examination (principal); I48.91 Unspecified atrial fibrillation; I10 Essential (primary) hypertension | CPT/HCPCS: 93005; 99212 ==

== ENCOUNTER → 2024-01-02 10:42 | Outpatient (REF) | payer MEDICARE, MEDICAID, SELFPAY ==
--- NOTE | 2024-01-02 10:48 | HM_ITS ---
* Total monitoring time 2 days. * Underlying rhythm is atrial fibrillation. Average ventricular rate 95/Min. * About 13% of the time, rate > 100/Min. Max rate 139/Min. * Rare PVCs. * No significant pauses or AV blocks. * No patient markers or diary events. MTDD
== END ==
LOC: HO.CARD 10:42
PROVIDERS: PCP Pediatrics; Visit Provider Nurse Practitioner
DX: I48.91 Unspecified atrial fibrillation (principal)
CPT/HCPCS: 93225

== ENCOUNTER → 2024-01-02 10:48 | Outpatient (BNV) | payer MEDICARE, MEDICAID, SELFPAY | PROVIDERS: PCP Pediatrics; Visit Provider Internal Medicine | DX: I48.91 Unspecified atrial fibrillation (principal); I49.3 Ventricular premature depolarization | CPT/HCPCS: 93227 ==

== ENCOUNTER 2024-01-23 11:03 | Outpatient (REF) | payer MEDICARE, MEDICAID, SELFPAY ==
[2024-01-23 14:45] LABS: MANUAL DIFF FLAG NO
[2024-01-23 15:06] LABS: Iron 78 mcg/dL (30-160); Percent Iron Saturation 32 % (15-50); Total Iron Binding Capacity 242 mcg/dL (228-428); Unsaturated Iron Binding 164 ug/dL
[2024-01-23 15:20] LABS: Basophils Percent Auto 0.3 % (0-2); Eosinophils Absolute Auto 0.1 X10*3/uL (0.0-0.4); Eosinophils Percent Auto 1.4 % (0-4); Hematocrit 37.9 % (37.0-47.0); Hemoglobin 12.2 g/dl (12.0-16.0); Imm Gran Abs Auto 0.05 X10*3/uL (0.00-0.03); Imm Gran Pct Auto 0.7 % (0.0-0.4); Lymphocytes Percent Auto 27.5 % (20-40); Mean Corpuscular HGB Conc 32.2 g/dl (31.0-35.0); Mean Corpuscular Hemoglobin 28.7 pg (27.0-33.0); Mean Corpuscular Volume 89.2 fL (80.0-98.0); Mean Platelet Volume 10.2 fL (9.4-12.3); Monocytes Absolute Auto 0.6 X10*3/uL (0.1-1.2); Monocytes Percent Auto 8.7 % (2-11); Neutrophils Absolute Auto 4.6 x10*3/uL (2.0-8.3); Neutrophils Percent Auto 61.4 % (45-73); Platelet Count 315 X10*3/uL (160-400); Red Blood Count 4.25 X10*6/uL (4.20-5.50); Red Cell Distribution Width 13.8 % (11.0-16.0); White Blood Count 7.4 X10*3/uL (4.8-10.8)
[2024-01-23 15:43] LABS: Folate 7.9 ng/mL (> or = 4.0); Vitamin B12 338 pg/mL (200-900)
[2024-01-26 08:32] LABS: TS Negative Control Passed; TS Panel A 51; TS Panel B 19; TS Positive Control Passed; TSpotTB Positive (Negative)
== END 2024-01-23 11:04 | disposition home or self-care (01) ==
LOC: HO.CHCLDS 11:03
PROVIDERS: Visit Provider Pediatrics
DX: Z00.00 Encounter for general adult medical examination without abnormal findings (principal); E11.51 Type 2 diabetes mellitus with diabetic peripheral angiopathy without gangrene; I70.209 Unspecified atherosclerosis of native arteries of extremities, unspecified extremity; D50.0 Iron deficiency anemia secondary to blood loss (chronic)
CPT/HCPCS: 36415; 82607; 82746; 83540; 85025; 86481

== ENCOUNTER 2024-02-08 11:18 | Outpatient (REF) | payer MEDICARE, MEDICAID, SELFPAY ==
--- NOTE | ~2024-02-08 | XR_ITS ---
EXAMINATION: XR CHEST CLINICAL INFORMATION: Positive T-spine COMPARISON: Chest x-ray on 10/14/2023 TECHNIQUE: 2 views of the chest were obtained. FINDINGS: There is a possible small opacities/nodules. In the medial right upper lobe which was not present on the prior exam. The cardiomediastinal silhouette is normal. There are no additional areas of consolidation. No pleural effusions. XR/XR chest 2V IMPRESSION: Possible small opacities/nodules in the medial right upper lobe. Recommend CT scan of the chest for further evaluation.
== END 2024-02-08 11:19 | disposition home or self-care (01) ==
LOC: HO.XRAY 11:18
PROVIDERS: PCP Student in an Organized Health Care Education/Training Program; Visit Provider Student in an Organized Health Care Education/Training Program
DX: A15.0 Tuberculosis of lung (principal)
CPT/HCPCS: 71046

== ENCOUNTER → 2024-02-11 07:42 | Outpatient (REF) | payer MEDICARE, MEDICAID, SELFPAY ==
--- NOTE | ~2024-02-11 | NM_ITS ---
Lexiscan Myocardial perfusion study Indication: Preoperative cardiovascular evaluation Technique: The patient was brought in for a Lexiscan perfusion study on 02/11/2024 and was injected 0.4 mg of Lexiscan intravenously. Within a minute of this injection 25 mCi of sestamibi was given intravenously. Images were obtained using the SPECT gamma camera interlaced with the gating device. Images were obtained in supine position. Resting perfusion study was performed on 02/13/2024. Patient was administered 25 mCi of sestamibi intravenously at rest. Images were then obtained in supine position. Images were processed with the software and compared side to side in short axis, horizontal long axis and vertical long axis views. Total DLP 118mGy-cm. Findings: Raw acquisition reviewed. Arms by the patient's side. The stress perfusion study showed no significant perfusion abnormality. Both uncorrected as well as CT attenuation corrected images were reviewed. The gated study shows normal LV systolic function with calculated LVEF of 58%. LV cavity is normal in size. The gated study shows normal wall thickening and contraction of segments. Resting study shows no significant perfusion abnormality. Gating at rest reveals normal wall motion with ejection fraction at > 70%. The findings are consistent with no clear reversible or fixed perfusion defects. NM/NM cardiolite stress test Impression: 1. Myocardial perfusion imaging study shows likely normal myocardial perfusion. 2. Gated LVEF is 58% during stress; > 70% during rest. 3. Transient ischemic dilatation not present. EKG component of the test reported separately.
--- NOTE | 2024-02-11 07:51 | CA_ITS ---
Transthoracic Echocardiogram Patient (Last, First, Middle): Silvana Moore, Gender: Female Date of : 1940 Age: 84 Procedure Date: 02/11/2024 Procedure Type: Transthoracic Echocardiogram Location: OP Height: 160.02 cm Weight: 72.58 kg BSA: 1.76 m2 Heart Rate: bpm BP: 120 / 60 mmHg Automatic Chief: BENEDICTO Referring MD: Trudi Gómez WOOD SASH AND FRAME CARPENTER Symptoms: I10 - Essential (primary) hypertension Study Quality: Fair ECG Rhythm: Atrial Fibrillation Conclusions: - The left ventricular systolic function is normal. The visually estimated ejection fraction is between 55-60%. - Suggestion of basal inferior hypokinesis in some views. - No obvious valvular pathology seen on this study. - Mild pulmonary hypertension is present. Findings Left Ventricle Normal left ventricular cavity size. The left ventricular systolic function is normal. The visually estimated ejection fraction is between 55-60%. Diastolic function is indeterminate on the basis of available data. There is mild septal asymmetric hypertrophy. Suggestion of basal inferior hypokinesis in some views. Right Ventricle Normal right ventricular cavity size. There is mildly decreased right ventricular systolic function. Atria The left atrium is mildly dilated. The right atrium is normal in size. Aortic Valve There is a normal trileaflet aortic valve. There is mild calcification of the aortic valve. There is no aortic valve stenosis. There is no aortic valve regurgitation. Mitral Valve There is mild mitral annular calcification. There is trace mitral valve regurgitation. There is no mitral valve stenosis. Pulmonic Valve The pulmonic valve is likely normal. Tricuspid Valve There is mild tricuspid valve regurgitation. Mild pulmonary hypertension is present. Great Vessels The asc aorta is normal in size. Small plaque is seen in the sinuses of Valsalva. Venous The inferior vena cava is normal in size and collapses greater than 50% with inspiration. Pericardium/Pleural There is no evidence of pericardial effusion. Prior Study Comparison No prior study available for comparison. Recommendations, Care & Conclusions No obvious valvular pathology seen on this study. Measurements 2D Linear Measurements IVSd: 1.21 0.6-0.9/0.6-1.0 cm LVIDd: 4.32 3.9-5.3/4.2-5.9 cm LVIDd Index: 2.45 2.4-3.2/2.2-3.1 cm/m2 LVIDs: 3.01 2.0-3.6 cm LVPWd: 1.00 0.7-1.1 cm Ao Root: 2.70 2.1-3.5 cm LA Diam: 4.20 2.7-3.8/3.0-4.0 cm LAIDs Index: 2.39 1.5-2.3 cm/m2 LV Mass: 205.20 67-162/88-224 g LV Mass Index: 116.59 43-95/49-115 g/m2 LVOT Diam: 2.00 3.0+(-)1.3 cm 2D Systolic Function EF 4C: 48.40 >55% EF 2C: 57.60 >55% EF BiP: 51.80 >55% Aortic Valve AoV Pk Gilles: 1.41 AoV Mn Gilles: 0.99 AoV VTI: 0.26 AoV Pk Grad: 8.00 Aov Mn Grad: 4.00 GEORGE Cont.VTI: 1.57 LVOT LVOT Pk Gilles: 0.69 LVOT Mn Gilles: 0.48 LVOT VTI: 0.13 LVOT Pk Grad: 2.00 LVOT Mn Grad: 1.00 LVOT Diam: 2.00 LVOT Area: 3.14 Right Ventricle TAPSE (mm): 15.00 TVS' Gilles: 10.40 Tricuspid Valve TR Pk Gilles: 3.58 TR Pk Grad: 51.00 RA Press: 3.00 RVSP: 54.00 Great Vessels Aorta Ao Root-2D: 2.70 2.0-3.7 cm Ao Asc: 3.10 2.1-3.4 cm Updated in Other Vendor System with Status of Final Prasanth Rodriges MD electronically signed on 02/11/2024 2:03:10 PM with status of Final
--- NOTE | 2024-02-11 07:51 | CA_ITS ---
Acquisition Time: 2024-02-11 08:36:33 Total Exercise Time: 00:02:00 Test Indications: Dyspnea AFIB Medications: SEE H Protocol: LEXISCAN Max HR: 122 BPM 88% of Pred: 138 BPM Max BP: 122/076 mmHG Max Work Load: 1.0 METS Pharmacological stress test with Lexiscan injection, while sitting and kicking her right leg, without anginal symptoms, without arrythmia, with normotensive response to injection, with nondiagnostic EKG for ischemia. Nuclear images pending. In recovery she reported headache/ abdominal cramping and was treated with Aminophylline 75mg IVP and caffinated soda to reverse lexiscan with improvement in symptom. Test reviewed with Dr Barlow. Referred By: Trudi Gómez Overread By: XOCHITL BLOUNT
== END ==
LOC: HO.CARD 07:42
PROVIDERS: PCP Pediatrics; Visit Provider Nurse Practitioner
DX: I10 Essential (primary) hypertension (principal); I48.91 Unspecified atrial fibrillation
CPT/HCPCS: 78452; 93017; 93306; A9500; J0280; J2785

== ENCOUNTER → 2024-02-11 07:51 | Outpatient (BNV) | payer MEDICARE, MEDICAID, SELFPAY | PROVIDERS: PCP Pediatrics; Visit Provider Internal Medicine | DX: Z01.810 Encounter for preprocedural cardiovascular examination (principal) | CPT/HCPCS: 78452; 93016; 93018; 93350 ==

== ENCOUNTER 2024-02-27 13:21 | Outpatient (REF) | payer MEDICARE, MEDICAID, SELFPAY ==
--- NOTE | ~2024-02-27 | CT_ITS ---
EXAMINATION: CT CHEST WITHOUT CONTRAST CLINICAL INFORMATION: Lung nodule on chest x-ray COMPARISON: Chest radiograph from February 07 TECHNIQUE: Multidetector volumetric CT imaging of the chest was done. Axial MIP volume rendering provided. Sagittal and coronal reformatted images were obtained. This CT examination was performed using dose optimization techniques as appropriate, variously including the following: *Automated exposure control *Adjustment of mA and/or kV according to patient size (this includes techniques or standardized protocols for targeted exams where dose is matched to indication/reason for exam; i.e. extremities or head) *Use of iterative reconstruction technique DLP: 116 mGy-cm FINDINGS: NETWORK CONTROL TECHNICIAN: Unremarkable LUNGS: The lungs are clear with no evidence of inflammation or nodules. MEDIASTINUM: Questionable nodule in the right thyroid gland, correlate with thyroid ultrasound. There is no mediastinal or hilar lymphadenopathy. CORONARY ARTERY CALCIFICATION: None visualized on this study. PLEURA: There is no pleural effusion. No pleural mass or thickening. AXILLA: No lymphadenopathy. UPPER ABDOMEN: Unremarkable. OSSEOUS STRUCTURES: Unremarkable. CT/CT chest wo IV con IMPRESSION: 1. No lung nodules. 2. Questionable nodule in the right thyroid gland. Fleischner guidelines were followed.
== END 2024-02-27 13:22 | disposition home or self-care (01) ==
LOC: HO.CT 13:21
PROVIDERS: Visit Provider Student in an Organized Health Care Education/Training Program
DX: R91.1 Solitary pulmonary nodule (principal); R76.11 Nonspecific reaction to tuberculin skin test without active tuberculosis
CPT/HCPCS: 71250

== ENCOUNTER 2024-04-04 13:33 | Outpatient (AMB) | payer MEDICARE, MEDICAID, SELFPAY ==
--- NOTE | 2024-04-04 13:56 | MHC.OFFVIS ---
Vital Signs 04/04/24 13:57 Height 5 ft 3 in Weight 160 lb BMI 28.3 BMI Reason not done Patient refused/unable BP 120/58 L Blood Pressure Location Rt brachial Position Sitting Pulse 98 Pulse Source Pulse Oximeter Intake Visit Reasons: follow up after tesint Posting Machine Operator Required: Yes Posting Machine Operator Name: GERMAIN GRIFFITH Allergies No Known Allergies Allergy (Verified 01/24/24 15:43) HPI Comments Details: 84-year-old female who presents today for a follow-up regarding preoperative clearance for colonoscopy. She reports she has been doing well. She denies any chest pain, shortness of breath, dizziness, palpitations, or fast heart rates. She reports compliance with her medication. Patient's granddaughter is transiently in today for her. Appropriate form signed. 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) Social History Household Members: Family Housing: Apartment Do you presently have visiting nurse or other home services: Yes Alcohol intake: never Patient Tobacco Use Status: Never used Tobacco Second Hand Smoke Exposure: No service: No Review of Systems Const Denies weakness ENT Denies dizziness Card Denies chest pain, Denies chest pain with activity, Denies syncope, Denies rapid heart rate, Denies pedal edema, Denies edema, Denies leg edema, Denies lightheadedness, Denies palpitations, Denies dyspnea, Denies dyspnea on exertion and Denies orthopnea Resp Denies cough, Denies dyspnea and Denies dyspnea on exertion GI Denies hematochezia and Denies change in stool character Musc Denies abnormal gait, Denies muscle cramps, Denies muscle weakness, Denies numbness, Denies radiating pain into limb and Denies tingling Neuro Denies abnormal gait, Denies dizziness, Denies syncope, Denies numbness, Denies tingling and Denies weakness Endo Denies palpitations Physical Exam Vital Signs: BMI result Body Mass Index 28.3 Const General: healthy appearing and no acute distress Orientation/consciousness: patient oriented x3 Limitations: wheelchair HEENT Head: Yes normal to inspection Eyes General: appearance normal, both eyes and all related structures Neck Neck: Yes normal visual inspection Chest Chest palpation & inspection: normal inspection of the chest Resp Effort & Inspection: normal respiratory effort Auscultation: clear to auscultation bilaterally Cardio Jugular venous distension: no JVD Palpation: normal PMI Rate: regular rate Rhythm: regular rhythm Heart sounds: S1 normal heart sound present, S2 normal heart sound present, no click, no gallops, no murmurs and no rubs GI Inspection: Yes normal to inspection Palpation (GI): Soft to palpation Skin General skin exam: no rashes or lesions noted Neuro General: patient oriented x3 Extrem Other: Left AKA General: Yes normal to inspection Psych Appearance: grossly normal Results Reviewed Results Reviewed: NM/NM cardiolite stress test Impression: 1. Myocardial perfusion imaging study shows likely normal myocardial perfusion. 2. Gated LVEF is 58% during stress; > 70% during rest. 3. Transient ischemic dilatation not present. Conclusions: - The left ventricular systolic function is normal. The visually estimated ejection fraction is between 55-60%. - Suggestion of basal inferior hypokinesis in some views. - No obvious valvular pathology seen on this study. - Mild pulmonary hypertension is present. Assessment & Plan Assessment & Plan (1) Atrial fibrillation with rapid ventricular response: Code(s): I48.91 - Unspecified atrial fibrillation Category: Medical (2) Hypertension: Code(s): I10 - Essential (primary) hypertension Category: Medical (3) Encounter for pre-operative cardiovascular clearance: Code(s): Z01.810 - Encounter for preprocedural cardiovascular examination Category: Medical Plan Myocardial perfusion images show likely normal myocardial perfusion. Echocardiogram showed normal LV systolic function and ejection fraction between 55 and 60%. There was suggestion of basal inferior hypokinesis in some views but myocardial imaging showed normal perfusion. Patient is on diltiazem 120 mg daily, metoprolol succinate 75 mg daily, and Xarelto 20 mg daily. May hold anticoagulation up to 48 hours before colonoscopy procedure. Discussed stroke risk with any time there is holding anticoagulation with atrial fibrillation. She is a low to intermediate cardiac risk for upcoming procedure on 04/11/2024 for colonoscopy. Patient reports understanding. Blood pressure is within acceptable range. Coding Level of Care Code Est Pt Level 4 (82937) Diagnoses Atrial fibrillation with rapid ventricular response I48.91 Hypertension I10 Encounter for pre-operative cardiovascular clearance Z01.810
[2024-04-04 13:57] VITALS: BP 120/58; PULSE 98; BMI 28.3
== END 2024-04-04 14:15 | disposition home or self-care (01) ==
PROVIDERS: PCP Pediatrics; Visit Provider Nurse Practitioner
DX: I48.91 Unspecified atrial fibrillation (principal); I10 Essential (primary) hypertension; Z01.810 Encounter for preprocedural cardiovascular examination
CPT/HCPCS: 99214

== ENCOUNTER → 2024-04-04 13:33 | Outpatient (BNVA) | payer MEDICARE, MEDICAID, SELFPAY | PROVIDERS: PCP Pediatrics; Visit Provider Nurse Practitioner | DX: Z01.810 Encounter for preprocedural cardiovascular examination (principal); I48.91 Unspecified atrial fibrillation; I10 Essential (primary) hypertension; Z79.01 Long term (current) use of anticoagulants; Z79.899 Other long term (current) drug therapy | CPT/HCPCS: 99212 ==

== ENCOUNTER 2024-04-06 10:02 | Inpatient (IN) | payer MEDICARE, MEDICAID, SELFPAY ==
[2024-04-06] VITALS (11 sets, daily range): BP systolic 115–164; BP diastolic 54–83; PULSE 72–127; RESP 16–20; TEMP 36.7–37.7; O2SAT 95–100; BMI 22.3
--- NOTE | 2024-04-06 | ECG_ITS ---
Test Reason : tachycardia Blood Pressure : / mmHG Vent. Rate : 123 BPM Atrial Rate : 000 BPM P-R Int : 000 ms QRS Dur : 078 ms QT Int : 314 ms P-R-T Axes : 000 025 233 degrees QTc Int : 449 ms Atrial fibrillation with rapid ventricular response Septal infarct (cited on or before 14-OCT-2023) Marked ST abnormality, possible inferior subendocardial injury Abnormal ECG When compared with ECG of 14-OCT-2023 14:19, T wave inversion now evident in Inferior leads Referred By: Generic ED Physician Electronically Signed By:MANOLO SRINIVASAN
--- NOTE | ~2024-04-06 | XR_ITS ---
EXAMINATION: XR CHEST CLINICAL INFORMATION: Cough COMPARISON: 02/08/2024 TECHNIQUE: Frontal view of the chest was obtained. FINDINGS: The patient is slightly rotated. Cardiomediastinal silhouette is stable. Mild bronchial wall thickening without dense consolidation. No pleural effusion or pneumothorax. XR/XR chest 1V IMPRESSION: Mild bronchial wall thickening suggesting small airways disease. No dense consolidation.
--- NOTE | 2024-04-06 10:39 | ED_ITS ---
HPI - General Adult General Chief complaint: Nausea/Vomiting/Diarrhea Stated complaint: Vomiting/Dizziness Time Seen by Provider: 04/06/24 10:38 Source: patient, family (patient's daughter) and cardiology technician (all interactions with this patient were facilitated with an [facility] pantograph machine set up operator) Mode of arrival: ambulatory Limitations: language barrier (all interactions with this patient were facilitated with an [facility] pantograph machine set up operator) History of Present Illness ED Provider: Bouchra Thomas PA-C HPI narrative: Patient is an 84 year old assigned female at with a history of HTN, PAD, atrial fib on Xarelto + Metoprolol + cardizem, presenting to the emergency department today with nausea, vomiting, diarrhea, and headache. Patient states that she has been sick since last night with nausea, vomiting, diarrhea, and headache. Patient denies any dizziness, lightheadedness, abdominal pain, fever, chills, blurry vision, double vision, loss of vision, chest pain, difficulty breathing, shortness of breath, back pain, night sweats, pain with urination, increased urinary frequency, increased urinary urgency, blood in her urine or stool, syncope or a near syncopal episode, recent trauma or falls, bowel incontinence, bladder incontinence, or any other complaints at this time. Onset (ago): day(s) (1) Relieving factors: none Exacerbating factors: none Associated symptoms: nausea/vomiting Treatments prior to arrival: none Related Data Home Medications ?Medication ?Instructions ?Recorded ?Confirmed gabapentin 400 mg capsule 400 mg PO BEDTIME 01/16/23 10/14/23 ferrous sulfate 325 mg (65 mg 650 mg PO DAILY 10/14/23 10/14/23 iron) tablet (FeroSul) donepezil 5 mg tablet 5 mg PO BEDTIME 04/06/24 linagliptin 5 mg tablet (Tradjenta) 5 mg QAM 04/06/24 metformin 1,000 mg tablet 1,000 mg PO BIDWM 04/06/24 pantoprazole 40 mg tablet,delayed 40 mg PO DAILY@0630 04/06/24 release Previous Rx's ?Medication ?Instructions ?Recorded atorvastatin 20 mg tablet 20 mg PO DAILY #30 tabs 01/08/23 rivaroxaban 20 mg tablet (Xarelto) 20 mg PO DAILY #30 tabs 01/08/23 diltiazem HCl 120 mg 120 mg PO DAILY #30 caps 10/19/23 capsule,extended release 24 hr (Cardizem CD) metoprolol succinate 50 mg 75 mg PO DAILY 30 days #45 tabs 03/10/24 tablet,extended release 24 hr Allergies Allergy/AdvReac Type Severity Reaction Status Date / Time No Known Allergies Allergy Verified 04/06/24 10:23 Review of Systems 2 Constitutional: Constitutional: Reports no additional constitutional complaints, Denies chills, Denies fever(s), Reports headache(s) and Denies night sweats Eyes: Eyes: Reports no additional eye complaints, Denies blurry vision, Denies change in vision, Denies diplopia, Denies eye discharge, Denies loss of vision and Denies eye pain ENT: Denies dizziness and Reports headache(s) Cardiovascular: Cardiovascular: Reports no additional cardiovascular complaints, Denies chest pain, Denies lightheadedness, Denies Loss of Consciousness and Denies dyspnea Respiratory: Respiratory: Reports no additional respiratory complaints and Denies dyspnea Gastrointestinal: Gastrointestinal: Reports no additional gastrointestinal complaints, Denies abdominal pain, Denies melena, Denies hematochezia, Denies change in bowel habits, Denies change in stool character, Reports diarrhea, Reports nausea and Reports vomiting Genitourinary: Genitourinary: Denies hematuria, Denies urinary frequency, Denies dysuria, Denies urinary incontinence, Denies urinary hesitancy and Denies urinary urgency Musculoskeletal: Musculoskeletal: Reports no additional musculoskeletal complaints, Denies numbness and Denies tingling Neurologic: Denies dizziness, Reports headache(s), Denies loss of vision, Denies numbness and Denies tingling Psychiatric: Psychiatric: Reports no additional psychiatric complaints Endocrine: Endocrine: Reports no additional endocrine complaints Hematologic/Lymphatic: Hematologic/Lymphatic: Reports no additional hematologic/lymphatic complaints Allergic/Immunologic: Allergic/Immunologic: Reports no additional allergic/immunologic complaints PMFSH Past Medical History Attestation statement: The following information was validated with the patient. 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) Social History Social History Household Members: Family Housing: Apartment Do you presently have visiting nurse or other home services: Yes Alcohol intake: never Patient Tobacco Use Status: Never used Tobacco Smoked in Last 30 Days: No Second Hand Smoke Exposure: No Use of substances other than those prescribed or required for medical reasons: No Advance Directives: No Advance Directives Information Provided: No Do you have a plan to hurt others: No Plan Nutrition Risks: No Nutritional Risk service: No Physical Exam ED Vital Signs: Vital Signs - 24 hr 04/06/24 10:21 04/06/24 10:53 04/06/24 12:15 Temperature 98.9 F 99.9 F Pulse Rate 114 H 100 115 H Respiratory Rate 16 19 17 Blood Pressure 164/65 H 115/74 153/83 H Pulse Oximetry 96 98 95 Oxygen Delivery Method Room Air Room Air 04/06/24 12:40 04/06/24 12:42 04/06/24 14:19 Temperature Pulse Rate 127 H 110 H 97 Respiratory Rate 18 19 20 Blood Pressure 148/77 H 161/80 H 131/67 Pulse Oximetry 96 98 Oxygen Delivery Method 04/06/24 14:27 Temperature 99.1 F Pulse Rate 108 H Respiratory Rate 19 Blood Pressure 137/61 Pulse Oximetry 96 Oxygen Delivery Method Room Air BMI result Body Mass Index 22.3 Const General: cooperative, no acute distress, alert and awake Nutritional Appearance: well nourished Orientation/consciousness: patient oriented x3 Limitations: no limitations [facility] Head: Yes normal to inspection and Yes atraumatic Ears: hearing grossly normal bilaterally and external ears normal General nose exam: Normal external nose present, no nasal discharge noted and no epistaxis Face and sinus: Yes normal facial exam, No abrasion and No laceration Mouth: Normal oral and palatal mucosa present, no drooling and no muffled voice Eyes General: appearance normal, both eyes and all related structures Periorbital: periorbital findings normal Eyelids: Yes eyelids normal Conjunctivae: conjunctivae normal Pupils: Equal, round and reactive pupils present EOM: EOMs intact bilaterally Neck Neck: Yes normal visual inspection, Yes full ROM and Yes no lymphadenopathy Chest Chest palpation & inspection: normal inspection of the chest Resp Effort & Inspection: normal respiratory effort and able to speak in complete sentences Cardio Rate: tachycardic Rhythm: abnormal rhythm irregularly irregular GI Inspection: Yes normal to inspection Neuro General: patient oriented x3 and moves all extremities Cranial nerves: Yes Equal, round and reactive pupils present Cognition (Neuro): normal cognition Extrem General: Yes normal to inspection, Yes full ROM and Yes capillary refill normal Psych Appearance: grossly normal Mental Status: mental status grossly normal Affect: normal affect Attitude: cooperative Thought process: Normal thought process present Thought content: Normal thought content present Insight: Good insight present (Psych) Medications Administered Generic Name Dose Route Start Last Admin Trade Name Freq PRN Reason Stop Dose Admin Dextrose/Sodium Chloride 1,000 mls @ 60 mls/hr 04/06/24 15:30 04/06/24 15:41 D5ns IVCONT 60 mls/hr .[id number] SAMPSON Administration Sodium Chloride 3 ml 04/06/24 16:00 04/06/24 16:13 0.9 % Sodium Chloride Flush 3 Ml Syringe IVFLUSH Not Given QSHIFT SAMPSON Discontinued Medications Generic Name Dose Route Start Last Admin Trade Name Freq PRN Reason Stop Dose Admin Acetaminophen 975 mg 04/06/24 13:01 04/06/24 13:26 Acetaminophen 325 Mg Tablet PO 04/06/24 13:02 975 mg ONCE ONE Administration Diltiazem HCl 120 mg 04/06/24 15:21 04/06/24 15:37 Diltiazem Hcl Cd 120 Mg Cap.Er.Deg PO 04/06/24 15:22 120 mg ONCE ONE Administration Protocol Sodium Chloride 1,000 mls @ 999 mls/hr 04/06/24 10:45 04/06/24 14:15 Ns IV 04/06/24 11:45 Infused .Q1H1M SAMPSON Infusion Magnesium Sulfate 2 gm in 50 mls @ 25 mls/hr 04/06/24 11:33 04/06/24 14:15 Magnesium Sulfate/H2o IV 04/06/24 13:32 Infused ONCE ONE Infusion Sodium Chloride 1,000 mls @ 999 mls/hr 04/06/24 14:30 04/06/24 15:30 Ns IV 04/06/24 15:30 Infused .Q1H1M SAM[facility]ON Infusion Ceftriaxone Sodium 1 gm/ 50 mls @ 100 mls/hr 04/06/24 14:33 04/06/24 15:54 Sodium Chloride IV 04/06/24 15:02 Infused ONCE ONE Infusion Metoprolol Tartrate 5 mg 04/06/24 12:00 04/06/24 12:39 Metoprolol Tartrate 5 Mg/5 Ml Vial IVPUSH 04/06/24 12:01 5 mg ONCE ONE Administration Protocol Ondansetron HCl 4 mg 04/06/24 10:38 04/06/24 11:07 Ondansetron Hcl 4 Mg/2 Ml Vial IVPUSH 04/06/24 10:39 4 mg ONCE ONE Administration Medical Decision Making Medical Decision Making MDM Narrative: Patient is an 84 year old assigned female at with a history of HTN, PAD, and atrial fib with RVR on Xarelto + Diltiazem + Metoprolol, presenting to the emergency department today with nausea, vomiting, diarrhea, headache, and cough. Patient's physical exam was as noted in the physical exam portion of this note. Patient's blood work showed a decreased magnesium of 1.2 but was otherwise unremarkable. Patient's EKG showed atrial fibrillation with RVR. Patient's chest x-ray showed mild bronchial wall thickening suggesting small airway disease. Patient's COVID-19 test was positive. Patient was given IV magnesium. I explained my physical exam findings as well as all test results to the patient and the patient's daughter. I answered all questions asked by the patient and the patient's daughter. Patient received an additional 5mg of IV Lopressor as well as 2 liters of IV fluids which decreased her heart rate some but she remained tachycardic. I spoke to the hospitalist team who agreed to admission. Patient's clinical presentation is not consistent with sepsis (@1435). Patient and the patient's daughter verbalized agreement and understanding with this treatment plan and admission. Differential Diagnosis Differential Diagnoses: The differential diagnosis associated with the presentation includes Pneumonia COVID-19 Atrial fibrillation with RVR Admission/Observation Consideration of admission/observation: Escalation of care including admission/observation considered Patient admitted. Consult Healthcare Provider Management of the patient was discussed with: Hospitalist (as noted in the MDM Rationale portion of this note.) Lab Data [facility] Lab Attestation statement: I reviewed the patient's lab results. My interpretation of these results are in the MDM Rationale portion of this note. 04/06/24 11:05 04/06/24 11:05 Labs: Lab Results 04/06/24 04/06/24 Range/Units 11:05 13:49 WBC 5.8 (4.8-10.8) X10*3/uL RBC 4.19 L (4.20-5.50) X10*6/uL Hgb 12.1 (12.0-16.0) g/dl Hct 36.7 L (37.0-47.0) % MCV 87.6 (80.0-98.0) fL MCH 28.9 (27.0-33.0) pg MCHC 33.0 (31.0-35.0) g/dl RDW 12.9 (11.0-16.0) % Plt Count 258 (160-400) X10*3/uL MPV 9.0 L (9.4-12.3) fL Immature Gran % (Auto) 0.3 (0.0-0.4) % Neut % (Auto) 66.6 (45-73) % Lymph % (Auto) 16.6 L (20-40) % Ray % (Auto) 15.6 H (2-11) % Eos % (Auto) 0.7 (0-4) % Baso % (Auto) 0.2 (0-2) % Lymph # (Auto) 1.0 L (1.2-4.9) X10*3/uL Ray # (Auto) 0.9 (0.1-1.2) X10*3/uL Eos # (Auto) 0.0 (0.0-0.4) X10*3/uL Baso # (Auto) 0.0 (0.0-0.2) X10*3/uL Abs Immat Gran (auto) 0.02 (0.00-0.03) X10*3/uL Absolute Neuts (auto) 3.9 (2.0-8.3) x10*3/uL Absolute Nucleated RBC 0.000 (0.0-0.012) X10*3/uL Nucleated RBC % (auto) 0.0 (0.0-0.2) /100WBC Sodium 141 (135-145) mmol/L Potassium 3.5 (3.3-5.1) mmol/L Chloride 100 (96-108) mmol/L Carbon Dioxide 28 (22-29) mmol/L Anion Gap 17 (12-20) BUN 17 H (9-16) mg/dL Creatinine 1.02 (0.5-1.4) mg/dL Estim Creat Clear Calc 36.6 Estimated GFR 52 Random Glucose 144 H (60-115) mg/dL Calcium 9.9 D (8.4-10.2) mg/dL Magnesium 1.2 L* (1.6-2.6) mg/dL Total Bilirubin 0.4 (0.0-1.0) mg/dL AST 15 (5-31) U/L ALT 6 (0-31) U/L Alkaline Phosphatase 65 (39-117) U/L Troponin I High Sens 21.2 H D 22.7 H (<3.5-17.0) ng/L Total Protein 7.9 (6.5-8.0) g/dL Albumin 4.3 (3.5-5.0) g/dL Lipase 12 (8-78) U/L Influenza Type A (PCR) NEGATIVE (Negative) Influenza Type B (PCR) NEGATIVE (Negative) RSV RNA Qual (PCR) NEGATIVE (Negative) SARS-CoV-2 RNA (RT-PCR) POSITIVE A (Negative) Independent Interpretation I performed an independent interpretation of an: EKG and Plain X-Ray Interpretation: My interpretation is in agreement with the radiologist's impression of this imaging study. - EXAMINATION: XR CHEST CLINICAL INFORMATION: Cough COMPARISON: 02/08/2024 TECHNIQUE: Frontal view of the chest was obtained. FINDINGS: The patient is slightly rotated. Cardiomediastinal silhouette is stable. Mild bronchial wall thickening without dense consolidation. No pleural effusion or pneumothorax. XR/XR chest 1V IMPRESSION: Mild bronchial wall thickening suggesting small airways disease. No dense consolidation. Dictated By: Kaushik Iqbal MD Signed By: Electronically signed by Kaushik Iqbal MD 04/06/24 1551 - Vent. Rate: 123 BPM Atrial Rate: 000 BPM P-R Int: 000 ms QRS Dur: 078 ms QT Int: 314 ms P-R-T Axes: 000 025 233 degrees QTc Int: 449 ms Atrial fibrillation with rapid ventricular response Septal infarct (cited on or before 14-OCT-2023) Marked ST abnormality, possible inferior subendocardial injury Abnormal ECG When compared with ECG of 14-OCT-2023 14:19, T wave inversion now evident in Inferior leads DD/ 1039 Radiology Impression Discussion of test interpretation with radiology: I have reviewed the radiologist's reading. Independent Historian Clinical information obtained from an independent historian. History obtained from or confirmed by: Other (patient's daughter provided additional history and confirmed the history provided by the patient.) Chronic Conditions Patient?s care impacted by: Hypertension Critical Care Time Critical Care Time Critical Care Time: Yes Total Critical Care Time: 48 Attestation: I spent 48 minutes of Critical Care Time with this patient. This does not include time spent on separately reported billable procedures. Discharge Plan Discharge Clinical Impression: Atrial fibrillation with rapid ventricular response, COVID-19, Hypomagnesemia Patient Disposition: Admitted As Inpatient
[2024-04-06] MEDS: ondansetron HCL 4 MG/2 ML VIAL IVPUSH (11:07)
[2024-04-06] MEDS: 0.9 % Sodium Chloride 1,000 ML 999 ML IV ×2 (11:07→14:29)
[2024-04-06 11:11] LABS: MANUAL DIFF FLAG NO
[2024-04-06 11:12] LABS: Basophils Percent Auto 0.2 % (0-2); Eosinophils Percent Auto 0.7 % (0-4); Hematocrit 36.7 % (37.0-47.0); Hemoglobin 12.1 g/dl (12.0-16.0); Imm Gran Abs Auto 0.02 X10*3/uL (0.00-0.03); Imm Gran Pct Auto 0.3 % (0.0-0.4); Lymphocytes Percent Auto 16.6 % (20-40); Mean Corpuscular Hemoglobin 28.9 pg (27.0-33.0); Mean Corpuscular Volume 87.6 fL (80.0-98.0); Monocytes Absolute Auto 0.9 X10*3/uL (0.1-1.2); Monocytes Percent Auto 15.6 % (2-11); Neutrophils Absolute Auto 3.9 x10*3/uL (2.0-8.3); Neutrophils Percent Auto 66.6 % (45-73); Platelet Count 258 X10*3/uL (160-400); Red Blood Count 4.19 X10*6/uL (4.20-5.50); Red Cell Distribution Width 12.9 % (11.0-16.0); White Blood Count 5.8 X10*3/uL (4.8-10.8)
[2024-04-06 11:33] LABS: Alanine Aminotransferase 6 U/L (0-31); Albumin Level 4.3 g/dL (3.5-5.0); Alkaline Phosphatase 65 U/L (39-117); Anion Gap 17 (12-20); Aspartate Amino Transferase 15 U/L (5-31); Bilirubin Total 0.4 mg/dL (0.0-1.0); Blood Urea Nitrogen 17 mg/dL (9-16); Calcium 9.9 mg/dL (8.4-10.2); Carbon Dioxide 28 mmol/L (22-29); Chloride 100 mmol/L (96-108); Creatinine Clr Calc Pharmacy 36.6; Estimated Glomerular Filt Rate 52; Glucose Random 144 mg/dL (60-115); Lipase 12 U/L (8-78); Magnesium 1.2 mg/dL (1.6-2.6); Potassium 3.5 mmol/L (3.3-5.1); Sodium 141 mmol/L (135-145); Total Protein 7.9 g/dL (6.5-8.0)
[2024-04-06] MEDS: Magnesium Sulfate/H2O 2 GM/50 ML PIGGYBACK IV (11:43)
[2024-04-06 11:56] LABS: Influenza A PCR NEGATIVE (Negative); Influenza B PCR NEGATIVE (Negative); Resp Syncy Virus RNA Qual PCR NEGATIVE (Negative); SARS COV2 PCR INHOUSE POSITIVE (Negative)
[2024-04-06 12:34] LABS: Troponin-I High Sensitivity 21.2 ng/L (<3.5-17.0)
[2024-04-06] MEDS: Metoprolol Tartrate 5 MG/5 ML VIAL IVPUSH (12:39)
[2024-04-06] MEDS: Acetaminophen 325 MG TABLET 975 MG PO (13:26)
[2024-04-06 14:12] LABS: Troponin-I High Sensitivity 22.7 ng/L (<3.5-17.0)
[2024-04-06] MEDS: cefTRIAXone sodium 1 GM in 0.9 % Sodium Chloride 50 ML IV (15:24)
--- NOTE | 2024-04-06 15:25 | PC.NURSE ---
this nurse took over patient care from [facility] at 1500, pt sleeping, woke to verbal stimulus, denies pain/discomfort at this time, gambling monitor intact-afib on monitor, ivf continue to run slowly, abx hung per order- per provider pt does not need blood cultures, call aleman within reach, family at bedside, will continue to monitor.
--- NOTE | 2024-04-06 15:26 | PM.IMHP ---
History of Present Illness Date of Service: 04/06/24 Chief Complaint: AMS, weakness An 84 years old lady with PMH of Afib on Xarelto, PAD, HYN who presents with 3 days of nausea, vomiting and diarrhea along with generalized weakness. The patient reports feeling sick for few days now. started as chills and feeling weak then worsened. reports chills but no documented fever. cough but denies chest pain, palpitations. In ED found to be in Afib w RVr and tested positive for Covid19 Admitted for further work up and treatment. 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) Social History Household Members: Family Housing: Apartment Do you presently have visiting nurse or other home services: Yes Alcohol intake: never Patient Tobacco Use Status: Never used Tobacco Smoked in Last 30 Days: No Second Hand Smoke Exposure: No Use of substances other than those prescribed or required for medical reasons: No Advance Directives: No Advance Directives Information Provided: No Do you have a plan to hurt others: No Plan service: No Meds Allergies Allergy/AdvReac Type Severity Reaction Status Date / Time No Known Allergies Allergy Verified 04/06/24 10:23 Active Medications: Current Medications Diltiazem HCl (Diltiazem Hcl Cd 120 Mg Cap.Er.Deg) 120 mg PO ONCE ONE; Protocol Stop: 04/06/24 15:22 Gabapentin (Gabapentin 100 Mg Capsule) 100 mg PO BEDTIME [facility] Sodium Chloride (Ns) 1,000 mls @ 999 mls/hr IV .Q1H1M [facility] Stop: 04/06/24 15:30 Last Admin: 04/06/24 14:29 Dose: 999 mls/hr Insulin Human Lispro (Insulin Lispro 100 Unit/Ml 3 Ml Vial) 0 unit SUBCUT QIDACHS [facility]; Protocol Rivaroxaban (Rivaroxaban 20 Mg Tablet) 20 mg PO DAILY [facility] Home Medications ?Medication ?Instructions ?Recorded ?Confirmed ?Last Taken ?Type gabapentin 400 mg capsule 400 mg PO BEDTIME 01/16/23 10/14/23 10/13/23 History ferrous sulfate 325 mg (65 mg 650 mg PO DAILY 10/14/23 10/14/23 10/14/23 History iron) tablet (FeroSul) donepezil 5 mg tablet 5 mg PO BEDTIME 04/06/24 Unknown History linagliptin 5 mg tablet (Tradjenta) 5 mg QAM 04/06/24 Unknown History metformin 1,000 mg tablet 1,000 mg PO BIDWM 04/06/24 Unknown History pantoprazole 40 mg tablet,delayed 40 mg PO DAILY@0630 04/06/24 Unknown History release Physical Exam Vital Signs and Narrative: Vital Signs: Last Vital Signs Temp 99.1 F 04/06/24 14:27 Pulse 108 H 04/06/24 14:27 Resp 19 04/06/24 14:27 BP 137/61 04/06/24 14:27 Pulse Ox 96 04/06/24 14:27 O2 Del Method Room Air 04/06/24 14:27 BMI result Body Mass Index 22.3 Const: Other: Constitutional : Awake with stimulation, not in distress Neck : Normal inspection, Supple Cardiovascular : tachycardia, irregular irregular, no JVP, no lower extremity edema Respiratory : good bilateral air entry, no crackles, wheezes or rhonchi Gastrointestinal: soft, lax, Normal bowel sounds, Non tender Skin : Warm, Dry Neurological : Alert with stimulation, No focal deficit Results Labs 04/06/24 11:05 04/06/24 11:05 Labs: Laboratory Results - last 24 hr 04/06/24 04/06/24 11:05 13:49 MCV 87.6 MCH 28.9 MCHC 33.0 RDW 12.9 Plt Count 258 MPV 9.0 L Immature Gran % (Auto) 0.3 Neut % (Auto) 66.6 Lymph % (Auto) 16.6 L [place] % (Auto) 15.6 H Eos % (Auto) 0.7 Baso % (Auto) 0.2 Lymph # (Auto) 1.0 L [place] # (Auto) 0.9 Eos # (Auto) 0.0 Baso # (Auto) 0.0 Abs Immat Gran (auto) 0.02 Absolute Neuts (auto) 3.9 Absolute Nucleated RBC 0.000 Nucleated RBC % (auto) 0.0 Anion Gap 17 Estim Creat Clear Calc 36.6 Estimated GFR 52 Random Glucose 144 H Calcium 9.9 D Magnesium 1.2 L* Total Bilirubin 0.4 AST 15 ALT 6 Alkaline Phosphatase 65 Troponin I High Sens 21.2 H D 22.7 H Total Protein 7.9 Albumin 4.3 Lipase 12 Influenza Type A (PCR) NEGATIVE Influenza Type B (PCR) NEGATIVE RSV RNA Qual (PCR) NEGATIVE SARS-CoV-2 RNA (RT-PCR) POSITIVE A Assessment and Plan (1) Hypomagnesemia: Status: Acute (2) COVID-19: Status: Acute (3) Atrial fibrillation with rapid ventricular response: Status: Acute (4) Acute metabolic encephalopathy: Status: Acute Plan An 84 years old lady with PMH of Afib on Xarelto, PAD, HYN who presents with 3 days of nausea, vomiting and diarrhea along with generalized weakness. Acute Covid infection complicated with acute metabolic encephalopathy Not hypoxic , no need for steroids IVF Zofran O2 supplement if needed No rule of remdisivir at this point Empirical Abx pending U.Cx recurrent reorientation Afib w RvR rate better controlled after IV MEtoprolol Start home Cardizem and Metoprolol Xarelto HLD, Statin DMII, Hold Metformin, SSI DVT PPx Xarelto The patient will need 2 overnight hospital stay for treatment of Covid pending improvement in mental status Quality Stroke Does the patient have a stroke diagnosis?: No VTE Prior VTE?: No VTE Risk Level:: Medical - moderate - high VTE Device Contraindication: Treatment Not Indicated VTE Drug Contraindication: Treatment Not Indicated
[2024-04-06] MEDS: dilTIAZem HCL CD 120 MG CAP.ER.DEG PO (15:37)
[2024-04-06] MEDS: Dextrose 5 % and 0.9 % NaCl 1,000 ML 60 ML IVCONT (15:41)
--- NOTE | 2024-04-06 15:45 | PC.NURSE ---
new ivf started per order, pt medicated per order
[2024-04-06 16:31] LABS: Glucose, Whole Blood 111 mg/dL (60-115)
--- NOTE | 2024-04-06 16:51 | PHA.MEDREC ---
Addendum entered by Smita Morales RPh 04/06/24 18:22: MED REC COMPLETE BY [facility] [employer], REVIEWED BY [facility] Original Note: Pharmacy Consult ? Medication Reconciliation Pharmacy has completed the medication reconciliation.
[2024-04-06 20:55] LABS: Glucose, Whole Blood 109 mg/dL (60-115)
[2024-04-06] MEDS: Gabapentin 100 MG CAPSULE PO (21:08)
[2024-04-07] VITALS (12 sets, daily range): BP systolic 87–164; BP diastolic 56–86; PULSE 74–97; RESP 12–28; TEMP 36.1–38.1; O2SAT 90–100
[2024-04-07] MEDS: Acetaminophen 325 MG TABLET 650 MG PO (05:30)
[2024-04-07 05:33] LABS: Hematocrit 29.3 % (37.0-47.0); Hemoglobin 9.6 g/dl (12.0-16.0); Mean Corpuscular HGB Conc 32.8 g/dl (31.0-35.0); Mean Corpuscular Volume 88.5 fL (80.0-98.0); Platelet Count 181 X10*3/uL (160-400); Red Blood Count 3.31 X10*6/uL (4.20-5.50); Red Cell Distribution Width 13.1 % (11.0-16.0); White Blood Count 5.3 X10*3/uL (4.8-10.8)
[2024-04-07 05:36] LABS: Appearance Urine Clear; Color Urine Yellow; Glucose Urine UA Negative (Negative); Leukocyte Esterase Urine Negative (Negative); Nitrite Urine Negative (Negative); PH 5.5 (5.0-9.0); Specific Gravity - Urine 1.015 (1.005-1.025); UMIC TRIGGER UACC YES; Urine Blood Negative (Negative); Urine Ketones Negative (Negative); Urine Protein 30 (1+) mg/dL (Neg-Trace)
[2024-04-07 05:41] LABS: Bacteria Urine None Seen (None Seen); Hyaline Casts Urine 0-2 /LPF (0-2); RBC Urine 0-2 /HPF (0-2); Squamous Epithelial Cell Urine 0-2 /HPF (0-2); WBC Urine 0-5 /HPF (0-5)
[2024-04-07 05:49] LABS: Anion Gap 11 (12-20); Blood Urea Nitrogen 13 mg/dL (9-16); Calcium 8.3 mg/dL (8.4-10.2); Carbon Dioxide 25 mmol/L (22-29); Chloride 107 mmol/L (96-108); Creatinine Clr Calc Pharmacy 43.5; Estimated Glomerular Filt Rate > 60; Glucose Random 159 mg/dL (60-115); Magnesium 1.5 mg/dL (1.6-2.6); Potassium 3.4 mmol/L (3.3-5.1); Sodium 140 mmol/L (135-145)
[2024-04-07 07:09] LABS: Glucose, Whole Blood 153 mg/dL (60-115)
[2024-04-07] MEDS: Insulin Lispro 100 UNIT/ML 3 ML VIAL SUBCUT ×2 (07:12→22:19)
[2024-04-07] MEDS: Magnesium Sulfate/H2O 2 GM/50 ML PIGGYBACK IV (07:46)
[2024-04-07] MEDS: Dextrose 5 % and 0.9 % NaCl 1,000 ML 60 ML IVCONT (07:47)
--- NOTE | 2024-04-07 07:49 | PC.NURSE ---
patient resting quietly in ED stretcher, patient respirations equal and unlabored, currently on 2l NC. patient appears to be in no acute distress. patient opens eyes to verbal stimuli, does not really engage in conversation. patient currently in afib, rate 70s-80s. VSS, skin dry ad intact. patient medicated per OCT. family at bedside
--- NOTE | 2024-04-07 08:12 | MHC.EDTECH ---
This tech went to introduce herself, pt sleeping, family member present, call aleman within reach.
[2024-04-07] MEDS: dilTIAZem HCL CD 120 MG CAP.ER.DEG PO (09:14)
[2024-04-07] MEDS: Metoprolol Succinate ER 25 MG TAB.ER.24H 75 MG PO (09:14)
[2024-04-07] MEDS: Rivaroxaban 20 MG TABLET PO (09:14)
--- NOTE | 2024-04-07 09:20 | PC.NURSE ---
patient sat up this morning and medicated per OCT. patient family at bedside stated that patients right arm appears swollen. BP cuff removed, IV flushed and patent. inpatient provider aware of concern. patient satting 99% on 2l,patient trial off of supplemental o2 satting 100%
--- NOTE | 2024-04-07 10:02 | PC.NURSE ---
patient placed back on 2l NC due to desat while sleeping 88%.
--- NOTE | 2024-04-07 10:39 | MHC.EDTECH ---
Pt given orange juice, call aleman within reach.
--- NOTE | 2024-04-07 11:58 | HO.PM.IMPN ---
Subjective Subjective Date of Service: 04/07/24 Interval History: seen and evaluated this morning tolerated clears last night no more vomiting spiked one fever overnight no other events Review of Systems weakness cough Nausea Review of Systems: Yes all other systems are reviewed and are negative Physical Exam Vital Signs: Vital Signs: Last Vital Signs Temp 98.3 F 04/07/24 11:26 Pulse 75 04/07/24 11:26 Resp 20 04/07/24 11:26 BP 101/81 04/07/24 11:26 Pulse Ox 98 04/07/24 11:26 O2 Del Method Nasal Cannula 04/07/24 11:26 O2 Flow Rate 2 04/07/24 11:26 BMI result Body Mass Index 22.3 Const: Other: Constitutional : more alert and interactive, not in distress Neck : Normal inspection, Supple Cardiovascular : tachycardia, irregular irregular, no JVP, no lower extremity edema Respiratory : good bilateral air entry, no crackles, wheezes or rhonchi Gastrointestinal: soft, lax, Normal bowel sounds, Non tender Skin : Warm, Dry Neurological : Alert , oriented to self , No focal deficit Objective Data Active Medications Acetaminophen (Acetaminophen 325 Mg Tablet) 650 mg PO Q6H PRN PRN Reason: Pain, Mild (Pain Scale 1-3), fever or headache Last Admin: 04/07/24 05:30 Dose: 650 mg Documented By: ALEJANDRO Calcium Carbonate (Calcium Carbonate 750 Mg Tab.Chew) 750 mg PO Q4H PRN PRN Reason: Heartburn Diltiazem HCl (Diltiazem Hcl Cd 120 Mg Cap.Er.Deg) 120 mg PO DAILY [facility]; Protocol Last Admin: 04/07/24 09:14 Dose: 120 mg Documented By: JUN Gabapentin (Gabapentin 100 Mg Capsule) 100 mg PO BEDTIME [facility] Last Admin: 04/06/24 21:08 Dose: 100 mg Documented By: ALEJANDRO Dextrose/Sodium Chloride (D5ns) 1,000 mls @ 60 mls/hr IVCONT .[id number] [facility] Last Infusion: 04/07/24 09:42 Dose: 60 mls/hr Documented By: JUN Ceftriaxone Sodium 1 gm/ (Sodium Chloride) 50 mls @ 100 mls/hr IV Q24H [facility] Insulin Human Lispro (Insulin Lispro 100 Unit/Ml 3 Ml Vial) 0 unit SUBCUT QIDACHS [facility]; Protocol Last Admin: 04/07/24 07:12 Dose: 2 unit Documented By: JUN Magnesium Hydroxide (Milk Of Magnesia 30 Ml Oral.Susp) 30 ml PO DAILY PRN PRN Reason: Constipation Melatonin (Melatonin 3 Mg Tablet) 6 mg PO BEDTIME PRN PRN Reason: Insomnia Metoprolol Succinate (Metoprolol Succinate Er 25 Mg Tab.Er.24h) 75 mg PO DAILY [facility]; Protocol Last Admin: 04/07/24 09:14 Dose: 75 mg Documented By: JUN Omeprazole (Omeprazole 20 Mg Capsule.Dr) 20 mg PO DAILY@0630 [facility] Ondansetron HCl (Ondansetron Hcl 4 Mg/2 Ml Vial) 4 mg IVPUSH Q8H PRN PRN Reason: Nausea and Vomiting Rivaroxaban (Rivaroxaban 20 Mg Tablet) 20 mg PO DAILY [facility] Last Admin: 04/07/24 09:14 Dose: 20 mg Documented By: JUN Sodium Chloride (0.9 % Sodium Chloride Flush 3 Ml Syringe) 3 ml IVFLUSH QSHIFT [facility] Last Admin: 04/07/24 07:19 Dose: Not Given Documented By: JUN Non-Admin Reason: IV Running Labs 04/07/24 05:28 04/07/24 05:28 Labs: Laboratory Results - last 24 hr 04/06/24 04/06/24 04/06/24 11:05 13:49 16:28 MCV MCH MCHC RDW Plt Count MPV Absolute Nucleated RBC Nucleated RBC % (auto) Anion Gap Estim Creat Clear Calc Estimated GFR POC Glucose 111 Random Glucose Calcium Magnesium Troponin I High Sens 21.2 H D 22.7 H Urine Color Urine Appearance Urine pH Ur Specific [place] Urine Protein Urine Glucose (UA) Urine Ketones Urine Blood Urine Nitrite Ur Leukocyte Esterase Urine RBC Urine WBC Ur Squamous Epith Cells Urine Bacteria Hyaline Casts 04/06/24 04/07/24 04/07/24 20:51 05:27 05:28 MCV 88.5 MCH 29.0 MCHC 32.8 RDW 13.1 Plt Count 181 D MPV 9.0 L Absolute Nucleated RBC 0.000 Nucleated RBC % (auto) 0.0 Anion Gap 11 L Estim Creat Clear Calc 43.5 Estimated GFR > 60 POC Glucose 109 Random Glucose 159 H Calcium 8.3 L D Magnesium 1.5 L Troponin I High Sens Urine Color Yellow Urine Appearance Clear Urine pH 5.5 Ur Specific [place] 1.015 Urine Protein 30 (1+) H Urine Glucose (UA) Negative Urine Ketones Negative Urine Blood Negative Urine Nitrite Negative Ur Leukocyte Esterase Negative Urine RBC 0-2 Urine WBC 0-5 Ur Squamous Epith Cells 0-2 Urine Bacteria None Seen Hyaline Casts 0-2 04/07/24 07:04 MCV MCH MCHC RDW Plt Count MPV Absolute Nucleated RBC Nucleated RBC % (auto) Anion Gap Estim Creat Clear Calc Estimated GFR POC Glucose 153 H Random Glucose Calcium Magnesium Troponin I High Sens Urine Color Urine Appearance Urine pH Ur Specific [place] Urine Protein Urine Glucose (UA) Urine Ketones Urine Blood Urine Nitrite Ur Leukocyte Esterase Urine RBC Urine WBC Ur Squamous Epith Cells Urine Bacteria Hyaline Casts Assessment and Plan (1) Acute metabolic encephalopathy: Status: Acute (2) Hypomagnesemia: Status: Acute (3) COVID-19: Status: Acute Plan An 84 years old lady with PMH of Afib on Xarelto, PAD, HYN who presents with 3 days of nausea, vomiting and diarrhea along with generalized weakness. Acute Covid infection complicated with acute metabolic encephalopathy Not hypoxic , no need for steroids con tinue IVF Zofran prn O2 supplement if needed No rule of remdisivir at this point Empirical Ceftriaxone recurrent reorientation Advance diet to bland Afib w RvR rate better controlled after IV MEtoprolol Start home Cardizem and Metoprolol Xarelto acute on chronic anemia Hb of 9.6 from baseline around 11 no bleeding noticed , likely dilutional check occult stool monitor H&H Acute Hypomagnesemia to give replacement and recheck HLD, Statin DMII, Hold Metformin, SSI DVT PPx Xarelto The patient will need overnight hospital stay for treatment of Covid pending improvement in mental status and monitoring blood level Quality Stroke Does the patient have a stroke diagnosis?: No VTE Prior VTE?: No VTE Risk Level:: Medical - moderate - high VTE Device Contraindication: Treatment Not Indicated VTE Drug Contraindication: Treatment Not Indicated
[2024-04-07 12:19] LABS: Glucose, Whole Blood 118 mg/dL (60-115)
--- NOTE | 2024-04-07 13:06 | MHC.CM.PN ---
Patient is Covid positive; CM spoke with Granddaughter/Tabitha at [phone] and original IMM will be mailed to her and a copy will be placed on the chart. Patient lives with her Son/HCP/Nicholas and she uses a w/c for mobility. Patient's Granddaughter is the [employer] (46 hours/week thru [employer]). Home/. said services is the goal and CM has initiated and will follow for dc planning.PCP is Dr. Sandhu.
--- NOTE | 2024-04-07 13:20 | PC.NURSE ---
patient IV came out when patient got up to commode, will attempt for second line
--- NOTE | 2024-04-07 15:11 | PC.NURSE ---
willple attempts at IV access, US guided IV requested
--- NOTE | 2024-04-07 15:45 | PC.NURSE ---
patient IV access secured, patient has 22# in the right hand. arm board applied for support
[2024-04-07] MEDS: 0.9 % Sodium Chloride 1,000 ML 999 ML IV (15:50)
--- NOTE | 2024-04-07 15:50 | PC.NURSE ---
patient noted to be hypotensive, remains at baseline mentation. inpatient attending aware, verbal order for Normal saline bolus. patient medicated per OCT.
[2024-04-07] MEDS: cefTRIAXone sodium 1 GM in 0.9 % Sodium Chloride 50 ML IV (15:59)
[2024-04-07 17:16] LABS: Glucose, Whole Blood 107 mg/dL (60-115)
--- NOTE | 2024-04-07 18:24 | PC.NURSE ---
patient resting quietly in bed, respirations equal and unlabored, skin dry and intact, patient has D5NS running at 60ml/hr. VSS. patient family at bedside.
[2024-04-07 21:55] LABS: Glucose, Whole Blood 155 mg/dL (60-115)
[2024-04-07] MEDS: Melatonin 3 MG TABLET 6 MG PO (22:19)
[2024-04-07] MEDS: Gabapentin 100 MG CAPSULE PO (22:19)
[2024-04-08] VITALS (10 sets, daily range): BP systolic 105–148; BP diastolic 56–73; PULSE 87–121; RESP 12–24; TEMP 36.1–38.8; O2SAT 91–99
--- NOTE | 2024-04-08 05:41 | PC.NURSE ---
pt resting comfortably throughout the night, call ash w/in reach
[2024-04-08] MEDS: Omeprazole 20 MG CAPSULE.DR PO (06:34)
[2024-04-08] MEDS: Dextrose 5 % and 0.9 % NaCl 1,000 ML 60 ML IVCONT (06:34)
--- NOTE | 2024-04-08 06:49 | PC.NURSE ---
pt incont, assist with washing, dressing and changing linens
[2024-04-08 07:01] LABS: Hematocrit 28.5 % (37.0-47.0); Hemoglobin 9.6 g/dl (12.0-16.0); Magnesium 1.7 mg/dL (1.6-2.6); Mean Corpuscular HGB Conc 33.7 g/dl (31.0-35.0); Mean Corpuscular Hemoglobin 29.1 pg (27.0-33.0); Mean Corpuscular Volume 86.4 fL (80.0-98.0); Platelet Count 163 X10*3/uL (160-400); Red Cell Distribution Width 13.1 % (11.0-16.0); White Blood Count 5.3 X10*3/uL (4.8-10.8)
[2024-04-08 07:03] LABS: Anion Gap 13 (12-20); Blood Urea Nitrogen 9 mg/dL (9-16); Calcium 8.1 mg/dL (8.4-10.2); Carbon Dioxide 21 mmol/L (22-29); Chloride 107 mmol/L (96-108); Creatinine Clr Calc Pharmacy 45.1; Estimated Glomerular Filt Rate > 60; Glucose Random 149 mg/dL (60-115); Potassium 3.5 mmol/L (3.3-5.1); Sodium 137 mmol/L (135-145)
[2024-04-08 07:16] LABS: Glucose, Whole Blood 136 mg/dL (60-115)
[2024-04-08] MEDS: Acetaminophen 325 MG TABLET 650 MG PO (07:16)
[2024-04-08] MEDS: dilTIAZem HCL CD 120 MG CAP.ER.DEG PO (07:16)
[2024-04-08] MEDS: Rivaroxaban 20 MG TABLET PO (07:16)
[2024-04-08] MEDS: Magnesium Oxide 400 MG TABLET PO ×2 (10:23→18:02)
[2024-04-08] MEDS: Magnesium Sulfate/H2O 2 GM/50 ML PIGGYBACK IV (10:23)
--- NOTE | 2024-04-08 11:18 | P.CDIM_ITS ---
PROVIDER RESPONSE TEXT: To clarify, the appropriate diagnosis supported by the clinical indicators: Persistent atrial fibrillation QUERY TEXT: PHYSICIAN'S DOCUMENTATION REQUEST Date of Query: 04/08/2024 09:10 AM EDT Patient Name: Silvana Moore Admit Date: 04/06/2024 Dear Bruno Borjas MD, A review of the medical record indicates additional documentation may be needed. Please review below and update the documentation accordingly. Clinical Indicators: Afib with RVR rate better controlled after IV metoprolol Start home Cardizem and Metoprolol Xarelto If possible, please provide further specificity regarding atrial fibrillation, such as: Paroxysmal atrial fibrillation Persistent atrial fibrillation Long lasting persistent atrial fibrillation Permanent atrial fibrillation Other (explain) Clinically unable to determine (explain) Thank you, Yennifer Bundy, CCS, CDIS Use of terms such as suspected, likely, concern for, or probable (associated with a specific diagnosi s that is being evaluated, monitored, or treated as if it exists) are acceptable and can be coded in the inpatient se tting, when documented at the time of discharge. Please use your independent medical judgment in providing your response. THIS QUERY IS PART OF THE PERMANENT MEDICAL RECORD
[2024-04-08 12:02] LABS: Glucose, Whole Blood 162 mg/dL (60-115)
--- NOTE | 2024-04-08 12:08 | P.PNIM_ITS ---
Subjective Subjective Date of Service: 04/08/24 Interval History: seen and evaluated this morning O2 sat dropped to early 90s , no hypoxia no more vomiting , tolerated PO no fever overnight no other events Review of Systems Review of Systems: Yes all other systems are reviewed and are negative Physical Exam 2 Vital Signs: Vital Signs: Last Vital Signs Temp 97.0 F 04/08/24 09:08 Pulse 99 04/08/24 08:52 Resp 12 04/08/24 08:52 BP 127/72 04/08/24 08:52 Pulse Ox 93 04/08/24 08:52 O2 Del Method Room Air 04/08/24 08:52 O2 Flow Rate 2 04/07/24 18:02 BMI result Body Mass Index 22.3 Const: Other: Constitutional : Sleepy in morning, got more alert and interactive, not in distress Neck : Normal inspection, Supple Cardiovascular : tachycardia, irregular irregular, no JVP, no lower extremity edema Respiratory : good bilateral air entry, no crackles, wheezes or rhonchi Gastrointestinal: soft, lax, Normal bowel sounds, Non tender Skin : Warm, Dry Neurological : Alert , oriented to self , No focal deficit Objective Data Active Medications Acetaminophen (Acetaminophen 325 Mg Tablet) 650 mg PO Q6H PRN PRN Reason: Pain, Mild (Pain Scale 1-3), fever or headache Last Admin: 04/08/24 07:16 Dose: 650 mg Documented By: VAISHNAVI Calcium Carbonate (Calcium Carbonate 750 Mg Tab.Chew) 750 mg PO Q4H PRN PRN Reason: Heartburn Diltiazem HCl (Diltiazem Hcl Cd 120 Mg Cap.Er.Deg) 120 mg PO DAILY [facility]; Protocol Last Admin: 04/08/24 07:16 Dose: 120 mg Documented By: VAISHNAVI Gabapentin (Gabapentin 100 Mg Capsule) 100 mg PO BEDTIME [facility] Last Admin: 04/07/24 22:19 Dose: 100 mg Documented By: ZUHAIR Ceftriaxone Sodium 1 gm/ (Sodium Chloride) 50 mls @ 100 mls/hr IV Q24H [facility] Last Infusion: 04/07/24 17:09 Dose: Infused Documented By: JUN Dextrose/Sodium Chloride (D5ns) 1,000 mls @ 60 mls/hr IVCONT .[id number] [facility] Last Admin: 04/08/24 06:34 Dose: 60 mls/hr Documented By: ZUHAIR Insulin Human Lispro (Insulin Lispro 100 Unit/Ml 3 Ml Vial) 0 unit SUBCUT QIDACHS [facility]; Protocol Last Admin: 04/08/24 07:13 Dose: Not Given Documented By: VAISHNAVI Non-Admin Reason: No Insulin Coverage Magnesium Hydroxide (Milk Of Magnesia 30 Ml Oral.Susp) 30 ml PO DAILY PRN PRN Reason: Constipation Magnesium Oxide (Magnesium Oxide 400 Mg Tablet) 400 mg PO BIDPC [facility] Last Admin: 04/08/24 10:23 Dose: 400 mg Documented By: LITTLE Melatonin (Melatonin 3 Mg Tablet) 6 mg PO BEDTIME PRN PRN Reason: Insomnia Last Admin: 04/07/24 22:19 Dose: 6 mg Documented By: ZUHAIR Metoprolol Succinate (Metoprolol Succinate Er 25 Mg Tab.Er.24h) 75 mg PO BEDTIME [facility]; Protocol Omeprazole (Omeprazole 20 Mg Capsule.Dr) 20 mg PO DAILY@0630 [facility] Last Admin: 04/08/24 06:34 Dose: 20 mg Documented By: ZUHAIR Ondansetron HCl (Ondansetron Hcl 4 Mg/2 Ml Vial) 4 mg IVPUSH Q8H PRN PRN Reason: Nausea and Vomiting Rivaroxaban (Rivaroxaban 20 Mg Tablet) 20 mg PO DAILY [facility] Last Admin: 04/08/24 07:16 Dose: 20 mg Documented By: VAISHNAVI Sodium Chloride (0.9 % Sodium Chloride Flush 3 Ml Syringe) 3 ml IVFLUSH QSHIFT [facility] Last Admin: 04/08/24 07:19 Dose: Not Given Documented By: VAISHNAVI Non-Admin Reason: IV Running Labs 04/08/24 06:16 04/08/24 06:16 Labs: Laboratory Results - last 24 hr 04/07/24 04/07/24 04/07/24 12:14 17:11 21:50 MCV MCH MCHC RDW Plt Count MPV Absolute Nucleated RBC Nucleated RBC % (auto) Anion Gap Estim Creat Clear Calc Estimated GFR POC Glucose 118 H 107 155 H Random Glucose Calcium Magnesium 04/08/24 04/08/24 04/08/24 06:16 07:12 08:58 MCV 86.4 MCH 29.1 MCHC 33.7 RDW 13.1 Plt Count 163 MPV 10.0 Absolute Nucleated RBC 0.000 Nucleated RBC % (auto) 0.0 Anion Gap 13 Estim Creat Clear Calc 45.1 Estimated GFR > 60 POC Glucose 136 H 162 H Random Glucose 149 H Calcium 8.1 L Magnesium 1.7 Assessment and Plan (1) Acute metabolic encephalopathy: Status: Acute (2) Hypomagnesemia: Status: Acute (3) COVID-19: Status: Acute Plan An 84 years old lady with PMH of Afib on Xarelto, PAD, HYN who presents with 3 days of nausea, vomiting and diarrhea along with generalized weakness. Acute Covid infection complicated with acute metabolic encephalopathy and Viral sepsis on admission Not hypoxic , no need for steroids DC IVF Zofran prn O2 supplement if needed No rule of remdisivir at this point Empirical Ceftriaxone recurrent reorientation Advance diet , encourage PO intake O2 supplement as needed Afib w RvR rate better controlled Continue Cardizem and Metoprolol Xarelto 20mg acute on chronic anemia stable, Hb of 9.6 from baseline around 11 no bleeding noticed , likely dilutional check occult stool monitor H&H Acute Hypomagnesemia improved after replacement and recheck HLD, Statin DMII, Hold Metformin, SSI DVT PPx Xarelto The patient will need overnight hospital stay for treatment of Covid pending improvement in mental status and monitoring blood level Quality Stroke Does the patient have a stroke diagnosis?: No VTE Prior VTE?: No VTE Risk Level:: Medical - moderate - high VTE Device Contraindication: Treatment Not Indicated VTE Drug Contraindication: Treatment Not Indicated
[2024-04-08 12:29] LABS: Glucose, Whole Blood 130 mg/dL (60-115)
[2024-04-08] MEDS: cefTRIAXone sodium 1 GM in 0.9 % Sodium Chloride 50 ML IV (16:04)
[2024-04-08] MEDS: 0.9 % Sodium Chloride Flush 3 ML SYRINGE IVFLUSH ×2 (16:10→21:49)
[2024-04-08 16:45] LABS: Glucose, Whole Blood 130 mg/dL (60-115)
[2024-04-08 21:05] LABS: Glucose, Whole Blood 173 mg/dL (60-115)
[2024-04-08] MEDS: Gabapentin 100 MG CAPSULE PO (21:49)
[2024-04-08] MEDS: Insulin Lispro 100 UNIT/ML 3 ML VIAL SUBCUT (21:49)
[2024-04-08] MEDS: Metoprolol Succinate ER 25 MG TAB.ER.24H 75 MG PO (21:49)
[2024-04-08] MEDS: Melatonin 3 MG TABLET 6 MG PO (22:51)
[2024-04-09] VITALS (7 sets, daily range): BP systolic 92–162; BP diastolic 70–91; PULSE 97–122; RESP 14–20; TEMP 36.1–37.3; O2SAT 90–99
[2024-04-09] MEDS: Omeprazole 20 MG CAPSULE.DR PO (06:07)
[2024-04-09 06:52] LABS: Hematocrit 29.8 % (37.0-47.0); Mean Corpuscular HGB Conc 33.6 g/dl (31.0-35.0); Mean Corpuscular Hemoglobin 29.3 pg (27.0-33.0); Mean Corpuscular Volume 87.4 fL (80.0-98.0); Mean Platelet Volume 9.7 fL (9.4-12.3); Platelet Count 167 X10*3/uL (160-400); Red Blood Count 3.41 X10*6/uL (4.20-5.50); Red Cell Distribution Width 12.9 % (11.0-16.0)
[2024-04-09 07:01] LABS: Anion Gap 13 (12-20); Blood Urea Nitrogen 8 mg/dL (9-16); Calcium 8.5 mg/dL (8.4-10.2); Carbon Dioxide 25 mmol/L (22-29); Chloride 103 mmol/L (96-108); Creatinine Clr Calc Pharmacy 48.6; Estimated Glomerular Filt Rate > 60; Glucose Random 144 mg/dL (60-115); Potassium 3.2 mmol/L (3.3-5.1); Sodium 138 mmol/L (135-145)
[2024-04-09 07:18] LABS: Glucose, Whole Blood 143 mg/dL (60-115)
[2024-04-09] MEDS: 0.9 % Sodium Chloride 1,000 ML 999 ML IV (09:44)
[2024-04-09] MEDS: 0.9 % Sodium Chloride Flush 3 ML SYRINGE IVFLUSH ×2 (09:45→17:09)
[2024-04-09] MEDS: Potassium Chloride Packet 20 MEQ PACKET 40 MEQ PO (09:45)
[2024-04-09] MEDS: dilTIAZem HCL CD 120 MG CAP.ER.DEG PO (09:45)
[2024-04-09] MEDS: Magnesium Oxide 400 MG TABLET PO ×2 (09:45→18:36)
[2024-04-09] MEDS: Rivaroxaban 20 MG TABLET PO (09:45)
--- NOTE | 2024-04-09 09:53 | P.PNIM_ITS ---
Subjective Subjective Date of Service: 04/09/24 Interval History: seen and evaluated this morning no hypoxia Tolerating more PO HR elevated 110-130s no other events Review of Systems Review of Systems: Yes all other systems are reviewed and are negative Physical Exam 2 Vital Signs: Vital Signs: Last Vital Signs Temp 97.0 F 04/09/24 08:00 Pulse 113 H 04/09/24 08:00 Resp 20 04/09/24 08:00 BP 149/70 H 04/09/24 08:00 Pulse Ox 94 04/09/24 08:00 O2 Del Method Room Air 04/09/24 08:00 O2 Flow Rate 2 04/08/24 16:00 BMI result Body Mass Index 22.3 Const: Other: Constitutional : Sleepy in morning, got more alert and interactive, not in distress Neck : Normal inspection, Supple Cardiovascular : tachycardia, irregular irregular, no JVP, no lower extremity edema Respiratory : good bilateral air entry, no crackles, wheezes or rhonchi Gastrointestinal: soft, lax, Normal bowel sounds, Non tender Skin : Warm, Dry Neurological : Alert , oriented to self , No focal deficit Objective Data Active Medications Acetaminophen (Acetaminophen 325 Mg Tablet) 650 mg PO Q6H PRN PRN Reason: Pain, Mild (Pain Scale 1-3), fever or headache Last Admin: 04/08/24 07:16 Dose: 650 mg Documented By: VAISHNAVI Calcium Carbonate (Calcium Carbonate 750 Mg Tab.Chew) 750 mg PO Q4H PRN PRN Reason: Heartburn Diltiazem HCl (Diltiazem Hcl Cd 120 Mg Cap.Er.Deg) 120 mg PO DAILY [facility]; Protocol Last Admin: 04/08/24 07:16 Dose: 120 mg Documented By: VAISHNAVI Gabapentin (Gabapentin 100 Mg Capsule) 100 mg PO BEDTIME [facility] Last Admin: 04/08/24 21:49 Dose: 100 mg Documented By: EDGARDO Ceftriaxone Sodium 1 gm/ (Sodium Chloride) 50 mls @ 100 mls/hr IV Q24H [facility] Last Infusion: 04/08/24 16:42 Dose: Infused Documented By: LITTLE Magnesium Sulfate (Magnesium Sulfate/H2o) 2 gm in 50 mls @ 25 mls/hr IV ONCE ONE Stop: 04/09/24 11:37 Insulin Human Lispro (Insulin Lispro 100 Unit/Ml 3 Ml Vial) 0 unit SUBCUT QIDACHS [facility]; Protocol Last Admin: 04/09/24 09:00 Dose: Not Given Documented By: RUPERT Non-Admin Reason: No Insulin Coverage Magnesium Hydroxide (Milk Of Magnesia 30 Ml Oral.Susp) 30 ml PO DAILY PRN PRN Reason: Constipation Magnesium Oxide (Magnesium Oxide 400 Mg Tablet) 400 mg PO BIDPC [facility] Last Admin: 04/08/24 18:02 Dose: 400 mg Documented By: LITTLE Melatonin (Melatonin 3 Mg Tablet) 6 mg PO BEDTIME PRN PRN Reason: Insomnia Last Admin: 04/08/24 22:51 Dose: 6 mg Documented By: EDGARDO Metoprolol Succinate (Metoprolol Succinate Er 100 Mg Tab.Er.24h) 100 mg PO DAILY [facility]; Protocol Omeprazole (Omeprazole 20 Mg Capsule.Dr) 20 mg PO DAILY@0630 [facility] Last Admin: 04/09/24 06:07 Dose: 20 mg Documented By: EDGARDO Ondansetron HCl (Ondansetron Hcl 4 Mg/2 Ml Vial) 4 mg IVPUSH Q8H PRN PRN Reason: Nausea and Vomiting Rivaroxaban (Rivaroxaban 20 Mg Tablet) 20 mg PO DAILY [facility] Last Admin: 04/08/24 07:16 Dose: 20 mg Documented By: AIDANOPEErnestina Sodium Chloride (0.9 % Sodium Chloride Flush 3 Ml Syringe) 3 ml IVFLUSH QSHIFT [facility] Last Admin: 04/08/24 21:49 Dose: 3 ml Documented By: EDGARDO Labs 04/09/24 06:20 04/09/24 06:20 Labs: Laboratory Results - last 24 hr 04/08/24 04/08/24 04/08/24 08:58 12:20 16:35 MCV MCH MCHC RDW Plt Count MPV Absolute Nucleated RBC Nucleated RBC % (auto) Anion Gap Estim Creat Clear Calc Estimated GFR POC Glucose 162 H 130 H 130 H Random Glucose Calcium 04/08/24 04/09/24 04/09/24 20:50 06:20 07:13 MCV 87.4 MCH 29.3 MCHC 33.6 RDW 12.9 Plt Count 167 MPV 9.7 Absolute Nucleated RBC 0.000 Nucleated RBC % (auto) 0.0 Anion Gap 13 Estim Creat Clear Calc 48.6 Estimated GFR > 60 POC Glucose 173 H 143 H Random Glucose 144 H Calcium 8.5 Assessment and Plan (1) Acute metabolic encephalopathy: Status: Acute (2) Hypomagnesemia: Status: Acute (3) COVID-19: Status: Acute (4) Atrial fibrillation with rapid ventricular response: Status: Acute Plan An 84 years old lady with PMH of Afib on Xarelto, PAD, HYN who presents with 3 days of nausea, vomiting and diarrhea along with generalized weakness. Afib w RvR increased to 110-130s Continue Cardizem and Metoprolol (increased to 100) Cardiology consult Xarelto lowered to 15 mg for low CrCl Acute Covid infection complicated with acute metabolic encephalopathy and Viral sepsis on admission Not hypoxic , no need for steroids Mental status improved to baseline DC IVF Zofran prn O2 supplement if needed DC Empirical Ceftriaxone ( 3 doses) recurrent reorientation Advance diet , encourage PO intake O2 supplement as needed acute on chronic anemia stable, Hb of 9.6 from baseline around 11 no bleeding noticed , likely dilutional check occult stool monitor H&H Acute Hypomagnesemia Give IV replacement and recheck HLD, Statin DMII, Hold Metformin, SSI DVT PPx Xarelto, The patient will need overnight hospital stay for treatment of Afib w RvR pending cardiology evaluation Quality Stroke Does the patient have a stroke diagnosis?: No VTE Prior VTE?: No VTE Risk Level:: Medical - moderate - high VTE Device Contraindication: Treatment Not Indicated VTE Drug Contraindication: Treatment Not Indicated
[2024-04-09 11:32] LABS: Glucose, Whole Blood 206 mg/dL (60-115)
[2024-04-09] MEDS: Magnesium Sulfate/H2O 2 GM/50 ML PIGGYBACK IV (11:35)
[2024-04-09] MEDS: Metoprolol Succinate ER 100 MG TAB.ER.24H PO (11:35)
[2024-04-09] MEDS: Insulin Lispro 100 UNIT/ML 3 ML VIAL SUBCUT ×2 (11:36→21:40)
--- NOTE | 2024-04-09 11:53 | MHC.CM.PN ---
EMR REVIEWED, PT TOLERATING MORE PO HOWEVER STILL W/ELEVATED HEART RATE, ANTIC PT WILL DC HOME W/[employer] [facility] [employer] TOMORROW 04/10 [facility] TRANSP[facility], CM WILL CONT TO FOLLOW DC NEEDS.
[2024-04-09 16:50] LABS: Glucose, Whole Blood 118 mg/dL (60-115)
[2024-04-09 20:34] LABS: Glucose, Whole Blood 169 mg/dL (60-115)
[2024-04-09] MEDS: Gabapentin 100 MG CAPSULE PO (21:40)
[2024-04-10] VITALS (7 sets, daily range): BP systolic 105–180; BP diastolic 63–84; PULSE 54–118; RESP 16–20; TEMP 36–37.2; O2SAT 94–98
[2024-04-10] MEDS: 0.9 % Sodium Chloride Flush 3 ML SYRINGE IVFLUSH ×3 (02:06→21:14)
[2024-04-10] MEDS: Omeprazole 20 MG CAPSULE.DR PO (06:07)
[2024-04-10 06:46] LABS: Hematocrit 32.3 % (37.0-47.0); Hemoglobin 10.8 g/dl (12.0-16.0); Mean Corpuscular HGB Conc 33.4 g/dl (31.0-35.0); Mean Corpuscular Hemoglobin 29.3 pg (27.0-33.0); Mean Corpuscular Volume 87.8 fL (80.0-98.0); Mean Platelet Volume 9.9 fL (9.4-12.3); Platelet Count 170 X10*3/uL (160-400); Red Blood Count 3.68 X10*6/uL (4.20-5.50); Red Cell Distribution Width 13.2 % (11.0-16.0)
[2024-04-10 06:50] LABS: Anion Gap 10 (12-20); Blood Urea Nitrogen 10 mg/dL (9-16); Calcium 8.4 mg/dL (8.4-10.2); Carbon Dioxide 28 mmol/L (22-29); Chloride 109 mmol/L (96-108); Creatinine Clr Calc Pharmacy 51.9; Estimated Glomerular Filt Rate > 60; Glucose Random 115 mg/dL (60-115); Magnesium 2.1 mg/dL (1.6-2.6); Potassium 3.4 mmol/L (3.3-5.1); Sodium 144 mmol/L (135-145)
[2024-04-10 07:22] LABS: Glucose, Whole Blood 133 mg/dL (60-115)
[2024-04-10] MEDS: Metoprolol Succinate ER 100 MG TAB.ER.24H PO (09:02)
[2024-04-10] MEDS: dilTIAZem HCL CD 120 MG CAP.ER.DEG PO (09:02)
[2024-04-10] MEDS: Rivaroxaban 15 MG TABLET PO (09:02)
[2024-04-10] MEDS: Magnesium Oxide 400 MG TABLET PO ×2 (09:02→17:27)
--- NOTE | 2024-04-10 10:19 | P.CONCA_ITS ---
History of Present Illness History of Present Illness Date of Service: 04/10/24 Chief complaint: Afib w RvR, Hypomagnesemia, Covid Narrative: This is a cardiology consultation regarding atrial fibrillation with rapid ventricular response. It seems that patient has currently in the hospital for COVID infection along with metabolic encephalopathy/viral sepsis. In this context, there was concern for atrial fibrillation with rapid rate. Patient herself denies any clear symptoms. No angina or shortness of breath or in fact anything cardiac sounding. Discussed with patient using mechanical engineering technician. Review of Systems 2 Review of Systems: Yes all other systems are reviewed and are negative Constitutional: Constitutional: Reports as per HPI and Reports no additional constitutional complaints Eyes: Eyes: Reports as per HPI and Denies no additional eye complaints ENT: Denies system reviewed and no additional complaints, except as documented and Reports as per HPI Cardiovascular: Cardiovascular: Reports as per HPI, Reports no additional cardiovascular complaints, Denies acrocyanosis, Denies cool extremities, Denies chest pain, Denies leg edema, Denies lightheadedness, Denies palpitations and Denies dyspnea Respiratory: Respiratory: Reports as per HPI, Denies no additional respiratory complaints and Denies dyspnea Gastrointestinal: Gastrointestinal: Reports as per HPI and Denies no additional gastrointestinal complaints Genitourinary: Genitourinary: Reports as per HPI Musculoskeletal: Musculoskeletal: Reports no additional musculoskeletal complaints and Reports as per HPI Integumentary/Breasts: Skin/Breast: Reports system reviewed and no additional complaints, except as docu Neurologic: Reports system reviewed and no additional complaints, except as documented and Reports as per HPI Psychiatric: Psychiatric: Reports no additional psychiatric complaints and Reports as per HPI Endocrine: Endocrine: Reports no additional endocrine complaints, Reports as per HPI and Denies palpitations Hematologic/Lymphatic: Hematologic/Lymphatic: Reports no additional hematologic/lymphatic complaints and Reports as per HPI Allergic/Immunologic: Allergic/Immunologic: Reports no additional allergic/immunologic complaints and Reports as per HPI [facility] Past Medical History Medical History Encounter for pre-operative cardiovascular clearance Atrial fibrillation with rapid ventricular response Alzheimer disease Hypertension Diabetes Family History Pertinent family history: No pertinent family history Surgical History Surgical History 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) Social History Social History Household Members: Family Housing: Apartment Do you presently have visiting nurse or other home services: Yes Alcohol intake: never Patient Tobacco Use Status: Never used Tobacco Second Hand Smoke Exposure: No service: No Meds Allergies Allergy/AdvReac Type Severity Reaction Status Date / Time No Known Allergies Allergy Verified 04/06/24 10:23 Active Medications: Current Medications Acetaminophen (Acetaminophen 325 Mg Tablet) 650 mg PO Q6H PRN PRN Reason: Pain, Mild (Pain Scale 1-3), fever or headache Last Admin: 04/08/24 07:16 Dose: 650 mg Calcium Carbonate (Calcium Carbonate 750 Mg Tab.Chew) 750 mg PO Q4H PRN PRN Reason: Heartburn Diltiazem HCl (Diltiazem Hcl Cd 120 Mg Cap.Er.Deg) 120 mg PO DAILY [facility]; Protocol Last Admin: 04/10/24 09:02 Dose: 120 mg Gabapentin (Gabapentin 100 Mg Capsule) 100 mg PO BEDTIME [facility] Last Admin: 04/09/24 21:40 Dose: 100 mg Insulin Human Lispro (Insulin Lispro 100 Unit/Ml 3 Ml Vial) 0 unit SUBCUT QIDACHS [facility]; Protocol Last Admin: 04/10/24 09:03 Dose: Not Given Magnesium Hydroxide (Milk Of Magnesia 30 Ml Oral.Susp) 30 ml PO DAILY PRN PRN Reason: Constipation Magnesium Oxide (Magnesium Oxide 400 Mg Tablet) 400 mg PO BIDPC [facility] Last Admin: 04/10/24 09:02 Dose: 400 mg Melatonin (Melatonin 3 Mg Tablet) 6 mg PO BEDTIME PRN PRN Reason: Insomnia Last Admin: 04/08/24 22:51 Dose: 6 mg Metoprolol Succinate (Metoprolol Succinate Er 100 Mg Tab.Er.24h) 100 mg PO DAILY [facility]; Protocol Last Admin: 04/10/24 09:02 Dose: 100 mg Omeprazole (Omeprazole 20 Mg Capsule.Dr) 20 mg PO DAILY@0630 [facility] Last Admin: 04/10/24 06:07 Dose: 20 mg Ondansetron HCl (Ondansetron Hcl 4 Mg/2 Ml Vial) 4 mg IVPUSH Q8H PRN PRN Reason: Nausea and Vomiting Rivaroxaban (Rivaroxaban 15 Mg Tablet) 15 mg PO DAILY [facility] Last Admin: 04/10/24 09:02 Dose: 15 mg Sodium Chloride (0.9 % Sodium Chloride Flush 3 Ml Syringe) [facility] Last Admin: 04/10/24 09:02 Dose: Not Given Home Medications ?Medication ?Instructions ?Recorded ?Confirmed ?Last Taken ?Type gabapentin 400 mg capsule 400 mg PO BEDTIME 01/16/23 04/06/24 10/13/23 History ferrous sulfate 325 mg (65 mg 650 mg PO DAILY 10/14/23 04/06/24 04/06/24 09:00 History iron) tablet (FeroSul) donepezil 5 mg tablet 5 mg PO BEDTIME 04/06/24 04/06/24 Unknown History linagliptin 5 mg tablet (Tradjenta) 5 mg PO DAILY 04/06/24 04/06/24 04/06/24 09:00 History metformin 1,000 mg tablet 1,000 mg PO BIDWM 04/06/24 04/06/24 04/06/24 09:00 History pantoprazole 40 mg tablet,delayed 40 mg PO DAILY@0630 04/06/24 04/06/24 04/06/24 09:00 History release rivaroxaban 20 mg tablet (Xarelto) 20 mg PO DAILY@1700 04/06/24 04/06/24 04/06/24 09:00 History Physical Exam 2 Vital Signs: Vital Signs: Last Vital Signs Temp 98.9 F 04/10/24 07:11 Pulse 118 H 04/10/24 07:11 Resp 18 04/10/24 07:11 BP 105/70 04/10/24 07:11 Pulse Ox 98 04/10/24 07:11 O2 Del Method Room Air 04/10/24 07:11 O2 Flow Rate 2 04/08/24 16:00 BMI result Body Mass Index 22.3 Const: General: comfortable and no acute distress O rientation/consciousness: patient oriented x3 HEENT: Other: Unremarkable Head: Yes normal to inspection Neck: Neck: Yes normal visual inspection Chest: Chest palpation & inspection: normal inspection of the chest Resp: Auscultation: clear to auscultation bilaterally Cardio: Palpation: normal PMI Heart sounds: S1 normal heart sound present, S2 normal heart sound present, no gallops, no murmurs and no rubs GI: Palpation (GI): Soft to palpation Back/Spine/Pelvis: Other: unremarkable Skin: General skin exam: no rashes or lesions noted Neuro: General: patient oriented x3 Extrem: General: Yes normal to inspection Psych: Mental Status: mental status grossly normal Objective Labs and Meds 04/10/24 06:03 04/10/24 06:03 Lab results: Laboratory Results - last 24 hr 04/09/24 04/09/24 04/09/24 11:21 16:37 20:29 WBC RBC Hgb Hct MCV MCH MCHC RDW Plt Count MPV Absolute Nucleated RBC Nucleated RBC % (auto) Sodium Potassium Chloride Carbon Dioxide Anion Gap BUN Creatinine Estim Creat Clear Calc Estimated GFR POC Glucose 206 H 118 H 169 H Random Glucose Calcium Magnesium 04/10/24 04/10/24 06:03 07:15 WBC 6.0 RBC 3.68 L Hgb 10.8 L Hct 32.3 L MCV 87.8 MCH 29.3 MCHC 33.4 RDW 13.2 Plt Count 170 MPV 9.9 Absolute Nucleated RBC 0.000 Nucleated RBC % (auto) 0.0 Sodium 144 Potassium 3.4 Chloride 109 H Carbon Dioxide 28 Anion Gap 10 L BUN 10 Creatinine 0.72 Estim Creat Clear Calc 51.9 Estimated GFR > 60 POC Glucose 133 H Random Glucose 115 Calcium 8.4 Magnesium 2.1 ECG Interpretation: EKG with atrial fibrillation with rapid ventricular response at 123/Min; cannot exclude old septal infarct; inferior as well as anterolateral T inversions. Assessment and Plan (1) Atrial fibrillation with rapid ventricular response: Status: Acute (2) COVID-19: Status: Acute Plan Cardiac studies reviewed. Echocardiogram with LVEF 55-60%. Possible basal inferior hypokinesis in some views. Myocardial perfusion imaging study shows likely normal perfusion. Holter monitor shows atrial fibrillation with an average rate of 95/Min. About 13% of the time, rate is over 100/Min. Overall, persistent atrial fibrillation, COVID infection. Her rate is slightly fast but not profound. May add digoxin to the regimen. Procedures Date of Service Date of Service: 04/10/24
[2024-04-10] MEDS: Digoxin 0.25 MG TABLET PO ×3 (11:36→21:14)
[2024-04-10] MEDS: Insulin Lispro 100 UNIT/ML 3 ML VIAL SUBCUT ×2 (11:42→17:27)
[2024-04-10 11:50] LABS: Glucose, Whole Blood 201 mg/dL (60-115)
--- NOTE | 2024-04-10 14:17 | P.PNIM_ITS ---
Subjective Subjective Date of Service: 04/10/24 Interval History: No acute issues overnight. Rate remains elevated this a.m. 110 -120s Review of Systems Denies chest pain Denies shortness of breath Denies nausea vomiting diarrhea Denies fever chills Physical Exam 2 Vital Signs: Vital Signs: Last Vital Signs Temp 98.2 F 04/10/24 11:08 Pulse 112 H 04/10/24 11:08 Resp 18 04/10/24 11:08 BP 180/84 H 04/10/24 11:08 Pulse Ox 94 04/10/24 11:08 O2 Del Method Room Air 04/10/24 11:08 O2 Flow Rate 2 04/08/24 16:00 BMI result Body Mass Index 22.3 Const: Other: Awake alert no acute distress Resp: Other: Clear to auscultation bilaterally no rales rhonchi or wheezes Cardio: Other: No S4; positive S1-S2; no S3 murmurs rubs or gallops GI: Other: Soft nontender nondistended normoactive bowel sounds Extrem: Other: No edema bilaterally Objective Data Active Medications Acetaminophen (Acetaminophen 325 Mg Tablet) 650 mg PO Q6H PRN PRN Reason: Pain, Mild (Pain Scale 1-3), fever or headache Last Admin: 04/08/24 07:16 Dose: 650 mg Documented By: AIDANOPEErnestina Calcium Carbonate (Calcium Carbonate 750 Mg Tab.Chew) 750 mg PO Q4H PRN PRN Reason: Heartburn Digoxin (Digoxin 0.25 Mg Tablet) 0.25 mg PO Q6H [facility] Stop: 04/11/24 04:46 Last Admin: 04/10/24 11:36 Dose: 0.25 mg Documented By: ANDI Digoxin (Digoxin 0.125 Mg Tablet) 0.125 mg PO DAILY [facility] Diltiazem HCl (Diltiazem Hcl Cd 120 Mg Cap.Er.Deg) 120 mg PO DAILY [facility]; Protocol Last Admin: 04/10/24 09:02 Dose: 120 mg Documented By: ANDI Gabapentin (Gabapentin 100 Mg Capsule) 100 mg PO BEDTIME [facility] Last Admin: 04/09/24 21:40 Dose: 100 mg Documented By: RUPERT Insulin Human Lispro (Insulin Lispro 100 Unit/Ml 3 Ml Vial) 0 unit SUBCUT QIDACHS [facility]; Protocol Last Admin: 04/10/24 11:42 Dose: 4 unit Documented By: ANDI Magnesium Hydroxide (Milk Of Magnesia 30 Ml Oral.Susp) 30 ml PO DAILY PRN PRN Reason: Constipation Magnesium Oxide (Magnesium Oxide 400 Mg Tablet) 400 mg PO BIDPC [facility] Last Admin: 04/10/24 09:02 Dose: 400 mg Documented By: ANDI Melatonin (Melatonin 3 Mg Tablet) 6 mg PO BEDTIME PRN PRN Reason: Insomnia Last Admin: 04/08/24 22:51 Dose: 6 mg Documented By: EDGARDO Metoprolol Succinate (Metoprolol Succinate Er 100 Mg Tab.Er.24h) 100 mg PO DAILY [facility]; Protocol Last Admin: 04/10/24 09:02 Dose: 100 mg Documented By: ANDI Omeprazole (Omeprazole 20 Mg Capsule.Dr) 20 mg PO DAILY@0630 [facility] Last Admin: 04/10/24 06:07 Dose: 20 mg Documented By: KARINA Ondansetron HCl (Ondansetron Hcl 4 Mg/2 Ml Vial) 4 mg IVPUSH Q8H PRN PRN Reason: Nausea and Vomiting Rivaroxaban (Rivaroxaban 15 Mg Tablet) 15 mg PO DAILY [facility] Last Admin: 04/10/24 09:02 Dose: 15 mg Documented By: ANDI Sodium Chloride (0.9 % Sodium Chloride Flush 3 Ml Syringe) 3 ml IVFLUSH QSHIFT [facility] Last Admin: 04/10/24 09:02 Dose: Not Given Documented By: ANDI Non-Admin Reason: No Access Labs 04/10/24 06:03 04/10/24 06:03 Labs: Laboratory Results - last 24 hr 04/09/24 04/09/24 04/10/24 16:37 20:29 06:03 MCV 87.8 MCH 29.3 MCHC 33.4 RDW 13.2 Plt Count 170 MPV 9.9 Absolute Nucleated RBC 0.000 Nucleated RBC % (auto) 0.0 Anion Gap 10 L Estim Creat Clear Calc 51.9 Estimated GFR > 60 POC Glucose 118 H 169 H Random Glucose 115 Calcium 8.4 Magnesium 2.1 04/10/24 04/10/24 07:15 11:38 MCV MCH MCHC RDW Plt Count MPV Absolute Nucleated RBC Nucleated RBC % (auto) Anion Gap Estim Creat Clear Calc Estimated GFR POC Glucose 133 H 201 H Random Glucose Calcium Magnesium Assessment and Plan (1) Atrial fibrillation with rapid ventricular response: Status: Acute (2) COVID-19: Status: Acute Plan An 84 years old lady with PMH of Afib on Xarelto, PAD, HYN who presents with 3 days of nausea, vomiting and diarrhea along with generalized weakness. 1.Afib w RvR -as per cardiology dig load p.o. as ordered -Xarelto lowered to 15 mg for low CrCl -continue tele 2.Acute Covid infection complicated with acute metabolic encephalopathy and Viral sepsis on admission -sepsis resolved -Zofran prn/O2 supplement if needed 3.Acute on chronic anemia -hemoglobin stable -follow daily CBCs 4.Acute Hypomagnesemia -repleted and normalized -follow renals and divalent 5. DM 2 -acceptable control on current therapies -lispro correctional scale -add back therapies as clinically appropriate Xarelto, Full code Patient will require ongoing hospitalization to monitor rate response to oral digoxin load and specialty consultation Quality Stroke Does the patient have a stroke diagnosis?: No VTE Prior VTE?: No VTE Risk Level:: Medical - moderate - high VTE Device Contraindication: Treatment Not Indicated VTE Drug Contraindication: Treatment Not Indicated
[2024-04-10 15:14] LABS: Glucose, Whole Blood 155 mg/dL (60-115)
[2024-04-10 21:11] LABS: Glucose, Whole Blood 116 mg/dL (60-115)
[2024-04-10] MEDS: Gabapentin 100 MG CAPSULE PO (21:14)
[2024-04-10] MEDS: Melatonin 3 MG TABLET 6 MG PO (21:14)
[2024-04-10] MEDS: Acetaminophen 325 MG TABLET 650 MG PO (21:14)
[2024-04-11] VITALS (7 sets, daily range): BP systolic 109–166; BP diastolic 56–91; PULSE 56–97; RESP 18–20; TEMP 36.3–37.2; O2SAT 92–98
[2024-04-11] MEDS: Digoxin 0.25 MG TABLET PO (05:44)
[2024-04-11 06:16] LABS: MANUAL DIFF FLAG NO
[2024-04-11 06:23] LABS: Basophils Percent Auto 0.3 % (0-2); Eosinophils Percent Auto 0.6 % (0-4); Hematocrit 28.8 % (37.0-47.0); Hemoglobin 9.7 g/dl (12.0-16.0); Imm Gran Abs Auto 0.02 X10*3/uL (0.00-0.03); Imm Gran Pct Auto 0.6 % (0.0-0.4); Lymphocytes Percent Auto 30.5 % (20-40); Mean Corpuscular HGB Conc 33.7 g/dl (31.0-35.0); Mean Corpuscular Hemoglobin 29.5 pg (27.0-33.0); Mean Corpuscular Volume 87.5 fL (80.0-98.0); Mean Platelet Volume 10.9 fL (9.4-12.3); Monocytes Absolute Auto 0.3 X10*3/uL (0.1-1.2); Monocytes Percent Auto 10.5 % (2-11); Neutrophils Absolute Auto 1.8 x10*3/uL (2.0-8.3); Neutrophils Percent Auto 57.5 % (45-73); Platelet Count 138 X10*3/uL (160-400); Red Blood Count 3.29 X10*6/uL (4.20-5.50); White Blood Count 3.2 X10*3/uL (4.8-10.8)
[2024-04-11 06:46] LABS: Alanine Aminotransferase 16 U/L (0-31); Alkaline Phosphatase 70 U/L (39-117); Anion Gap 14 (12-20); Aspartate Amino Transferase 26 U/L (5-31); Blood Urea Nitrogen 12 mg/dL (9-16); Calcium 8.5 mg/dL (8.4-10.2); Carbon Dioxide 26 mmol/L (22-29); Chloride 107 mmol/L (96-108); Creatinine Clr Calc Pharmacy 47.9; Estimated Glomerular Filt Rate > 60; Glucose Fasting 121 mg/dL (60-99); Potassium 3.7 mmol/L (3.3-5.1); Sodium 143 mmol/L (135-145); Total Protein 6.2 g/dL (6.5-8.0)
[2024-04-11 07:17] LABS: Glucose, Whole Blood 125 mg/dL (60-115)
--- NOTE | 2024-04-11 08:48 | PC.NURSE ---
Afib hr 60-70 ' dipped to 34 HR x 2 this am , Dr Deutsch was notified , per DR Deutsch and Dr Rodriges from cardiology both said to hold Diltiazem and Metoprolol this am
--- NOTE | 2024-04-11 09:39 | PM.PNCARD ---
Subjective Subjective Date of Service: 04/11/24 Interval history: Seen in follow-up. No new complaints. Review of Systems Review of Systems Yes all other systems are reviewed and are negative Constitutional: Reports as per HPI and Reports no additional constitutional complaints Eyes: Reports as per HPI and Denies no additional eye complaints Denies system reviewed and no additional complaints, except as documented and Reports as per HPI Cardiovascular: Reports as per HPI, Reports no additional cardiovascular complaints, Denies acrocyanosis, Denies cool extremities, Denies chest pain, Denies leg edema, Denies lightheadedness, Denies palpitations and Denies dyspnea Respiratory: Reports as per HPI, Denies no additional respiratory complaints and Denies dyspnea Gastrointestinal: Reports as per HPI and Denies no additional gastrointestinal complaints Genitourinary: Reports as per HPI Musculoskeletal: Reports no additional musculoskeletal complaints and Reports as per HPI Skin/Breast: Reports system reviewed and no additional complaints, except as docu Reports system reviewed and no additional complaints, except as documented and Reports as per HPI Psychiatric: Reports no additional psychiatric complaints and Reports as per HPI Endocrine: Reports no additional endocrine complaints, Reports as per HPI and Denies palpitations Hematologic/Lymphatic: Reports no additional hematologic/lymphatic complaints and Reports as per HPI Allergic/Immunologic: Reports no additional allergic/immunologic complaints and Reports as per HPI Physical Exam Vital Signs: Last Vital Signs Temp 98.9 F 04/11/24 07:10 Pulse 65 04/11/24 08:34 Resp 18 04/11/24 07:10 BP 148/65 H 04/11/24 08:34 Pulse Ox 97 04/11/24 07:10 O2 Del Method Room Air 04/11/24 07:10 O2 Flow Rate 2 04/08/24 16:00 BMI result Body Mass Index 22.3 Const General: comfortable and no acute distress Orientation/consciousness: patient oriented x3 HEENT Other: Unremarkable Head: Yes normal to inspection Neck Neck: Yes normal visual inspection Chest Chest palpation & inspection: normal inspection of the chest Resp Auscultation: clear to auscultation bilaterally Cardio Palpation: normal PMI Heart sounds: S1 normal heart sound present, S2 normal heart sound present, no gallops, no murmurs and no rubs GI Palpation (GI): Soft to palpation Back/Spine/Pelvis Other: unremarkable Skin General skin exam: no rashes or lesions noted Neuro General: patient oriented x3 Extrem General: Yes normal to inspection Psych Mental Status: mental status grossly normal Objective Labs and Meds 04/11/24 05:55 04/11/24 05:55 Lab results: Laboratory Results - last 24 hr 04/10/24 04/10/24 04/10/24 11:38 15:09 21:01 WBC RBC Hgb Hct MCV MCH MCHC RDW Plt Count MPV Immature Gran % (Auto) Neut % (Auto) Lymph % (Auto) [place] % (Auto) Eos % (Auto) Baso % (Auto) Lymph # (Auto) [place] # (Auto) Eos # (Auto) Baso # (Auto) Abs Immat Gran (auto) Absolute Neuts (auto) Absolute Nucleated RBC Nucleated RBC % (auto) Sodium Potassium Chloride Carbon Dioxide Anion Gap BUN Creatinine Estim Creat Clear Calc Estimated GFR POC Glucose 201 H 155 H 116 H Fasting Glucose Calcium Total Bilirubin AST ALT Alkaline Phosphatase Total Protein Albumin 04/11/24 04/11/24 05:55 07:12 WBC 3.2 L RBC 3.29 L Hgb 9.7 L Hct 28.8 L MCV 87.5 MCH 29.5 MCHC 33.7 RDW 13.0 Plt Count 138 L MPV 10.9 Immature Gran % (Auto) 0.6 H Neut % (Auto) 57.5 Lymph % (Auto) 30.5 [place] % (Auto) 10.5 Eos % (Auto) 0.6 Baso % (Auto) 0.3 Lymph # (Auto) 1.0 L [place] # (Auto) 0.3 Eos # (Auto) 0.0 Baso # (Auto) 0.0 Abs Immat Gran (auto) 0.02 Absolute Neuts (auto) 1.8 L Absolute Nucleated RBC 0.000 Nucleated RBC % (auto) 0.0 Sodium 143 Potassium 3.7 Chloride 107 Carbon Dioxide 26 Anion Gap 14 BUN 12 Creatinine 0.78 Estim Creat Clear Calc 47.9 Estimated GFR > 60 POC Glucose 125 H Fasting Glucose 121 H Calcium 8.5 Total Bilirubin 1.0 AST 26 ALT 16 Alkaline Phosphatase 70 Total Protein 6.2 L Albumin 3.0 L Progress Note: A&P Assessment and plan (1) Atrial fibrillation with rapid ventricular response: Status: Acute (2) COVID-19: Status: Acute Plan Cardiac studies reviewed. Echocardiogram with LVEF 55-60%. Possible basal inferior hypokinesis in some views. Myocardial perfusion imaging study shows likely normal perfusion. Holter monitor shows atrial fibrillation with an average rate of 95/Min. About 13% of the time, rate is over 100/Min. Overall, persistent atrial fibrillation, COVID infection. In this hospitalization, she did have a slightly rapid rate which could be from the COVID. Then digoxin was added and then now she is on the slower side. Currently, rate about 60/Min. It did slow down lower than that but nothing profound. At home, she is on metoprolol/diltiazem. Once the rate is more stable, we can resume dose. She did receive a digoxin load but maintenance can be decided based on the heart rates. Time Spent With Patient Time: Total time managing care of this patient today ____ minutes. Progress Note: Quality Stroke Does the patient have a stroke diagnosis?: No Procedures Date of Service Date of Service: 04/11/24
[2024-04-11] MEDS: Magnesium Oxide 400 MG TABLET PO ×2 (09:54→16:45)
[2024-04-11] MEDS: Rivaroxaban 15 MG TABLET PO (09:54)
[2024-04-11] MEDS: 0.9 % Sodium Chloride Flush 3 ML SYRINGE IVFLUSH ×2 (09:58→15:58)
[2024-04-11 11:39] LABS: Glucose, Whole Blood 139 mg/dL (60-115)
--- NOTE | 2024-04-11 13:51 | MHC.CM.PN ---
Per rounds, pt is not yet ready for DC. DCP is home, resume [employer] services.
--- NOTE | 2024-04-11 15:35 | HO.PM.IMPN ---
Subjective Subjective Date of Service: 04/11/24 Interval History: Feeling better this morning, noted to have low heart rate with stable blood pressures. Daughter at bedside assisted in history, patient denies chest pain, no palpitations, no lightheadedness, no dizziness, shortness of breath improving, no nausea no vomiting tolerating diet no other acute issues overnight. Review of Systems All other system reviewed and are negative. Physical Exam Vital Signs: Vital Signs: Last Vital Signs Temp 98.9 F 04/11/24 15:32 Pulse 82 04/11/24 15:32 Resp 18 04/11/24 15:32 BP 163/71 H 04/11/24 15:32 Pulse Ox 97 04/11/24 15:32 O2 Del Method Room Air 04/11/24 15:32 O2 Flow Rate 2 04/08/24 16:00 BMI result Body Mass Index 22.3 Const: Other: General awake alert, in no acute distress. Anicteric sclera Neck supple no JVD. CVS irregular rate rhythm Respiratory lungs coarse breath sound, no respiratory distress, no rales Gastrointestinal abdomen soft, non tender, bowel sounds audible, no guarding , no rigidity. Extremities no edema. Left AKA Neuro non focal, moving all 4 extremity speech clear. Skin no rash Appropriate affect Objective Data Active Medications Acetaminophen (Acetaminophen 325 Mg Tablet) 650 mg PO Q6H PRN PRN Reason: Pain, Mild (Pain Scale 1-3), fever or headache Last Admin: 04/10/24 21:14 Dose: 650 mg Documented By: KARINA Calcium Carbonate (Calcium Carbonate 750 Mg Tab.Chew) 750 mg PO Q4H PRN PRN Reason: Heartburn Diltiazem HCl (Diltiazem Hcl Cd 120 Mg Cap.Er.Deg) 120 mg PO DAILY [facility]; Protocol Last Admin: 04/11/24 08:46 Dose: Not Given Documented By: ANDI Non-Admin Reason: Physician Held Med Gabapentin (Gabapentin 100 Mg Capsule) 100 mg PO BEDTIME [facility] Last Admin: 04/10/24 21:14 Dose: 100 mg Documented By: KARINA Insulin Human Lispro (Insulin Lispro 100 Unit/Ml 3 Ml Vial) 0 unit SUBCUT QIDACHS [facility]; Protocol Last Admin: 04/11/24 12:17 Dose: Not Given Documented By: ANDI Non-Admin Reason: No Insulin Coverage Magnesium Hydroxide (Milk Of Magnesia 30 Ml Oral.Susp) 30 ml PO DAILY PRN PRN Reason: Constipation Magnesium Oxide (Magnesium Oxide 400 Mg Tablet) 400 mg PO BIDPC [facility] Last Admin: 04/11/24 09:54 Dose: 400 mg Documented By: ANDI Melatonin (Melatonin 3 Mg Tablet) 6 mg PO BEDTIME PRN PRN Reason: Insomnia Last Admin: 04/10/24 21:14 Dose: 6 mg Documented By: KARINA Metoprolol Succinate (Metoprolol Succinate Er 100 Mg Tab.Er.24h) 100 mg PO DAILY [facility]; Protocol Last Admin: 04/11/24 08:48 Dose: Not Given Documented By: ANDI Non-Admin Reason: Physician Held Med Omeprazole (Omeprazole 20 Mg Capsule.Dr) 20 mg PO DAILY@0630 [facility] Last Admin: 04/11/24 06:26 Dose: Not Given Documented By: KARINA Non-Admin Reason: Patient Refused Ondansetron HCl (Ondansetron Hcl 4 Mg/2 Ml Vial) 4 mg IVPUSH Q8H PRN PRN Reason: Nausea and Vomiting Rivaroxaban (Rivaroxaban 15 Mg Tablet) 15 mg PO DAILY [facility] Last Admin: 04/11/24 09:54 Dose: 15 mg Documented By: ANDI Sodium Chloride (0.9 % Sodium Chloride Flush 3 Ml Syringe) 3 ml IVFLUSH QSHIFT [facility] Last Admin: 04/11/24 09:58 Dose: 3 ml Documented By: ANDI Labs 04/11/24 05:55 04/11/24 05:55 Labs: Laboratory Results - last 24 hr 04/10/24 04/11/24 04/11/24 21:01 05:55 07:12 MCV 87.5 MCH 29.5 MCHC 33.7 RDW 13.0 Plt Count 138 L MPV 10.9 Immature Gran % (Auto) 0.6 H Neut % (Auto) 57.5 Lymph % (Auto) 30.5 Swain % (Auto) 10.5 Eos % (Auto) 0.6 Baso % (Auto) 0.3 Lymph # (Auto) 1.0 L Swain # (Auto) 0.3 Eos # (Auto) 0.0 Baso # (Auto) 0.0 Abs Immat Gran (auto) 0.02 Absolute Neuts (auto) 1.8 L Absolute Nucleated RBC 0.000 Nucleated RBC % (auto) 0.0 Anion Gap 14 Estim Creat Clear Calc 47.9 Estimated GFR > 60 POC Glucose 116 H 125 H Fasting Glucose 121 H Calcium 8.5 Total Bilirubin 1.0 AST 26 ALT 16 Alkaline Phosphatase 70 Total Protein 6.2 L Albumin 3.0 L 04/11/24 11:35 MCV MCH MCHC RDW Plt Count MPV Immature Gran % (Auto) Neut % (Auto) Lymph % (Auto) Swain % (Auto) Eos % (Auto) Baso % (Auto) Lymph # (Auto) Swain # (Auto) Eos # (Auto) Baso # (Auto) Abs Immat Gran (auto) Absolute Neuts (auto) Absolute Nucleated RBC Nucleated RBC % (auto) Anion Gap Estim Creat Clear Calc Estimated GFR POC Glucose 139 H Fasting Glucose Calcium Total Bilirubin AST ALT Alkaline Phosphatase Total Protein Albumin Assessment and Plan (1) Atrial fibrillation with rapid ventricular response: Status: Acute (2) COVID-19: Status: Acute Plan An 84 years old lady with PMH of Afib on Xarelto, PAD, HYN who presents with 3 days of nausea, vomiting and diarrhea along with generalized weakness. 1.Afib w RvR -s/p dig load p.o. this morning noted to have ventricular rate in 30s, improved to 60s and now in 80s with elevated blood pressure will continue Cardizem and metoprolol. Will hold daily digoxin. Being followed by Cardiology, Echocardiogram with LVEF 55-60%,basal inferior hypokinesis in some views. Myocardial perfusion imaging study shows likely normal perfusion. Holter monitor shows atrial fibrillation with an average rate of 95/Min. -Xarelto lowered to 15 mg for low CrCl -continue tele 2.Acute Covid infection complicated with acute metabolic encephalopathy and Viral sepsis on admission -sepsis resolved -Zofran prn/ 3.Acute on chronic anemia -hemoglobin stable -follow daily CBCs 4.Acute Hypomagnesemia -repleted and normalized 5. DM 2 -acceptable control on current therapies -lispro correctional scale, hold metformin -add back therapies as clinically appropriate Xarelto, Full code Patient will require ongoing hospitalization with for close tele monitoring for atrial fibrillation with RVR. Quality Stroke Does the patient have a stroke diagnosis?: No VTE Prior VTE?: No VTE Risk Level:: Medical - moderate - high VTE Device Contraindication: Treatment Not Indicated VTE Drug Contraindication: Treatment Not Indicated
[2024-04-11 15:40] LABS: Glucose, Whole Blood 162 mg/dL (60-115)
--- NOTE | 2024-04-11 15:50 | PC.NURSE ---
Diltiazem 120 mg po administered now as per Dr Deutsch instructions , HR 80's afib ,
[2024-04-11] MEDS: dilTIAZem HCL CD 120 MG CAP.ER.DEG PO (15:52)
[2024-04-11] MEDS: Insulin Lispro 100 UNIT/ML 3 ML VIAL SUBCUT (16:45)
[2024-04-11 20:20] LABS: Glucose, Whole Blood 134 mg/dL (60-115)
[2024-04-11] MEDS: Gabapentin 100 MG CAPSULE PO (21:09)
[2024-04-11] MEDS: Melatonin 3 MG TABLET 6 MG PO (21:09)
[2024-04-12 03:27] VITALS: BP 112/72; PULSE 83; RESP 20; TEMP 37.4; O2SAT 97
[2024-04-12] MEDS: Omeprazole 20 MG CAPSULE.DR PO (06:30)
[2024-04-12 07:58] VITALS: BP 120/82; PULSE 97; RESP 18; TEMP 37; O2SAT 94
[2024-04-12 08:32] LABS: Glucose, Whole Blood 136 mg/dL (60-115)
[2024-04-12] MEDS: dilTIAZem HCL CD 120 MG CAP.ER.DEG PO (09:46)
[2024-04-12] MEDS: 0.9 % Sodium Chloride Flush 3 ML SYRINGE IVFLUSH (09:46)
[2024-04-12] MEDS: Magnesium Oxide 400 MG TABLET PO (09:46)
[2024-04-12] MEDS: Rivaroxaban 15 MG TABLET PO (09:46)
[2024-04-12 11:13] VITALS: BP 109/67; PULSE 86; RESP 18; TEMP 36.8; O2SAT 98
--- NOTE | 2024-04-12 11:14 | P.DS_ITS ---
DS: Providers Provider Date of Service: 04/12/24 Date of admission: 04/06/24 15:23 Date of discharge: 04/12/24 Primary care physician: Charla Sandhu MD Consults: 04/09/24 09:40 Consult to Cardiology Routine Consulting Provider: [facility] Reason for consultation: Afib w RvR, on Metoprolol and Cardizem, for eval and rec. DS: Diagnosis Discharge Diagnosis (1) Atrial fibrillation with rapid ventricular response: Status: Acute (2) COVID-19: Status: Acute DS: Summary Hospital Course Hospital Course: History of presenting illness: Date of Service: 04/06/24 Chief Complaint: AMS, weakness An 84 years old lady with PMH of Afib on Xarelto, PAD, HYN who presents with 3 days of nausea, vomiting and diarrhea along with generalized weakness. The patient reports feeling sick for few days now. started as chills and feeling weak then worsened. reports chills but no documented fever. cough but denies chest pain, palpitations. In ED found to be in Afib w RVr and tested positive for Covid19 Admitted for further work up and treatment. Hospital course: 84 years old lady with PMH of Afib on Xarelto, PAD, hypertension presented with 3 days of nausea, vomiting and diarrhea along with generalized weakness, diagnosed to have acute COVID infection complicated with acute metabolic encephalopathy and viral sepsis and admitted to isolation room, treated symptomatically, oxygenation remained stable, did not require treatment with steroids/ remdesivir, patient also noted to have atrial fibrillation with rapid ventricular likely due to COVID infection,she was continued on home dose of Cardizem and metoprolol and treated with digoxin load ventricular rate improved, confusion resolved, patient seems to be at her baseline therefore she is being discharged home on all of her baseline home medications, provide a including metoprolol, Cardizem and Xarelto. Acute on chronic anemia likely due to acute infection no acute blood loss noted recommend outpatient follow-up on H&H Acute Hypomagnesemia -repleted and normalized In regard to diabetes mellitus type 2 patient blood sugar remained stable recommend to continue home medications and follow diabetic diet. Time Attestation Discharge Coordination Time (in mins): 40 Quality: Safe Use of Opioids Does Pt have an Active Cancer Diagnosis on the Problem List?: No Quality: Stroke Does the patient have a stroke diagnosis?: No Physical Exam Vital Signs: Vital Signs: Last Vital Signs Temp 98.6 F 04/12/24 07:58 Pulse 97 04/12/24 07:58 Resp 18 04/12/24 07:58 BP 120/82 04/12/24 07:58 Pulse Ox 94 04/12/24 07:58 O2 Del Method Room Air 04/12/24 07:58 O2 Flow Rate 2 04/08/24 16:00 BMI result Body Mass Index 22.3 Const: Other: General awake alert, in no acute distress. Anicteric sclera Neck supple no JVD. CVS irregular rate rhythm Respiratory lungs coarse breath sound, no respiratory distress, no rales Gastrointestinal abdomen soft, non tender, bowel sounds audible, no guarding , no rigidity. Extremities no edema, Left AKA Neuro non focal, moving all 4 extremity speech clear. Skin no rash Appropriate affect DS: Data Data Completed and Pending Labs on day of discharge: Laboratory Results - last 24 hr 04/11/24 04/11/24 04/11/24 11:35 15:28 20:16 POC Glucose 139 H 162 H 134 H 04/12/24 08:03 POC Glucose 136 H Discharge Plan Discharge Anticipated Discharge Date/Time: 04/12/24 11:07 Patient Disposition: Home, Self-Care Discharge Diagnosis: Atrial fibrillation with RVR COVID-19 infection Referrals: Charla Sandhu MD [Primary Care Provider] - 1 Week Discharge Medications: Continued metoprolol succinate 50 mg tablet extended release 24 hr 75 mg PO DAILY 30 Days Qty: 45 1RF Protocol: Hold for SBP/HR < HOLD for SBP < : 90 HOLD for HR < : 60 atorvastatin 20 mg tablet 20 mg PO DAILY Qty: 30 0RF gabapentin 400 mg Capsule 400 mg PO BEDTIME ferrous sulfate [FeroSul] 325 mg (65 mg iron) tablet 650 mg PO DAILY diltiazem HCl [Cardizem CD] 120 mg Capsule,Extended Release 24hr 120 mg PO DAILY Qty: 30 0RF Protocol: Hold for SBP/HR < HOLD for SBP < : 90 HOLD for HR < : 60 pantoprazole 40 mg tablet,delayed release (DR/EC) 40 mg PO DAILY@0630 metformin 1,000 mg tablet 1,000 mg PO BIDWM Tradjenta 5 mg tablet 5 mg PO DAILY donepezil 5 mg tablet 5 mg PO BEDTIME Xarelto 20 mg tablet 20 mg PO DAILY@1700 Rx Instructions: must administer with evening meal Discharge Orders: Discharge Order (Routine); Ordered 04/12/24 Ordered By: Audrey Deutsch Diet: Diabetic diet Activity on Discharge: As tolerated Stand Alone Forms: Patient Portal Discharge page Print Language: Citizen Of [place] Care Plan Goals: Atrial fibrillation with rapid ventricular response resolved continue home medications COVID-19 infection continue activity as tolerated, use cough medication as needed and Tylenol for pain Health Concerns: Continue all home medications Plan of Treatment: Outpatient follow-up with primary care physician call for appointment Assessment: as above Discharge Date/Time: 04/12/24 12:05
[2024-04-12 11:41] LABS: Glucose, Whole Blood 158 mg/dL (60-115)
--- NOTE | 2024-04-12 12:07 | MHC.CM.PN ---
IMM 04/12/24 Patient is discharged to home today. [facility] [employer] services will resume. Patients son will provide transport home.
== END 2024-04-12 12:05 | disposition home or self-care (01) | DRG 871 ==
LOC: HO.ED 14:36 → HO.EDOVER 15:31 → HO.IMC 04-08 07:21
PROVIDERS: Hospitalist; Physician Assistant Medical; Admitting Provider Student in an Organized Health Care Education/Training Program; Emergency Provider Emergency Medicine; PCP Pediatrics; Visit Provider Hospitalist
DX: A41.89 Other specified sepsis (principal); G93.41 Metabolic encephalopathy; U07.1 COVID-19; I48.19 Other persistent atrial fibrillation; E11.51 Type 2 diabetes mellitus with diabetic peripheral angiopathy without gangrene; D64.9 Anemia, unspecified; E78.5 Hyperlipidemia, unspecified; E83.42 Hypomagnesemia; Z89.612 Acquired absence of left leg above knee; G30.9 Alzheimer's disease, unspecified; F02.80 Dementia in other diseases classified elsewhere, unspecified severity, without behavioral disturbance, psychotic disturbance, mood disturbance, and anxiety; Z79.01 Long term (current) use of anticoagulants; Z79.84 Long term (current) use of oral hypoglycemic drugs; Z79.899 Other long term (current) drug therapy
CPT/HCPCS: 0241U; 36415; 71045; 80048; 80053; 81001; 82947; 83690; 83735; 84484; 85025; 85027; 93005; 97162; 97530; 99212; 99285; J0696; J2405; J3475

== ENCOUNTER → 2024-04-06 10:39 | Outpatient (BNV) | payer MEDICARE, MEDICAID, SELFPAY | PROVIDERS: Admitting Provider Student in an Organized Health Care Education/Training Program; Emergency Provider Emergency Medicine; PCP Pediatrics; Visit Provider Internal Medicine | DX: R00.0 Tachycardia, unspecified (principal); R94.31 Abnormal electrocardiogram [ECG] [EKG] | CPT/HCPCS: 93010 ==

== ENCOUNTER → 2024-04-06 15:23 | Outpatient (BNV) | payer MEDICARE, MEDICAID, SELFPAY | PROVIDERS: Admitting Provider Student in an Organized Health Care Education/Training Program; Emergency Provider Emergency Medicine; PCP Pediatrics; Visit Provider Internal Medicine | DX: I48.91 Unspecified atrial fibrillation (principal); U07.1 COVID-19 | CPT/HCPCS: 99223; 99233 ==

== ENCOUNTER → 2024-04-06 15:23 | Outpatient (BNV) | payer MEDICARE, MEDICAID, SELFPAY | PROVIDERS: Admitting Provider Student in an Organized Health Care Education/Training Program; Emergency Provider Emergency Medicine; PCP Pediatrics; Visit Provider Student in an Organized Health Care Education/Training Program | DX: I48.91 Unspecified atrial fibrillation (principal); U07.1 COVID-19 | CPT/HCPCS: 99223; 99232; 99239 ==

== ENCOUNTER 2024-10-03 10:07 | Day surgery (SDC) | payer MEDICARE, MEDICAID, SELFPAY ==
[2024-10-01 15:47] VITALS: BMI 22.3
--- NOTE | 2024-10-02 11:03 | HO.ANESPROP2 ---
HPI - Anesthesia Eval Consult details Narrative: 84yo F for Colonoscopy Follows [facility] Cardiology for afib (xarelto), htn. Optimized for colo per 03/2024 office visit. Pt admitted to [facility] 03/2024 with COVID, afib RVR. Cardiac eval during inpt. Per workload, ok to proceed if pt remains stable/asymptomatic PCP f/u post discharge, stable. HR irreg but not tachy Anesthesia Pre-Procedure Meds Is the patient on any of the following meds?: GLP1/DPP4 PMFSH Active Problems Active Problems: All Active Problems COVID-19 (Acute) Influenza (Acute) PAD (peripheral artery disease) (Acute) Encounter for pre-operative cardiovascular clearance (Acute) Hypertension (Acute) Past Medical History Medical History (Updated 10/01/24 @ 16:01 by Clara Eric, RN) HLD (hyperlipidemia) Anemia GERD (gastroesophageal reflux disease) Personal history of COVID-19 (04/06/24) Encounter for pre-operative cardiovascular clearance Alzheimer disease Hypertension Diabetes Atrial fibrillation with rapid ventricular response Surgical History Surgical History 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) Social History Social History Household Members: Family Housing: Apartment Do you presently have visiting nurse or other home services: Yes Alcohol intake: never Patient Tobacco Use Status: Never used Tobacco Second Hand Smoke Exposure: No service: No Meds Allergies Allergy/AdvReac Type Severity Reaction Status Date / Time No Known Allergies Allergy Verified 04/06/24 10:23 Home Medications ?Medication ?Instructions ?Recorded ?Confirmed ?Last Taken ?Type gabapentin 400 mg capsule 400 mg PO BEDTIME 01/16/23 10/01/24 10/13/23 History ferrous sulfate 325 mg (65 mg 650 mg PO DAILY 10/14/23 10/01/24 04/06/24 09:00 History iron) tablet (FeroSul) donepezil 5 mg tablet 5 mg PO BEDTIME 04/06/24 10/01/24 Unknown History linagliptin 5 mg tablet (Tradjenta) 5 mg PO DAILY 04/06/24 10/01/24 04/06/24 09:00 History metformin 1,000 mg tablet 1,000 mg PO BIDWM 04/06/24 10/01/24 04/06/24 09:00 History pantoprazole 40 mg tablet,delayed 40 mg PO DAILY@0630 04/06/24 10/01/24 04/06/24 09:00 History release rivaroxaban 20 mg tablet (Xarelto) 20 mg PO DAILY@1700 04/06/24 10/01/24 04/06/24 09:00 History Exam Height,Weight and Vital Signs: Height 5 ft 3 in Weight 57.2 kg Pertinent Lab Results Pertinent Lab Results: Laboratory Tests 04/11/24 05:55 WBC 3.2 L Hgb 9.7 L Hct 28.8 L Plt Count 138 L Sodium 143 Potassium 3.7 Chloride 107 Carbon Dioxide 26 BUN 12 Creatinine 0.78 Narrative Narrative: EKG 03/2024 Vent. Rate : 123 BPM Atrial Rate : 000 BPM P-R Int : 000 ms QRS Dur : 078 ms QT Int : 314 ms P-R-T Axes : 000 025 233 degrees QTc Int : 449 ms Atrial fibrillation with rapid ventricular response Septal infarct (cited on or before 14-OCT-2023) Marked ST abnormality, possible inferior subendocardial injury Abnormal ECG When compared with ECG of 14-OCT-2023 14:19, T wave inversion now evident in Inferior leads ECHO 2023 Conclusions: - The left ventricular systolic function is normal. The visually estimated ejection fraction is between 55-60%. - Suggestion of basal inferior hypokinesis in some views. - No obvious valvular pathology seen on this study. - Mild pulmonary hypertension is present. NM cardiolite stress test 2023 Impression: 1. Myocardial perfusion imaging study shows likely normal myocardial perfusion. 2. Gated LVEF is 58% during stress; > 70% during rest. 3. Transient ischemic dilatation not present. EKG component of the test reported separately. Assessment and Plan Assessment Anesthesia Assessment: Chart Reviewed
[2024-10-03] VITALS (9 sets, daily range): BP systolic 101–146; BP diastolic 54–95; PULSE 68–126; RESP 16–18; TEMP 36.1–36.6; O2SAT 98–100
--- OUTSIDE RECORDS SUMMARY | 2024-10-03 11:00 | XMS_ITS | Clinical Summary ---
Author Organization [facility] it Address [id number] [place] [id number] Care Team Providers Care Animal Doctor Name Role Phone Asia Cardenas MD Primary Care Provider [phone] Social History Tobacco Use Types Packs/Day Years Used Date Smoking Tobacco: Never Assessed Sex and Gender Information Value Date Recorded Sex Assigned at Not on file Gender Identity Not on file Sexual Orientation Not on file Last Filed Vital Signs Vital Sign Reading Time Taken Comments Blood Pressure - - Pulse - - Temperature - - Respiratory Rate - - Oxygen Saturation - - Inhaled Oxygen Concentration - - Weight 69.9 kg (154 lb) 12/06/2023 1:13 PM EDT Height 160 cm (5' 3 ) 12/06/2023 1:13 PM EDT Body Mass Index 27.28 12/06/2023 1:13 PM EDT Plan of Treatment Health Maintenance Due Date Last Done Comments Pneumococcal Vaccine: 65+ Ye ars (1 of 2 - PCV) [birth year]19/1946 DTaP,Tdap,and Td Vaccines (1 - Tdap) 1961 Zoster Vaccines (1 of 2) 01/19/1992 RSV Immunization Patients 60 + Years Old (1 - 1-dose 75+ series) 2017 Depression Screening 09/20/2023 Falls Risk Assessment 09/20/2023 Osteoporosis Screening (Bone Density Screening) 09/20/2023 Social Influencers of Health Screening 09/20/2023 COVID-19 Vaccine ( - 2023-2 5 season) 2024 Influenza Vaccine (#1) 2024 HIB Vaccines Aged Out No longer eligi ble based on patient's age to complete this topic HPV Vaccines Aged Out No longer eligi ble based on patient's age to complete this topic Hepatitis A Vaccines Aged Out No long er eligible based on patient's age to complete this topic Hepatitis B Vaccines Aged Out No long er eligible based on patient's age to complete this topic IPV Vaccines Aged Out No longer eligi ble based on patient's age to complete this topic MMR Vaccines Aged Out No longer eligi ble based on patient's age to complete this topic Meningococcal ACWY Vaccine Aged Out N o longer eligible based on patient's age to complete this topic RSV Immunization Patients Un odalis 20 months Aged Out No longer eligible b ased on patient's age to complete this topic Varicella Vaccines Aged Out No longer eligible based on patient's age to complete this topic Advance Directives Documents on File Type Date Recorded 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
--- NOTE | 2024-10-03 11:55 | HO.ANESPROP2 ---
[facility] Active Problems Active Problems: All Active Problems COVID-19 (Acute) Influenza (Acute) PAD (peripheral artery disease) (Acute) Encounter for pre-operative cardiovascular clearance (Acute) Hypertension (Acute) Past Medical History Medical History HLD (hyperlipidemia) Anemia GERD (gastroesophageal reflux disease) Personal history of COVID-19 (04/06/24) Encounter for pre-operative cardiovascular clearance Alzheimer disease Hypertension Diabetes Atrial fibrillation with rapid ventricular response Functional capacity: independent ambulation Patient : No Family History Family history of problems with anesthesia: No Surgical History Surgical History 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) History of Problems with Anesthesia: No Social History Social History Household Members: Family Housing: Apartment Do you presently have visiting nurse or other home services: Yes Alcohol intake: never Patient Tobacco Use Status: Never used Tobacco Second Hand Smoke Exposure: No Advance Directives: No Advance Directives Information Provided: Yes service: No Meds Allergies Allergy/AdvReac Type Severity Reaction Status Date / Time No Known Allergies Allergy Verified 04/06/24 10:23 Active Medications: Current Medications Lactated Ringer's (Lr) 1,000 mls @ 100 mls/hr IVCONT .Q10H SAMPSON Home Medications ?Medication ?Instructions ?Recorded ?Confirmed ?Last Taken ?Type gabapentin 400 mg capsule 400 mg PO BEDTIME 01/16/23 10/01/24 10/13/23 History ferrous sulfate 325 mg (65 mg 650 mg PO DAILY 10/14/23 10/01/24 04/06/24 09:00 History iron) tablet (FeroSul) donepezil 5 mg tablet 5 mg PO BEDTIME 04/06/24 10/01/24 Unknown History linagliptin 5 mg tablet (Tradjenta) 5 mg PO DAILY 04/06/24 10/01/24 04/06/24 09:00 History metformin 1,000 mg tablet 1,000 mg PO BIDWM 04/06/24 10/01/24 04/06/24 09:00 History pantoprazole 40 mg tablet,delayed 40 mg PO DAILY@0630 04/06/24 10/01/24 04/06/24 09:00 History release rivaroxaban 20 mg tablet (Xarelto) 20 mg PO DAILY@1700 04/06/24 10/01/24 04/06/24 09:00 History Exam Height,Weight and Vital Signs: Height 5 ft 3 in Weight 57.2 kg Airway Mallampati Class: II TM Dist: >3cm Neck ROM: Full Heart: RRR Lungs: CTA Assessment and Plan Assessment Anesthesia Assessment: Anesthesia Plan Discussed and Chart Reviewed Final Anesthetic Review Family History of Problems with Anesthesia: No History of Problems with Anesthesia: No NPO: Yes ASA Class: III Final Preanesthetic Review: Meds/Allgs Chart Reviewed, Consent Obtained/Reviewed and Anes Risks/Benef Reviewed Patient Risk: Low Procedure Risk: Low Anesthetic Plan Anesthetic Plan: MAC: Disposition: Standard PACU
[2024-10-03 12:27] LABS: Glucose, Whole Blood 99 mg/dL (60-115)
--- NOTE | 2024-10-03 12:53 | MHC.SHP ---
Pre-Procedural Eval Section A - 24 Hr Update-Section A only Date of Service: 10/03/24 The patient is an INPATIENT: No The patient has been examined within 24 hours of the surgical procedure. The History & Physical has been completed within 30 days and I have reviewed it.: No Section B - Complete if H&P > 30 days Chief Complaint: Other fecal abnormalities Relevant Family History (Specify if Yes): No Relevant Social History: None Present Medications: see Short Stay Collaborative assessment Medical History: Significant History (Atrial fibrillation with rapid ventricular response Alzheimer disease Hypertension Diabetes) History of Previous Operations: Relevant previous surgery/procedure and date(s) (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)) Allergies: Allergies Allergy/AdvReac Type Severity Reaction Status Date / Time No Known Allergies Allergy Verified 10/03/24 12:24 Review of Systems Sugical H&P ROS: Negative: Constitution, Cardiovascular, Respiratory and Gastrointestinal Exam Surgical H&P Exam: Normal: Heart, Normal: Lungs, Normal: Extremities and Normal: Abdomen Plan Diagnosis/Plan: Unchanged I have reviewed the history and physical and performed a pertinent physical examination on my patient. No changes have occurred unless specified. Time Spent With Patient Time: Total time managing care of this patient today ____ minutes.
--- NOTE | 2024-10-03 12:58 | HO.ANESPROP2 ---
[facility] Active Problems Active Problems: All Active Problems COVID-19 (Acute) Influenza (Acute) PAD (peripheral artery disease) (Acute) Encounter for pre-operative cardiovascular clearance (Acute) Hypertension (Acute) Past Medical History Medical History HLD (hyperlipidemia) Anemia GERD (gastroesophageal reflux disease) Personal history of COVID-19 (04/06/24) Encounter for pre-operative cardiovascular clearance Alzheimer disease Hypertension Diabetes Atrial fibrillation with rapid ventricular response Functional capacity: independent ambulation Patient : No Family History Family history of problems with anesthesia: No Surgical History Surgical History 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 If so, by whom?: No Are you DNR?: No Advance Directives: No Advance Directives Information Provided: Yes Recently lost weight without trying: No Nutrition Risks: No Nutritional Risk Patient : No service: No Meds Allergies Allergy/AdvReac Type Severity Reaction Status Date / Time No Known Allergies Allergy Verified 10/03/24 12:24 Active Medications: Current Medications Lactated Ringer's (Lr) 1,000 mls @ 100 mls/hr IVCONT .Q10H SAMPSON Naloxone HCl (Naloxone Hcl 0.4 Mg/Ml Vial) 0.04 mg IVPUSH Q5M PRN PRN Reason: Excessive sedation or RR < 8 Home Medications ?Medication ?Instructions ?Recorded ?Confirmed ?Last Taken ?Type gabapentin 400 mg capsule 400 mg PO BEDTIME 01/16/23 10/01/24 10/13/23 History ferrous sulfate 325 mg (65 mg 650 mg PO DAILY 10/14/23 10/01/24 04/06/24 09:00 History iron) tablet (FeroSul) donepezil 5 mg tablet 5 mg PO BEDTIME 04/06/24 10/01/24 Unknown History linagliptin 5 mg tablet (Tradjenta) 5 mg PO DAILY 04/06/24 10/01/24 09/30/24 History metformin 1,000 mg tablet 1,000 mg PO BIDWM 04/06/24 10/01/24 04/06/24 09:00 History pantoprazole 40 mg tablet,delayed 40 mg PO DAILY@0630 04/06/24 10/01/24 04/06/24 09:00 History release rivaroxaban 20 mg tablet (Xarelto) 20 mg PO DAILY@1700 04/06/24 10/01/24 09/30/24 History Exam Height,Weight and Vital Signs: Height 5 ft 3 in Weight 57.2 kg Last Vital Signs Temp 97.9 F 10/03/24 12:16 Pulse 99 10/03/24 12:16 Resp 18 10/03/24 12:16 BP 146/87 H 10/03/24 12:16 Pulse Ox 99 10/03/24 12:16 O2 Del Method Room Air 10/03/24 12:16 Pertinent Lab Results Pertinent Lab Results: Laboratory Tests 10/03/24 12:04 POC Glucose 99 Airway Mallampati Class: III TM Dist: >3cm Neck ROM: Full Heart: RRR Lungs: CTA Assessment and Plan Assessment Anesthesia Assessment: Anesthesia Plan Discussed and Chart Reviewed Final Anesthetic Review Family History of Problems with Anesthesia: No History of Problems with Anesthesia: No ASA Class: III Final Preanesthetic Review: Meds/Allgs Chart Reviewed and Consent Obtained/Reviewed Patient Risk: Intermediate Procedure Risk: Low Anesthetic Plan Anesthetic Plan: MAC: Disposition: Standard PACU
--- NOTE | 2024-10-03 13:05 | PC.NURSE ---
patient is alert to person and place only. granddaughter is next of kin in chart, present and will sign consents.
--- NOTE | 2024-10-03 14:00 | HO.OPN-COLON ---
Colonoscopy Operative Note Operative Note Date of Service: 10/03/24 Narrative: COLONOSCOPY TILL CECUM WITH SNARE POLYPECTOMY AND HEMOCLIP PLACEMENT. Pre-op diagnosis: Positive Cologuard test. Post-op diagnosis:? Colon polyps, Diverticulosis, hemorrhoids Endoscopist:? Erna Cruz MD Anesthesia:?MAC Consent: Indications for the procedure and potential complications of bleeding, perforation, reaction to medications and missed diagnosis were discussed with the patient and informed consent was obtained. Instrument: Olympus PCF H 190 L variable stiffness pediatric colonoscope Monitoring: Vital signs and clinical assessment, intermittent blood pressure monitoring, continuous EKG monitoring, Pulse oximetry and Carbon Dioxide monitoring were done throughout the procedure. Please see anesthesia flowsheet. Colon withdrawl time was 27 minutes. Procedure: The patient was placed in the left lateral decubitis position and pre-procedure medications were administered. After a digital rectal examination of the ano-rectum, the video colonoscope was inserted into the rectum and advanced through the colon to the cecum. The colonoscope was slowly withdrawn in a retrograde panoramic fashion and the colon mucosa was carefully examined including a retroflexed view of the rectum. Findings and interventions are described below. Procedure Difficulty: There was a narrowing of the sigmoid colon from 35 to 40 cms due to severe diverticulosis with superimposed spasm which was navigated with some difficulty Findings: Terminal Ileum: Not evaluated Cecum: Normal Ascending Colon: A 6-7 mm sessile polyp in the distal AC - removed with a cold snare. Moderate diverticulosis throughout the entire colon Transverse Colon: Moderate diverticulosis throughout the entire colon Descending Colon: Moderate diverticulosis throughout the entire colon Sigmoid Colon: A 10-12 mm sessile polyp at 40 cms - removed with a hot snare. Polypectomy site was closed with 1 hemoclip. Severe diverticulosis with luminal narrowing Rectum: A 5-6 mm sessile polyp - removed with a cold snare Ano-rectum: Moderate internal hemorrhoids Colon preparation: Good after copious irrigation. [place] Bowel Preparation Scale Right colon; 2 Transverse colon: 2 Left colon; 2 (0 = Unprepared colon segment with mucosa not seen due to solid stool that cannot be cleared. 1 = Portion of mucosa of the colon segment seen, but other areas of the colon segment not well seen due to staining, residual stool and/or opaque liquid. 2 = Minor amount of residual staining, small fragments of stool and/or opaque liquid, but mucosa of colon segment seen well. 3 = Entire mucosa of colon segment seen well with no residual staining, small fragments of stool or opaque liquid) Impression and Post Procedure Diagnosis: Colonoscopy Findings: Two small and one medium sized polyps were removed Moderate to severe diverticulosis seen in the entire colon Moderate hemorrhoids on retroflexed exam. Plan: Pt has a FU appointment on 10/17/24 with Conuselo Burns NP Repeat Colonoscopy is not recommended due to advance age, dementia and comorbidities. Above findings were reviewed with the patient and relevant handouts were given and the discharge area.
== END 2024-10-03 15:58 | disposition home or self-care (01) ==
PROVIDERS: PCP Pediatrics; Visit Provider Internal Medicine Gastroenterology
PROC: 0DJD8ZZ Inspection of Lower Intestinal Tract, Via Natural or Artificial Opening Endoscopic (ICD-10-PCS; CPT 45378; principal; 2024-10-03 13:30)
DX: R19.5 Other fecal abnormalities (principal); D12.2 Benign neoplasm of ascending colon; D12.5 Benign neoplasm of sigmoid colon; K62.1 Rectal polyp; K57.30 Diverticulosis of large intestine without perforation or abscess without bleeding; K64.8 Other hemorrhoids; K21.9 Gastro-esophageal reflux disease without esophagitis; G30.9 Alzheimer's disease, unspecified; F02.80 Dementia in other diseases classified elsewhere, unspecified severity, without behavioral disturbance, psychotic disturbance, mood disturbance, and anxiety; D64.9 Anemia, unspecified; I10 Essential (primary) hypertension; E78.5 Hyperlipidemia, unspecified; E11.9 Type 2 diabetes mellitus without complications; I48.20 Chronic atrial fibrillation, unspecified; Z89.612 Acquired absence of left leg above knee; Z79.01 Long term (current) use of anticoagulants; Z79.84 Long term (current) use of oral hypoglycemic drugs; Z79.899 Other long term (current) drug therapy
CPT/HCPCS: 45385; 82947; 88305; J1805; J2003; J2250; J2371; J2704; J3010

== ENCOUNTER → 2024-10-03 10:07 | Outpatient (BNV) | payer MEDICARE, MEDICAID, SELFPAY | PROVIDERS: PCP Pediatrics; Visit Provider Internal Medicine Gastroenterology | DX: Z12.11 Encounter for screening for malignant neoplasm of colon (principal); R19.5 Other fecal abnormalities; D12.2 Benign neoplasm of ascending colon; K57.90 Diverticulosis of intestine, part unspecified, without perforation or abscess without bleeding | CPT/HCPCS: 45385 ==